=== PATIENT | male | born 1940 | race Caucasian/White ===

== ENCOUNTER → 2018-04-24 | Outpatient (CLI) | payer MEDICARE ==
--- NOTE | 2018-04-24 18:03 | CT ---
EXAMINATION TYPE: CT abdomen pelvis wo con DATE OF EXAM: 04/24/2018 COMPARISON: None HISTORY: LEFT FLANK PAIN, HX OF PROSTATE CA CT DLP: 670.0 mGycm Automated exposure control for dose reduction was used. TECHNIQUE: Helical acquisition of images was performed from the lung bases through the pelvis. FINDINGS: Lung bases are clear. There is no pleural effusion. Heart size is normal. There is no pericardial eff usion. Stomach appears fairly normal. The gallbladder is dilated and measures 5.7 cm in diameter. The intrah epatic bile ducts are not dilated. Spleen appears normal. There is 2.4 cm area of somewhat rounded de nsity in the anterior body of the pancreas that could be a mass. The common bile duct measures 1.7 cm . There is no adrenal mass. There are multiple bilateral renal cortical cysts that measure up to 3.5 cm . There is no hydronephrosis. There is no retroperitoneal adenopathy. Ureters are not dilated. Abdomi nal aorta is atheromatous. There is left hip prosthesis. There is penile implant. The bladder distend s smoothly. There is no evidence of a pelvic mass. The appendix appears normal. I see no intestinal wall thickening. There are no dilated loops. There i s no mesenteric adenopathy or edema. There is multilevel spondylotic changes in the lumbar spine. The re is no compression fracture. The bony pelvis appears intact. There is multilevel laminectomy defect in the lumbar spine. IMPRESSION: Dilated gallbladder. There is also dilated common bile duct. Distal common bile duct obstruction is s uspected. Possible mass in the body of the pancreas. Follow-up is recommended. MR scan or contrast CT scan woul d be helpful for further evaluation if clinically indicated.
== END ==
LOC: RADCTMAIN 17:31
PROVIDERS: ATTEND Family Medicine
DX: K82.8 Other specified diseases of gallbladder (principal); K83.8 Other specified diseases of biliary tract
CPT/HCPCS: 74176

== ENCOUNTER 2018-04-25 09:00 | Inpatient (IN) | payer MEDICARE ==
--- NOTE | 2018-04-25 09:17 | ED ---
General Adult HPI - General Stated complaint: dialated gallbladder Time Seen by Provider: 04/25/18 09:07 Source: patient, family, RN notes reviewed Limitations: no limitations - History of Present Illness Initial comments: Patient is a pleasant 77-year-old male presenting to the emergency department with abnormal CT. Patient did have computed tomography scan done yesterday. This reportedly is secondary to having some abdominal discomfort and jaundice discoloration. Patient has been having intermittent left-sided abdominal discomfort over the past 2-3 weeks. Patient has had some jaundice discoloration that has progressively worsened over the past 2 weeks. No history of similar symptoms previously. No nausea vomiting. patient diarrhea. No fevers. Patient states no discomfort at this time. No history of previous liver disease. Patient was called and was told computed tomography scan was abnormal and to come to the emergency department. - Related Data Home Medications Medication Instructions Recorded Confirmed Aspirin 325 mg PO DAILY 11/16/15 11/29/15 Carisoprodol [Soma] 350 mg PO TID PRN 11/16/15 11/29/15 Multivitamins, Thera [Multivitamin 1 tab PO DAILY 11/16/15 11/29/15 (formulary)] Previous Rx's Medication Instructions Recorded Aspirin 325 mg PO DAILY #30 tab 12/02/15 Docusate [Colace] 100 mg PO BID #60 capsule 12/02/15 Warfarin [Coumadin] 2.5 mg PO DIRECTED #30 tab 12/02/15 HYDROcodone/APAP 10-325MG [[place] 1 - 2 each PO Q6H PRN #90 tab 12/03/15 10-325] Allergies Allergy/AdvReac Type Severity Reaction Status Date / Time No Known Allergies Allergy Verified 11/29/15 12:28 Review of Systems ROS Statement: Those systems with pertinent positive or pertinent negative responses have been documented in the HPI. ROS Other: All systems not noted in ROS Statement are negative. Constitutional: Denies: fever Eyes: Denies: eye pain ENT: Denies: ear pain Respiratory: Denies: cough Cardiovascular: Denies: chest pain Endocrine: Denies: fatigue Gastrointestinal: Reports: abdominal pain Genitourinary: Denies: dysuria Musculoskeletal: Denies: back pain Skin: Reports: rash Neurological: Denies: weakness Past Medical History Past Medical History: Cancer, GERD/Reflux, Osteoarthritis (OA) Additional Past Medical History / Comment(s): Back pain,steroid dose pack September 2015,prostate CA ?1999 History of Any Multi-Drug Resistant Organisms: None Reported Past Surgical History: Back Surgery, Prostate Surgery Additional Past Surgical History / Comment(s): lower back,prostatectomy, cervical fusions x2 Past Anesthesia/Blood Transfusion Reactions: No Reported Reaction Past Psychological History: No Psychological Hx Reported Smoking Status: Former smoker Past Alcohol Use History: Occasional Additional Past Alcohol Use History / Comment(s): quit smoking , smoked for approx 20 yrs 1ppd Past Drug Use History: None Reported - Past Family History Mother Additional Family Medical History / Comment(s): heart problems age 90 Father Family Medical History: Cancer Additional Family Medical History / Comment(s): Father at the age of 68 yrs. Brother(s) Additional Family Medical History / Comment(s): prostate CA Sister(s) Family Medical History: Cancer Additional Family Medical History / Comment(s): 3 sisters with CA General Exam Limitations: no limitations General appearance: alert, in no apparent distress Head exam: Present: atraumatic Eye exam: Present: scleral icterus ENT exam: Present: normal oropharynx Neck exam: Present: normal inspection Respiratory exam: Present: normal lung sounds bilaterally Cardiovascular Exam: Present: regular rate, normal rhythm Expanded Peripheral pulses: 2+: Dorsalis Pedis (R), Dorsalis Pedis (L) GI/Abdominal exam: Present: soft, normal bowel sounds. Absent: distended, tenderness, guarding, rebound, rigid, organomegaly, pulsatile mass Extremities exam: Present: normal inspection Neurological exam: Present: alert Psychiatric exam: Present: normal affect, normal mood Skin exam: Present: other (Jaundiced) Course Vital Signs 04/25/18 09:17 Temperature 98.3 F Pulse Rate 87 Respiratory 18 Rate Blood Pressure 132/75 O2 Sat by Pulse 97 Oximetry Medical Decision Making - Medical Decision Making Case was discussed with Dr. Rollins, who will admit his patient. Patient and family were updated. - Radiology Data Radiology results: report reviewed (CT report from yesterday shows distended gallbladder and biliary duct. Possible pancreatic mass.) Disposition Clinical Impression: Biliary obstruction Disposition: ADMITTED IP TO THIS [facility] Condition: Serious Is patient prescribed a controlled substance at d/c from ED?: No Referrals: Ayo,Jasbir, DO [Primary Care Provider] - 1-2 days Decision Time: 09:17
[2018-04-25] MEDS ORDERED: NALOXONE 0.4 MG/ML 1 ML VIAL IV PRN (09:18)
[2018-04-25 09:57] LABS: Basophils # (A) 0.1 k/uL (0-0.2); Basophils % (A) 1 %; Eosinophils # (A) 0.4 k/uL (0-0.7); Eosinophils % (A) 5 %; HCT 38.9 % (39.0-53.0); HGB 12.3 gm/dL (13.0-17.5); Hypochromasia Slight; Lymphocytes # (A) 1.9 k/uL (1.0-4.8); Lymphocytes % (A) 23 %; MCHC 31.5 g/dL (31.0-37.0); MCV 98.2 fL (80.0-100.0); Mean Platelet Volume 7.7; Monocytes # (A) 0.3 k/uL (0-1.0); Monocytes % (A) 4 %; Neutrophils # (A) 5.4 k/uL (1.3-7.7); Neutrophils % (A) 66 %; Platelet Count 355 k/uL (150-450); RBC 3.96 m/uL (4.30-5.90); RDW 14.9 % (11.5-15.5); WBC 8.2 k/uL (3.8-10.6)
[2018-04-25 10:13] LABS: INR 1.2 (<1.2); Partial Thromboplastin Time 24.9 sec (22.0-30.0); Prothrombin Time 11.4 sec (9.0-12.0)
[2018-04-25 10:17] LABS: ALT 87 U/L (21-72); AST 141 U/L (17-59); Albumin 3.2 g/dL (3.5-5.0); Alkaline Phosphatase 434 U/L (38-126); Amylase 72 U/L (30-110); Anion Gap 11 mmol/L; Blood Urea Nitrogen 16 mg/dL (9-20); Calcium 8.7 mg/dL (8.4-10.2); Carbon Dioxide 21 mmol/L (22-30); Chloride 108 mmol/L (98-107); Glucose 109 mg/dL (74-99); Lipase 888 U/L (23-300); Potassium 4.2 mmol/L (3.5-5.1); Sodium 140 mmol/L (137-145); Total Bilirubin 12.9 mg/dL (0.2-1.3); Total Protein 7.3 g/dL (6.3-8.2)
[2018-04-25] MEDS: SODIUM CHLORIDE 0.9% 1,000 ML IV SCH ×2 (11:42→23:26)
--- NOTE | 2018-04-25 13:38 | P.CONS ---
History of Present Illness - Reason for Consult Consult date: 04/25/18 jaundice Requesting physician: Jasbir Rollins - Chief Complaint jaundice abdominal pain - History of Present Illness 77-year-old gentleman patient of Dr. Rollins with a past medical history of prostate carcinoma status post prostatectomy without chemoradiation, dementia, osteoarthritis multiple back surgeries, and GERD. History obtained from . Patient's spouse notice a slight yellowing of the skin on April 12 as well as new onset of left sided abdominal discomfort radiating down to the inguinal region as well as decreased appetite and mild weight loss. Urine more dark denies acholic stools. No fever or chills diarrhea or constipation hematemesis hematochezia or melena. No history of hepatitis or liver disorders. CT abdomen and pelvis yesterday reported a dilated gallbladder measuring 5.7 cm. 2.4 cm area of somewhat rounded density in the anterior body of the pancreas that could be a mass. CBD 1.7 cm. No mentioning of gallstones. Distal common bile duct obstruction is suspected. MRCP pending. Admission hemoglobin 12.3. White count 8.2. Platelets 355. INR 1.2. Total bilirubin 11.9-12.9. AST 141. ALT 87. AP 434. Lipase 888. Amylase 72. Review of Systems Constitutional: Denies fever, chills, sweats, weight gain, or loss. New onset jaundice. History of dementia. HEENT: Negative for migraines, blurred vision or loss, earaches, drainage, tinnitus, oral mucosal lesions, dysphagia, or odynophagia. Cardiac: Negative for chest pain, arrhythmias, or palpitation. Respiratory: Negative for shortness of breath, hemoptysis, cough, or sputum production. Gastrointestinal: See HPI for pertinent findings. Genitourinary: Negative for hematuria, urgency, frequency, polyuria, dysuria, or penile discharge. Musculoskeletal: Negative for muscle aches, swelling, arthritis, and arthralgias. Neurologic: Negative for stroke or TIA. Endocrine: Negative for thyroid problems. Skin: Negative for rash or itching. Psychiatric: Negative history for depression and anxiety Past Medical History Past Medical History: Cancer, GERD/Reflux, Osteoarthritis (OA) Additional Past Medical History / Comment(s): Back pain,steroid dose pack September 2015,prostate CA ?1999 History of Any Multi-Drug Resistant Organisms: None Reported Past Surgical History: Back Surgery, Prostate Surgery Additional Past Surgical History / Comment(s): lower back,prostatectomy, cervical fusions x2 Past Anesthesia/Blood Transfusion Reactions: No Reported Reaction Past Psychological History: No Psychological Hx Reported Smoking Status: Former smoker Past Alcohol Use History: Occasional Additional Past Alcohol Use History / Comment(s): quit smoking , smoked for approx 20 yrs 1ppd Past Drug Use History: None Reported - Past Family History Mother Additional Family Medical History / Comment(s): heart problems age 90 Father Family Medical History: Cancer Additional Family Medical History / Comment(s): Father at the age of 68 yrs. Brother(s) Additional Family Medical History / Comment(s): prostate CA Sister(s) Family Medical History: Cancer Additional Family Medical History / Comment(s): 3 sisters with CA Medications and Allergies Home Medications Medication Instructions Recorded Confirmed Type Donepezil [Aricept] 10 mg PO HS 04/25/18 04/25/18 History Allergies Allergy/AdvReac Type Severity Reaction Status Date / Time No Known Allergies Allergy Verified 04/25/18 09:26 Physical Exam Vitals: Vital Signs Temp Pulse Pulse Resp BP BP Pulse Ox 04/25/18 11:46 98.6 F 96 18 142/79 04/25/18 09:17 98.3 F 87 18 132/75 97 Intake and Output 04/24/18 04/25/18 04/25/18 22:59 06:59 14:59 Other: Weight 86.183 kg General appearance: The patient is alert, oriented, in no acute distress. Visibly jaundice. HET: Head is normocephalic and atraumatic. Pupils are equal and reactive. Sclerae icterus. Oropharynx is clear without lesions. Neck: Supple without lymphadenopathy. Trachea midline. Heart: S1 S2. Regular rate and rhythm. Lungs: No crackles or wheezes are heard. Abdomen: Soft, mild tenderness to the left upper quadrant, nondistended with bowel sounds. No peritoneal signs. No palpable organomegaly or masses. Extremities: Normal skin color and turgor. No cyanosis, rash, ulceration, clubbing, or edema. Radial and pedal pulses are 2/4 bilaterally. Neurological: No focal deficits. Strength and sensation are grossly intact. Results CBC & Chem 7: 04/25/18 09:45 10/26/18 09:45 Labs: Abnormal Lab Results - Last 24 Hours (Table) 04/25/18 04/25/18 04/25/18 Range/Units 09:45 09:45 09:45 RBC 3.96 L (4.30-5.90) m/uL Hgb 12.3 L (13.0-17.5) gm/dL Hct 38.9 L (39.0-53.0) % INR 1.2 H (<1.2) Chloride 108 H (98-107) mmol/L Carbon Dioxide 21 L (22-30) mmol/L Glucose 109 H (74-99) mg/dL Total Bilirubin 12.9 H (0.2-1.3) mg/dL AST 141 H (17-59) U/L ALT 87 H (21-72) U/L Alkaline Phosphatase 434 H (38-126) U/L Albumin 3.2 L (3.5-5.0) g/dL Lipase 888 H (23-300) U/L CT scan - abdomen: report reviewed (Reviewed by Dr. Phipps) Assessment and Plan (1) Obstructive jaundice Narrative/Plan: 77-year-old male admitted with new onset of jaundice abdominal pain pancreatitis with CT imaging reported a dilated gallbladder and common bile duct stone and possible pancreatic body mass. Possible choledocholithiasis possible neoplasm within the differential. An underlying viral hepatitis needs to be excluded. Current Visit: Yes Status: Acute Code(s): K83.8 - OTHER SPECIFIED DISEASES OF BILIARY TRACT SNOMED Code(s): 36915628 (2) Pancreatitis Current Visit: Yes Status: Acute Code(s): K85.90 - ACUTE PANCREATITIS WITHOUT NECROSIS OR INFECTION, UNSP SNOMED Code(s): 29970184 (3) Dementia Current Visit: Yes Status: Chronic Code(s): F03.90 - UNSPECIFIED DEMENTIA WITHOUT BEHAVIORAL DISTURBANCE SNOMED Code(s): 04846472 Plan: 1. Hepatitis screen. MRCP. CA-19-9 and CEA. CMP CBC pancreatic enzymes in a.m. We'll proceed with ERCP possible biliary stent placement in a.m. Pending MRI findings if pancreatic masses demonstrated on MRI advised outpatient endoscopic ultrasound for further assessment. Will follow closely with you. General surgical consult. 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 The patient spouse has indicated understanding and acceptance of the risks and procedures discussed. Thank you for this kind referral and the opportunity to participate in the care of your patient. This consultation was discussed with Dr. Phipps. The impression and plan of care have been directed as dictated.
--- NOTE | 2018-04-25 13:51 | P.GSCN ---
History of Present Illness Consult date: 04/25/18 Reason for Consult: Jaundice abdominal pain History of present illness: 77-year-old male being seen in the emergency room at the request of the attending for surgical eval for an abnormal CAT scan of the abdomen and pelvis done the day before As part of workup for progressive jaundice with abdominal discomfort. Patient reportedly had been experiencing intermittent episodes of left-sided abdominal discomfort for the past several weeks . No change in appetite no weight loss. No nausea vomiting no diarrhea no fever chills. No prior history of liver disease. Patient was seen by his primary doctor for jaundice underwent a CAT scan abdomen and pelvis CAT abdomen pelvis scan was abnormal patient was called and told to come to the emergency room to be evaluated labs reviewed total bilirubin 12.9 AST 141 ALT 87 alkaline phosphorus 434 white count 8.2 Patient is a poor historian health history is been obtained from interviewing and patient bedside. Patient has a past medical history of prostate cancer , dementia, osteoarthritis, multiple back surgeries, esophageal reflex. Past surgical history back surgery and prostate surgery CAT scan done on April 24 reviewing the report in summary dilated gallbladder , dilated common bile duct , distal common bile duct obstruction suspected reported somewhat round density in the anterior body of the pancreas could be a mass Review of Systems Essentially unremarkable except as mentioned in the present illness Past Medical History Past Medical History: Cancer, GERD/Reflux, Osteoarthritis (OA) Additional Past Medical History / Comment(s): Back pain,steroid dose pack September 2015,prostate [place] ?1999 History of Any Multi-Drug Resistant Organisms: None Reported Past Surgical History: Back Surgery, Prostate Surgery Additional Past Surgical History / Comment(s): lower back,prostatectomy, cervical fusions x2 Past Anesthesia/Blood Transfusion Reactions: No Reported Reaction Past Psychological History: No Psychological Hx Reported Smoking Status: Former smoker Past Alcohol Use History: Occasional Additional Past Alcohol Use History / Comment(s): quit smoking , smoked for approx 20 yrs 1ppd Past Drug Use History: None Reported - Past Family History Mother Additional Family Medical History / Comment(s): heart problems age 90 Father Family Medical History: Cancer Additional Family Medical History / Comment(s): Father at the age of 68 yrs. Brother(s) Additional Family Medical History / Comment(s): prostate CA Sister(s) Family Medical History: Cancer Additional Family Medical History / Comment(s): 3 sisters with CA Medications and Allergies Home Medications Medication Instructions Recorded Confirmed Type Donepezil [Aricept] 10 mg PO HS 04/25/18 04/25/18 History Allergies Allergy/AdvReac Type Severity Reaction Status Date / Time No Known Allergies Allergy Verified 04/25/18 09:26 Surgical - Exam Vital Signs Temp Pulse Resp BP Pulse Ox 98.3 F 87 18 132/75 97 04/25/18 09:17 04/25/18 09:17 04/25/18 09:17 04/25/18 09:17 04/25/18 09:17 GENERAL APPEARANCE: 77-year-old male jaundice alert, oriented, in no acute distress. VITAL SIGNS: Reviewed HEENT: Head is normocephalic and atraumatic. Pupils are equal and reactive. The nares are patent. Oropharynx is clear without lesions. NECK: Supple without lymphadenopathy. Traches midline. HEART: S1, S2. Regular rate and rhythm. No murmur noted LUNGS: No crackles or wheezes are heard. Adequate air movement ABDOMEN: Soft, mild tenderness to the left upper quadrant reports no nausea no vomiting nondistended with good bowel sounds. No peritoneal signs. No palpable organomegaly or masses. reports the patient's urine has been orange in color and dark EXTREMITIES: Normal skin color and turgor. No cyanosis, rash, ulceration, clubbing or edema. Radial pedal pulses are 2/4 bilaterally. NEUROLOGICAL: No focal deficits. Strength and sensation are grossly intact. Results - Labs 04/25/18 09:45 04/25/18 09:45 Abnormal Lab Results - Last 24 Hours (Table) 04/25/18 04/25/18 04/25/18 Range/Units 09:45 09:45 09:45 RBC 3.96 L (4.30-5.90) m/uL Hgb 12.3 L (13.0-17.5) gm/dL Hct 38.9 L (39.0-53.0) % INR 1.2 H (<1.2) Chloride 108 H (98-107) mmol/L Carbon Dioxide 21 L (22-30) mmol/L Glucose 109 H (74-99) mg/dL Total Bilirubin 12.9 H (0.2-1.3) mg/dL AST 141 H (17-59) U/L ALT 87 H (21-72) U/L Alkaline Phosphatase 434 H (38-126) U/L Albumin 3.2 L (3.5-5.0) g/dL Lipase 888 H (23-300) U/L Diabetes panel 04/25/18 Range/Units 09:45 Sodium 140 (137-145) mmol/L Potassium 4.2 (3.5-5.1) mmol/L Chloride 108 H (98-107) mmol/L Carbon Dioxide 21 L (22-30) mmol/L BUN 16 (9-20) mg/dL Creatinine 0.91 (0.66-1.25) mg/dL Glucose 109 H (74-99) mg/dL Calcium 8.7 (8.4-10.2) mg/dL AST 141 H (17-59) U/L ALT 87 H (21-72) U/L Alkaline Phosphatase 434 H (38-126) U/L Total Protein 7.3 (6.3-8.2) g/dL Albumin 3.2 L (3.5-5.0) g/dL Calcium panel 04/25/18 Range/Units 09:45 Calcium 8.7 (8.4-10.2) mg/dL Albumin 3.2 L (3.5-5.0) g/dL Pituitary panel 04/25/18 Range/Units 09:45 Sodium 140 (137-145) mmol/L Potassium 4.2 (3.5-5.1) mmol/L Chloride 108 H (98-107) mmol/L Carbon Dioxide 21 L (22-30) mmol/L BUN 16 (9-20) mg/dL Creatinine 0.91 (0.66-1.25) mg/dL Glucose 109 H (74-99) mg/dL Calcium 8.7 (8.4-10.2) mg/dL Adrenal panel 04/25/18 Range/Units 09:45 Sodium 140 (137-145) mmol/L Potassium 4.2 (3.5-5.1) mmol/L Chloride 108 H (98-107) mmol/L Carbon Dioxide 21 L (22-30) mmol/L BUN 16 (9-20) mg/dL Creatinine 0.91 (0.66-1.25) mg/dL Glucose 109 H (74-99) mg/dL Calcium 8.7 (8.4-10.2) mg/dL Total Bilirubin 12.9 H (0.2-1.3) mg/dL AST 141 H (17-59) U/L ALT 87 H (21-72) U/L Alkaline Phosphatase 434 H (38-126) U/L Total Protein 7.3 (6.3-8.2) g/dL Albumin 3.2 L (3.5-5.0) g/dL Assessment and Plan Assessment: Impression Present on admission obstructive jaundice new-onset suspect Present on admission left upper quadrant abdominal pain Present on admission pancreatitis elevated lipase Dementia without behavioral disturbance CAT scan of the abdomen and pelvis showed dilated gallbladder common bile duct stone possible pancreatic body mass CAT scan of the abdomen pelvis possible cholelithiasis possible neoplasm within the gallbladder History prostate cancer Plan Schedule MRCP today GI service plans ERCP with possible biliary stent placement tomorrow morning Follow up on the CA-19-9 and CEA markers Follow up on the pending MRI report Repeat labs in the morning DVT and GI prophylaxis Further surgical recommendations pending will follow with you Surgical consultation dictated for dr mcintosh The above impression and plan of care have been discussed and directed by signing physician. Darling Rai nurse practitioner acting as scribe for signing physician.
[2018-04-25 13:52] LABS: Appearance,Urine Cloudy (Clear); Bilirubin,Urine 3+ (Negative); Blood,Urine Negative (Negative); Color,Urine Dark Brown; Glucose,Urine (UA) Negative (Negative); Ketones,Urine Negative (Negative); Leukocyte Esterase,Urine Negative (Negative); Mucus,Urine Few /hpf; Nitrite,Urine Negative (Negative); PH, Urine 5.5 (5.0-8.0); Protein,Urine Trace (Negative); RBC,Urine 1 /hpf (0-5); Specific Gravity,Urine 1.014 (1.001-1.035); Urobilinogen,Urine <2.0 mg/dL (<2.0); WBC,Urine <1 /hpf (0-5)
--- NOTE | 2018-04-25 19:10 | MR ---
EXAMINATION TYPE: MR MRCP DATE OF EXAM: 04/25/2018 COMPARISON: None HISTORY: Jaundice, Left side abdominal pain Standard multiplanar, multisequence MRI departmental protocol Multiplanar, multisequence images of the abdomen were acquired. FINDINGS: The liver shows no focal defect. There is marked dilation of the gallbladder that measure 6 cm in diameter. There is dilated intra and extrahepatic biliary tree. The common bile duct measures 1.5 cm. There is also dilated pancreatic duct. Pancreatic duct measures 7 mm. There is a fusiform str icture of the distal common bile duct. The lumen measures 2 to 3 mm. There is also stricture of the d istal pancreatic duct. The lumen is obliterated. This is in same location as the common bile duct str icture. The pancreatic duct segment of narrowing measures 1.5 cm. Stricture of the common bile duct m easures 5 mm in length. I do not see a definite filling defect within the common bile duct. I do not see a definite mass in the pancreatic head. There is a fluid signal 1.8 cm area in the posterior aspect of the body of the pancreas near the panc reatic head consistent with a pseudocyst. There are multiple bilateral renal cortical cysts. These measure up to 4.5 cm. There is no hydronephr osis. The spleen appears normal. Stomach appears normal. There is no adrenal mass. There is no hydron ephrosis. There is no evidence of ascites. IMPRESSION: Dilated pancreatic duct and entire biliary tree. Dilated gallbladder. There are strictures of the com mon bile duct and pancreatic duct without a definite obstructing mass seen. I would consider possibil ities of benign stricture as well as cholangiocarcinoma. No evidence of a common duct stone. There is pseudocyst in the body of the pancreas near the pancreatic head.
[2018-04-26 03:31] LABS: Hepatitis A Antibody IgM Non-Reactive (Non-Reactive)
[2018-04-26 03:32] LABS: Hepatitis B Core IgM Non-Reactive (Non-Reactive)
[2018-04-26] MEDS: SODIUM CHLORIDE 0.9% 1,000 ML IV SCH ×3 (04:21→23:17)
[2018-04-26] MEDS ORDERED: INDOMETHACIN 50MG SUPPOSITORY RECTAL ONE ×2 (06:00→07:00)
[2018-04-26] MEDS ORDERED: LEVOFLOXACIN 500MG-D5W PMX 500 MG in DEXTROSE/WATER 1 100ML.BAG IVPB ONE ×2 (06:00→07:00)
[2018-04-26] MEDS: PANTOPRAZOLE 40 MG/10 ML VIAL IV SCH (07:49)
[2018-04-26] MEDS ORDERED: IV FLUID CONTINUATION 900 ML IV ONE (08:36)
[2018-04-26] MEDS ORDERED: PROPOFOL 10 MG/ML 20 ML VIAL IV ONE (08:42)
[2018-04-26] MEDS ORDERED: LIDOCAINE 1% INJ 10MG/ML (20 ML MDV) ONE (08:42)
[2018-04-26] MEDS ORDERED: KETAMINE 10 MG/ML 20 ML VIAL ONE (08:42)
[2018-04-26] MEDS ORDERED: IOHEXOL 300 MG/ML 50 ML BOTTLE MISCELLANE ONE (09:18)
--- NOTE | 2018-04-26 09:23 | P.PCN ---
Date of Procedure: 04/26/18 Procedure(s) Performed: Brief history: Patient is a 77-year-old white male, admitted hospital with abdominal pain for the last 2 weeks' duration associated with decreased appetite weight loss of 12 pounds and jaundice. He was noted to have elevated bilirubin at 12 g/dL, And phosphatase of 400s and mild elevation of serum transaminases. CT of the abdomen showed dilated CBD and questionable lesion in the body of the pancreas. Subsequent MRCP showed stricture of the distal common bile duct and mild dilation of pancreatic duct with no evidence of pancreatic mass.He is hence scheduled for an ERCP to evaluate further Procedure performed: ERCP with CBD stent placement Preoperative diagnoses: obstructive jaundice IV sedation per anesthesia: Procedure: After informed consent was obtained from the patient and after the risks benefits and complications including bleeding perforation and pancreatitis explained in detail the patient was brought into the endoscopy unit. The patient was placed in prone position and IV conscious sedation was administered by anesthesia under continuous monitoring. The Olympus side-viewing duodenoscope was then inserted into the mouth and esophagus intubated without any difficulty. The scope was gradually advanced into the stomach and duodenum. The major papilla was identified without any difficulty. initial cannulation resulted in the base of occasional the pancreatic duct. There was irregular stricture in the head of the pancreas with distal pancreatic ductal dilation. Subsequently using a guidewire technique I was able to cannulate the common bile duct and upon injection of the dye there was a short tight stricture in the distal CBD measuring 1 cm in length with significant proximal biliary ductal dilation. At this time proceeded with a 7-[place], 5 cm pigtail stent into the proximal CBD to ensure biliary drainage. Following this I tried to cannulate the pancreatic duct but this time I was not successful and hence for cytology and was not performed. Patient tolerated the procedure Impression: !. Dilated common bile duct with the short distal common bile duct stricture measuring 1 cm in length, status post 7-Montene[place] 5 cm pigtail stent placement as described above 2. Irregular stricture of the pancreatic duct involving the head of the pancreas with distal ductal dilation. This is suspicious for pancreatic neoplasm Recommendations: The findings of this examination were discussed with the patient . We will repeat labs in the morning and if his bilirubin is improving he can be discharged home and I will make outpatient arrangements for him to be evaluate at [facility] for endoscopic ultrasound of the pancreas.
--- NOTE | 2018-04-26 09:45 | P.PN ---
Progress Note - Text Progress Note Date: 04/26/18 The patient resting comfortably in his bed. His MRCP performed yesterday shows evidence of a distal common bile duct stricture. On exam is lesser stable. His evidence soft. Patient will be scheduled for ERCP today with possible biliary stent. We will follow with you.
--- NOTE | 2018-04-26 09:51 | FL ---
FLUOROSCOPY 55 seconds of fluoroscopy time were utilized during ERCP. 5 images document the procedure.
[2018-04-26 10:21] LABS: ALT 79 U/L (21-72); AST 126 U/L (17-59); Albumin 2.5 g/dL (3.5-5.0); Alkaline Phosphatase 349 U/L (38-126); Amylase 62 U/L (30-110); Anion Gap 6 mmol/L; Blood Urea Nitrogen 15 mg/dL (9-20); Carbon Dioxide 23 mmol/L (22-30); Chloride 111 mmol/L (98-107); Glucose 94 mg/dL (74-99); Lipase 781 U/L (23-300); Potassium 4.2 mmol/L (3.5-5.1); Sodium 140 mmol/L (137-145); Total Bilirubin 11.8 mg/dL (0.2-1.3)
[2018-04-26 10:30] LABS: Basophils % (A) 1 %; Eosinophils # (A) 0.1 k/uL (0-0.7); Eosinophils % (A) 2 %; HCT 35.4 % (39.0-53.0); HGB 11.2 gm/dL (13.0-17.5); Hypochromasia Slight; Lymphocytes # (A) 1.4 k/uL (1.0-4.8); Lymphocytes % (A) 24 %; MCH 30.8 pg (25.0-35.0); MCHC 31.6 g/dL (31.0-37.0); MCV 97.5 fL (80.0-100.0); Mean Platelet Volume 7.4; Monocytes # (A) 0.3 k/uL (0-1.0); Monocytes % (A) 6 %; Neutrophils % (A) 67 %; Platelet Count 314 k/uL (150-450); RBC 3.63 m/uL (4.30-5.90); RDW 14.8 % (11.5-15.5); WBC 5.9 k/uL (3.8-10.6)
[2018-04-26] MEDS ORDERED: ACETAMINOPHEN TAB 325 MG TAB PO PRN (10:53)
[2018-04-26] MEDS ORDERED: ONDANSETRON 4 MG/2 ML VIAL IVP PRN (10:53)
[2018-04-26 11:25] VITALS: BMI 28.8
--- NOTE | 2018-04-26 15:50 | P.PN ---
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 77-year-old gentleman patient of Dr. Rollins with a past medical history of prostate carcinoma status post prostatectomy without chemoradiation, dementia, osteoarthritis multiple back surgeries, and GERD. pt could not provide history , information obtained from staff and medical records. pt presents because spouse notice a slight yellowing of the skin on April 12 as well as new onset of left sided abdominal discomfort radiating down to the inguinal region as well as decreased appetite and mild weight loss. Urine more dark denies acholic stools. No fever or chills diarrhea or constipation hematemesis hematochezia or melena. No history of hepatitis or liver disorders. 04/26/2018 pt is improving slightly , pt could not provide infomraiton , pt with televated CA 9-19 , possible pancreatic mass, stauts post stenting. his liver enz and lipase are trending down slightly . Objective - Vital Signs Vital signs: Vital Signs Temp 97.7 F 04/26/18 09:50 Pulse 89 04/26/18 11:24 Resp 16 04/26/18 09:50 BP 153/91 04/26/18 11:24 Pulse Ox 95 04/26/18 11:24 Intake & Output 04/25/18 04/26/18 04/26/18 18:59 06:59 18:59 Intake Total 200 Balance 200 Weight 86.183 kg 86.183 kg Intake: IV 200 Other: Voiding Method Toilet Toilet Toilet # Voids 2 3 - Exam GENERAL: The patient is alert and awake, not in any acute distress. HEENT: Pupils are round and equally reacting to light. EOMI. No scleral icterus. No conjunctival pallor. Normocephalic, atraumatic. No pharyngeal erythema. No thyromegaly. CARDIOVASCULAR: S1 and S2 present. No murmurs, rubs, or gallops. PULMONARY: Chest is clear to auscultation, no wheezing or crackles. -ABDOMEN: Soft, Mild left upper quadrant tenderness, no rebound. nondistended, normoactive bowel sounds. No palpable organomegaly. MUSCULOSKELETAL: No joint swelling or deformity. EXTREMITIES: No cyanosis, clubbing, or pedal edema. NEUROLOGICAL: Gross neurological examination did not reveal any focal deficits. SKIN: No rashes. - Labs CBC & Chem 7: 04/26/18 09:47 04/26/18 09:47 Labs: Abnormal Lab Results - Last 24 Hours (Table) 04/25/18 04/26/18 04/26/18 Range/Units 09:45 09:47 09:47 RBC 3.63 L (4.30-5.90) m/uL Hgb 11.2 L (13.0-17.5) gm/dL Hct 35.4 L (39.0-53.0) % Chloride 111 H (98-107) mmol/L Calcium 8.0 L (8.4-10.2) mg/dL Total Bilirubin 11.8 H (0.2-1.3) mg/dL AST 126 H (17-59) U/L ALT 79 H (21-72) U/L Alkaline Phosphatase 349 H (38-126) U/L Total Protein 6.0 L (6.3-8.2) g/dL Albumin 2.5 L (3.5-5.0) g/dL Lipase 781 H (23-300) U/L CA 19-9 Antigen 132.9 H (0.0-34.9) U/mL Assessment and Plan Assessment: obstructive jaundice dilated gallbladder and common bile duct stone possible distal obstruction pancreatic body mass pancreatitis history of prostate carcinoma status post prostatectomy dementia osteoarthritis, s/p multiple back surgeries GERD Plan: this is a pleasant 77 yo M who presests with obstructive jaundice and possible mass. elevated CA 9-19, continue with the same medication , continue with the same treatment, resume home medication , monitor lyts and vitals and liver test . GI and DVT prophylaxis , further recommendation as per clinical course of the pt DVT prophylasix :
[2018-04-26] MEDS: DONEPEZIL 10 MG TAB PO SCH (20:56)
[2018-04-27] MEDS: PANTOPRAZOLE 40 MG/10 ML VIAL IV SCH (07:57)
[2018-04-27] MEDS: SODIUM CHLORIDE 0.9% 1,000 ML IV SCH ×2 (08:02→16:20)
[2018-04-27 08:17] LABS: Albumin 2.5 g/dL (3.5-5.0); Calcium 8.3 mg/dL (8.4-10.2); Potassium 4.1 mmol/L (3.5-5.1); Total Protein 6.1 g/dL (6.3-8.2)
[2018-04-27 08:28] LABS: HCT 35.5 % (39.0-53.0); HGB 11.2 gm/dL (13.0-17.5); MCH 30.7 pg (25.0-35.0); MCHC 31.5 g/dL (31.0-37.0); MCV 97.3 fL (80.0-100.0); Mean Platelet Volume 7.3; Platelet Count 296 k/uL (150-450); RBC 3.64 m/uL (4.30-5.90); RDW 15.3 % (11.5-15.5); WBC 6.7 k/uL (3.8-10.6)
[2018-04-27 09:08] LABS: Neutrophils # (M) 5.09 k/uL (1.3-7.7); Neutrophils % (M) 76 %; Nucleated Red Blood Cells 0 /100 WBC (0-0); Total Cells Counted 100
--- NOTE | 2018-04-27 10:01 | P.PN ---
Progress Note - Text Progress Note Date: 04/27/18 The patient resting In his bed. He underwent ERCP yesterday which showed a 1 cm distal common bile duct stricture, which is suspicious for a pancreatic neoplasm. Patient has stent placement. On exam his abdomen is soft. Status post biliary stent placement for obstructive jaundice. Patient is stable for discharge home. He'll follow-up with a tertiary care center for further workup of his probable pancreatic mass.
--- NOTE | 2018-04-27 10:33 | P.PN ---
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 77-year-old gentleman patient of Dr. Rollins with a past medical history of prostate carcinoma status post prostatectomy without chemoradiation, dementia, osteoarthritis multiple back surgeries, and GERD. pt could not provide history , information obtained from staff and medical records. pt presents because spouse notice a slight yellowing of the skin on April 12 as well as new onset of left sided abdominal discomfort radiating down to the inguinal region as well as decreased appetite and mild weight loss. Urine more dark denies acholic stools. No fever or chills diarrhea or constipation hematemesis hematochezia or melena. No history of hepatitis or liver disorders. 04/26/2018 pt is improving slightly , pt could not provide infomraiton , pt with televated CA 9-19 , possible pancreatic mass, stauts post stenting. his liver enz and lipase are trending down slightly . 04/27/2018 Patient still improving gradually. Is less abdominal pain and is tolerating his diet. No bowel movement yet. Patient informed about the possible of cancer as he has possible pancreatic mass and cholangiocarcinoma is suspected too. Patient verbalized understanding and acceptance. Patient needs further workup for this reason. GI and surgery teams R following the case. Objective - Vital Signs Vital signs: Vital Signs Temp 98.4 F 04/27/18 06:10 Pulse 84 04/27/18 06:10 Resp 16 04/27/18 06:10 BP 131/71 04/27/18 06:10 Pulse Ox 96 04/27/18 06:10 Intake & Output 04/26/18 04/27/18 04/27/18 18:59 06:59 18:59 Intake Total 800 Balance 800 Weight 86.183 kg Intake: IV 200 Oral 600 Other: Voiding Method Toilet Toilet Toilet # Voids 1 1 - Exam GENERAL: The patient is alert and awake, not in any acute distress. HEENT: Pupils are round and equally reacting to light. EOMI. No scleral icterus. No conjunctival pallor. Normocephalic, atraumatic. No pharyngeal erythema. No thyromegaly. CARDIOVASCULAR: S1 and S2 present. No murmurs, rubs, or gallops. PULMONARY: Chest is clear to auscultation, no wheezing or crackles. -ABDOMEN: Soft, Mild left upper quadrant tenderness, no rebound. nondistended, normoactive bowel sounds. No palpable organomegaly. MUSCULOSKELETAL: No joint swelling or deformity. EXTREMITIES: No cyanosis, clubbing, or pedal edema. NEUROLOGICAL: Gross neurological examination did not reveal any focal deficits. SKIN: No rashes. - Labs CBC & Chem 7: 04/27/18 07:42 04/27/18 07:42 Labs: Abnormal Lab Results - Last 24 Hours (Table) 04/26/18 04/27/18 04/27/18 Range/Units 09:47 07:42 07:42 RBC 3.63 L 3.64 L (4.30-5.90) m/uL Hgb 11.2 L 11.2 L (13.0-17.5) gm/dL Hct 35.4 L 35.5 L (39.0-53.0) % Lymphocytes # (Manual) 0.60 L (1.0-4.8) k/uL Chloride 111 H (98-107) mmol/L Calcium 8.3 L (8.4-10.2) mg/dL Total Bilirubin 9.0 H (0.2-1.3) mg/dL AST 149 H (17-59) U/L ALT 85 H (21-72) U/L Alkaline Phosphatase 339 H (38-126) U/L Total Protein 6.1 L (6.3-8.2) g/dL Albumin 2.5 L (3.5-5.0) g/dL Lipase (23-300) U/L 04/27/18 Range/Units 07:42 RBC (4.30-5.90) m/uL Hgb (13.0-17.5) gm/dL Hct (39.0-53.0) % Lymphocytes # (Manual) (1.0-4.8) k/uL Chloride (98-107) mmol/L Calcium (8.4-10.2) mg/dL Total Bilirubin (0.2-1.3) mg/dL AST (17-59) U/L ALT (21-72) U/L Alkaline Phosphatase (38-126) U/L Total Protein (6.3-8.2) g/dL Albumin (3.5-5.0) g/dL Lipase 399 H (23-300) U/L Assessment and Plan Assessment: obstructive jaundice dilated gallbladder and common bile duct stone possible distal obstruction pancreatic body mass pancreatitis history of prostate carcinoma status post prostatectomy dementia osteoarthritis, s/p multiple back surgeries GERD Plan: this is a pleasant 77 yo M who presests with obstructive jaundice and possible mass. elevated CA 9-19, continue with the same medication , continue with the same treatment, resume home medication , monitor lyts and vitals and liver test . GI and DVT prophylaxis , further recommendation as per clinical course of the pt Dr. Rollins resume the care of the patient tomorrow
--- NOTE | 2018-04-27 13:03 | PN ---
PROGRESS NOTE Patient is a 77-year-old pleasant white male admitted to the hospital with abdominal pain and obstructive jaundice of 2 weeks duration. He underwent an ERCP yesterday which revealed a stricture of the pancreatic head with pancreatic ductal dilation as well as a short distal common bile duct stricture with proximal CBD dilation and he underwent a CBD stent placement. The findings were suspicious for pancreatic neoplasm. The patient is doing better today. No abdominal pain. No nausea, vomiting. PHYSICAL EXAMINATION: Appears comfortable in no apparent distress. Vital signs are stable. Blood pressure 153/91, pulse rate 89, temperature 98. HEENT examination is unremarkable. Conjunctivae pink. Sclerae anicteric. Oral cavity, no lesions. NECK: No JVD or lymph node enlargement. The chest was clear to auscultation. HEART: Regular rate and rhythm. The abdomen is soft, nontender, nondistended. Bowel sounds are positive. No organomegaly. EXTREMITIES: No pedal edema. SKIN: No rashes. NEURO: He is alert and oriented x3. No focal deficits. LABS: WBC 6.7, hemoglobin 11.2, platelets are normal. Bilirubin is down to 9. AST and ALT are 149 and 85, respectively. Alkaline phosphatase 339. CA-99 is 132. IMPRESSION: 1. Obstructive jaundice/abdominal pain of 2 weeks duration. ERCP done yesterday showed stricture pancreatic head with distal bile duct dilation and short stricture involving the distal common bile duct stricture with proximal biliary dilation, status post ERCP with stent placement. Patient doing much better today. 2. Elevated CA 99 at 132. RECOMMENDATIONS: I discussed with the patient about the ERCP findings and suspicion for pancreatic neoplasm. At this time, since he is doing well, he can be discharged home today and I will make arrangements for him to be seen at [facility] for endoscopic ultrasound of the pancreas early next week. He will also follow up with me in the office in 3-4 days. MMODL / IJN: [id number] /
[2018-04-27 15:49] VITALS: RESP 18
[2018-04-27] MEDS: DONEPEZIL 10 MG TAB PO SCH (21:10)
[2018-04-28 02:47] VITALS: BP 151/74
[2018-04-28] MEDS: SODIUM CHLORIDE 0.9% 1,000 ML IV SCH (06:05)
[2018-04-28 07:46] VITALS: PULSE 93; TEMP 99.5
[2018-04-28] MEDS: PANTOPRAZOLE 40 MG/10 ML VIAL IV SCH (08:59)
[2018-04-28 09:20] LABS: Albumin 2.8 g/dL (3.5-5.0); Anion Gap 7 mmol/L; Blood Urea Nitrogen 13 mg/dL (9-20); Calcium 8.3 mg/dL (8.4-10.2); Carbon Dioxide 25 mmol/L (22-30); Chloride 108 mmol/L (98-107); Glucose 125 mg/dL (74-99); Potassium 4.2 mmol/L (3.5-5.1); Sodium 140 mmol/L (137-145); Total Protein 6.5 g/dL (6.3-8.2)
[2018-04-28 09:21] LABS: ALT 96 U/L (21-72); AST 149 U/L (17-59); Alkaline Phosphatase 368 U/L (38-126); Basophils # (A) 0.1 k/uL (0-0.2); Basophils % (A) 1 %; Eosinophils # (A) 0.3 k/uL (0-0.7); Eosinophils % (A) 5 %; HCT 36.6 % (39.0-53.0); HGB 11.9 gm/dL (13.0-17.5); Hypochromasia Slight; Lymphocytes # (A) 1.7 k/uL (1.0-4.8); Lymphocytes % (A) 25 %; MCH 31.6 pg (25.0-35.0); MCHC 32.4 g/dL (31.0-37.0); MCV 97.4 fL (80.0-100.0); Monocytes # (A) 0.4 k/uL (0-1.0); Monocytes % (A) 6 %; Neutrophils # (A) 4.3 k/uL (1.3-7.7); Neutrophils % (A) 62 %; Platelet Count 289 k/uL (150-450); RBC 3.76 m/uL (4.30-5.90); RDW 15.2 % (11.5-15.5); Total Bilirubin 7.3 mg/dL (0.2-1.3); WBC 6.9 k/uL (3.8-10.6)
--- NOTE | 2018-04-28 09:51 | P.PN ---
Subjective Progress Note Date: 04/28/18 Principal diagnosis: Obstructive jaundice Feels better. Status post ERCP with biliary stent placement. White count 6.9. Hemoglobin 11.9. Platelet 289. Total bilirubin 7.3. AST 149. ALT 96. AP 368. CA-19-9 132.9. Objective - Vital Signs Vital signs: Vital Signs Temp 99.5 F 04/28/18 07:00 Pulse 93 04/28/18 07:00 Resp 18 04/28/18 07:00 BP 151/74 04/27/18 23:00 Pulse Ox 98 04/28/18 07:00 Intake & Output 04/27/18 04/28/18 04/28/18 18:59 06:59 18:59 Intake Total 650 Balance 650 Intake: Oral 650 Other: Voiding Method Toilet # Voids 4 1 - Exam General appearance: The patient is alert, oriented, in no acute distress. Jaundice. HET: Head is normocephalic and atraumatic. Pupils are equal and reactive. Sclerae icterus. Oropharynx is clear without lesions. Neck: Supple without lymphadenopathy. Trachea midline. Heart: S1 S2. Regular rate and rhythm. Lungs: No crackles or wheezes are heard. Abdomen: Soft, nontender, nondistended with bowel sounds. No peritoneal signs. No palpable organomegaly or masses. Extremities: Normal skin color and turgor. No cyanosis, rash, ulceration, clubbing, or edema. Radial and pedal pulses are 2/4 bilaterally. Neurological: No focal deficits. Strength and sensation are grossly intact. - Labs CBC & Chem 7: 04/28/18 08:24 04/28/18 08:24 Labs: Abnormal Lab Results - Last 24 Hours (Table) 04/28/18 04/28/18 Range/Units 08:24 08:24 RBC 3.76 L (4.30-5.90) m/uL Hgb 11.9 L (13.0-17.5) gm/dL Hct 36.6 L (39.0-53.0) % Chloride 108 H (98-107) mmol/L Glucose 125 H (74-99) mg/dL Calcium 8.3 L (8.4-10.2) mg/dL Total Bilirubin 7.3 H (0.2-1.3) mg/dL AST 149 H (17-59) U/L ALT 96 H (21-72) U/L Alkaline Phosphatase 368 H (38-126) U/L Albumin 2.8 L (3.5-5.0) g/dL Assessment and Plan (1) Obstructive jaundice Narrative/Plan: That is post ERCP biliary stent placement underlying neoplasm could not be excluded Current Visit: Yes Status: Acute Code(s): K83.8 - OTHER SPECIFIED DISEASES OF BILIARY TRACT SNOMED Code(s): 02583268 (2) Pancreatitis Current Visit: Yes Status: Acute Code(s): K85.90 - ACUTE PANCREATITIS WITHOUT NECROSIS OR INFECTION, UNSP SNOMED Code(s): 15550748 (3) Dementia Current Visit: Yes Status: Chronic Code(s): F03.90 - UNSPECIFIED DEMENTIA WITHOUT BEHAVIORAL DISTURBANCE SNOMED Code(s): 89632649 (4) Elevated CA 19-9 level Current Visit: Yes Status: Acute Code(s): R97.8 - OTHER ABNORMAL TUMOR MARKERS SNOMED Code(s): 439029812 Plan: 1. Agreeable for discharge. Follow-up in office May [address] Melendez for discussion of outpatient [facility] office will facilitate follow-up. Discharge per medicine. Assessment and plan a care discussed with Dr. Phipps
[2018-04-28 11:22] LABS: Target Cells Present
--- NOTE | 2018-04-28 11:23 | P.DS ---
Providers Date of admission: 04/25/18 09:20 Expected date of discharge: 04/28/18 Attending physician: Jasbir Rollins Consults: 04/25/18 09:18 Consult Physician Urgent Consulting Provider: Natividad Melendez Consult Reason/Comments: Biliary obstruction, probable ERCP Do you want consulting provider notified?: Yes 04/25/18 09:20 Consult Physician Urgent Consulting Provider: Chung Parikh Consult Reason/Comments: billiary obstruction Do you want consulting provider notified?: Yes Primary care physician: Jasbir Rollins [facility] Hospital Course: 77-year-old male with a past medical history of prostate carcinoma status post prostatectomy without chemoradiation, dementia, osteoarthritis multiple back surgeries, and GERD. The patient is a poor historian. Apparently , the patient had been having some abdominal pain as well as jaundice. The patient has also noticed decreased appetite and unintentional weight loss. He underwent a CT on 04/24/2018 revealing dilated gallbladder measuring 5.7 cm. 2.4 cm area of somewhat rounded density in the anterior body of the pancreas that could be a mass. CBD 1.7 cm. No mentioning of gallstones. Distal common bile duct obstruction is suspected. GI was consulted for further evaluation. Admission hemoglobin 12.3. White count 8.2. Platelets 355. INR 1.2. Total bilirubin 11.9-12.9. AST 141. ALT 87. AP 434. Lipase 888. Amylase 72. The patient underwent MRCP revealing dilated pancreatic duct and entire biliary tree. Dilated gallbladder. There are strictures of the common bile duct and pancreatic duct without a definite obstructing mass seen. Possibility of benign stricture as well as choloangiocarcinoma. No evidence of common duct stone. There is a pseudocyst in the body of the pancreas near the pancreas. He underwent ERCP on 04/26/2018 with stent placement to the common bile duct. Irregular stricture of the pancreatic duct involving the head of the pancreas with distal ductal dilation. This was suspicious for pancreatic neoplasm. The patient was cleared for discharge from a GI standpoint. He is to follow up with GI on an outpatient basis. GI service making arrangements for the patient to be evaluated at [facility] for endoscopic evaluation of the pancreas. The patient is also to follow-up with Dr. Rollins outpatient. DISCHARGE DIAGNOSIS: Obstructive jaundice, status post ERCP with placement of stent to common bile duct. Neoplasm cannot be excluded, elevated CA 19-9 level Acute pancreatitis History of prostate carcinoma status post prostatectomy History of dementia Osteoarthritis, status post multiple back surgeries History of GERD Nurse practitioner note has been reviewed by physician. Signing provider agrees with the documented findings, assessment, and plan of care. Patient Condition at Discharge: Fair Plan - Discharge Summary Discharge Rx Participant: No New Discharge Prescriptions: Continue Donepezil [Aricept] 10 mg PO HS Discharge Medication List Donepezil [Aricept] 10 mg PO HS 04/25/18 [History] Follow up Appointment(s)/Referral(s): Jasbir Rollins DO [Primary Care Provider] - 1 Week Natividad Melendez MD [STAFF PHYSICIAN] - 05/01/18 4:30 pm Discharge Disposition: HOME SELF-CARE
--- NOTE | 2018-05-01 12:11 | CDI ---
Documentation Clarification Form Date: 05/01/18 From: Nena Suh Phone: If questions, call Alee Hdz @ Admit Date: 04/25/2018 9:20:00 AM Patient Name: Rupesh Carlos Visit Number: [id number] Discharge Date:04/28/18 ATTENTION: The Clinical Documentation Specialists (CDI) and [facility] Coding Staff appreciate your assistance in clarifying documentation. Please respond to the clarification below the line at the bottom and electronically sign. The CDI & [facility] Coding staff will review the response and follow-up if needed. Please note: Queries are made part of the Legal Health Record. If you have any questions, please contact the author of this message via ITS. Jasbir Lazcano , Patient presented with obstructive jaundice. Final discharge diagnosis is Obstructive jaundice Neoplasm cannot be excluded.On 04/27, Patient informed about the possible of cancer as he has possible pancreatic mass and cholangiocarcinoma is suspected too. Patient history/risk factors: Prostate CA HX Clinical Indicators: elevated CA 19-[address]: strictures of the common bile duct and pancreatic duct without a definite obstructing mass seen. Possibility of benign stricture as well as cholangiocarcinoma. No evidence of common duct stone ERCP 04/26 showed Irregular stricture of the pancreatic duct involving the head of the pancreas with distal ductal &dilation.This was suspicious for pancreatic neoplasm. Follow up with [facility] was arranged In your professional opinion, can you please specify likely or possible neoplastic behavior for both the pancreatic mass and the suspected cholangiocarcinoma , if known? possible primary pancreatic malignancy possible secondary pancreatic malignancy primary cholangiocarcinoma of the common bile duct secondary CBD malignancy In situ Of uncertain behavior Other, please specify Unable to determine MTDD
--- NOTE | 2018-05-06 20:25 | CDI ---
Documentation Clarification Form Date: 05/06/2018 From: Nena Suh Phone: If question, call Alee Hdz, Clearing Tub Worker, Admit Date: 04/25/2018 9:20:00 AM Patient Name: Rupesh Carlos Visit Number: [id number] Discharge Date: 04/28/18 ATTENTION: The Clinical Documentation Specialists (CDI) and [facility] Coding Staff appreciate your assistance in clarifying documentation. Please respond to the clarification below the line at the bottom and electronically sign. The CDI & [facility] Coding staff will review the response and follow-up if needed. Please note: Queries are made part of the Legal Health Record. If you have any questions, please contact the author of this message via ITS. Jasbir Adrian , Patient presented with obstructive jaundice. Final discharge diagnosis is Obstructive jaundice, status post ERCP with placement of stent to common bile duct. Neoplasm cannot be excluded, elevated CA 19-9 level . On 04/27, Patient informed about the possible of cancer as he has possible pancreatic mass and cholangiocarcinoma is suspected too. Patient history/risk factors: Prostate CA HX Clinical Indicators: elevated CA 19-[address]: strictures of the common bile duct and pancreatic duct without a definite obstructing mass seen. Possibility of benign stricture as well as cholangiocarcinoma. No evidence of common duct stone ERCP 04/26 showed Irregular stricture of the pancreatic duct involving the head of the pancreas with distal ductal &dilation.This was suspicious for pancreatic neoplasm. Follow up with [facility] was arranged. In your professional opinion, can you please specify likely or possible neoplastic behavior for both the pancreatic mass and the suspected cholangiocarcinoma , if known? possible primary pancreatic malignancy possible secondary pancreatic malignancy primary cholangiocarcinoma of the common bile duct secondary CBD malignancy In situ Of uncertain behavior Other, please specify Unable to determine See addendum to Discharge Summary MTDD
== END 2018-04-28 12:15 | disposition home or self-care (01) | DRG 444 ==
LOC: EC 09:00 → 4SSUR 09:20 → 4MS4W 14:33
PROVIDERS: ADMIT Family Medicine; ATTEND Family Medicine
PROC: 0F798DZ Dilation of Common Bile Duct with Intraluminal Device, Via Natural or Artificial Opening Endoscopic (ICD-10-PCS; principal; 2018-04-26 07:45)
DX: K83.1 Obstruction of bile duct (principal); K85.90 Acute pancreatitis without necrosis or infection, unspecified; K86.3 Pseudocyst of pancreas; C22.1 Intrahepatic bile duct carcinoma; K21.9 Gastro-esophageal reflux disease without esophagitis; Z90.79 Acquired absence of other genital organ(s); Z85.46 Personal history of malignant neoplasm of prostate; F03.90 Unspecified dementia, unspecified severity, without behavioral disturbance, psychotic disturbance, mood disturbance, and anxiety; M19.90 Unspecified osteoarthritis, unspecified site; Z98.1 Arthrodesis status; Z87.891 Personal history of nicotine dependence; Z82.49 Family history of ischemic heart disease and other diseases of the circulatory system; Z80.42 Family history of malignant neoplasm of prostate; Z80.9 Family history of malignant neoplasm, unspecified; Z79.899 Other long term (current) drug therapy; Z79.82 Long term (current) use of aspirin; Z79.01 Long term (current) use of anticoagulants; D49.0 Neoplasm of unspecified behavior of digestive system
CPT/HCPCS: 43260; 43274; 74176; 74181; 74330; 80053; 80061; 80074; 81001; 82150; 82247; 82248; 82378; 83690; 85025; 85610; 85730; 86301; 87086; 99285

== ENCOUNTER 2019-03-12 14:24 | Inpatient (IN) | payer MEDICARE ==
[2019-03-12] MEDS ORDERED: SODIUM CHLORIDE 0.9% 500 ML 500 ML IV STA (15:10)
[2019-03-12] MEDS ORDERED: PANTOPRAZOLE 40 MG/10 ML VIAL IVP STA (15:10)
--- NOTE | 2019-03-12 15:24 | ED ---
General Adult HPI - General Chief complaint: Weakness Stated complaint: Weakness Time Seen by Provider: 03/12/19 14:30 Source: EMS, RN notes reviewed Mode of arrival: EMS Limitations: physical limitation - History of Present Illness Initial comments: This is a 78-year-old male who presents emergency Department with a past medical history significant of pancreatic cancer. Patient had Whipple procedure done 2 months ago. Patient comes in today because he is extremely weak and getting weaker. Family states he doesn't eat or drink much. Family states his stools are black and they're worried about bleeding. Patient denies any abdominal pain patient denies nausea vomiting diarrhea. Patient denies chest pain palpitations difficulty breathing or shortness of breath. Patient denies headache patient denies numbness weakness. - Related Data Home Medications Medication Instructions Recorded Confirmed Donepezil [Aricept] 10 mg PO HS 04/25/18 03/12/19 Aspirin EC [Ecotrin Low Dose] 81 mg PO DAILY 03/12/19 03/12/19 Lipase/Protease/Amylase [Sophia Hollingsworth 72,000 units PO TID BETWEEN MEALS 03/12/19 03/12/19 36,000 Units Capsule] Lipase/Protease/Amylase [Sophia Hollingsworth 108,000 units PO TID 03/12/19 03/12/19 36,000 Units Capsule] Allergies Allergy/AdvReac Type Severity Reaction Status Date / Time No Known Allergies Allergy Verified 03/12/19 15:19 Review of Systems ROS Statement: Those systems with pertinent positive or pertinent negative responses have been documented in the HPI. ROS Other: All systems not noted in ROS Statement are negative. Past Medical History Past Medical History: Cancer, Dementia, GERD/Reflux, Hyperlipidemia, Memory Impairment, Osteoarthritis (OA) Additional Past Medical History / Comment(s): 1999 Prostate cancer with prostatectomy, occasional low back pain with bilateral lower leg numbness but much improved since back surgery, hyperlipidemia in past but taken off RX, bilateral pedal edema past 1-2 years History of Any Multi-Drug Resistant Organisms: None Reported Past Surgical History: Back Surgery, Joint Replacement, Prostate Surgery Additional Past Surgical History / Comment(s): Prostatectomy, low back surgery, 2 cervical fusions, total L hip arthroplasty, ESS, colonoscopy. Past Anesthesia/Blood Transfusion Reactions: No Reported Reaction Past Psychological History: No Psychological Hx Reported Smoking Status: Former smoker - Past Family History Mother Additional Family Medical History / Comment(s): heart problems age 90 Father Family Medical History: Cancer Additional Family Medical History / Comment(s): Father at the age of 68 yrswith metatstatic cancer unknown primary. Brother(s) Additional Family Medical History / Comment(s): prostate CA Sister(s) Family Medical History: Cancer Additional Family Medical History / Comment(s): 3 sisters with CA General Exam - General Exam Comments Initial Comments: GENERAL: Patient is well-developed and well-nourished. Patient is nontoxic and well- hydrated and is in mild distress. ENT: Neck is soft and supple. No significant lymphadenopathy is noted. Oropharynx is clear. Moist mucous membranes. Neck has full range of motion without eliciting any pain. EYES: The sclera were anicteric and conjunctiva were pink and moist. Extraocular movements were intact and pupils were equal round and reactive to light. Eyelids were unremarkable. PULMONARY: Unlabored respirations. Good breath sounds bilaterally. No audible rales rhonchi or wheezing was noted. CARDIOVASCULAR: There is a regular rate and rhythm without any murmurs gallops or rubs. ABDOMEN: Soft and nontender with normal bowel sounds. No palpable organomegaly was noted. There is no palpable pulsatile mass. RECTAL: On rectal exam the stool was black SKIN: Pale NEUROLOGIC: Patient is alert and oriented x3. Cranial nerves II through XII are grossly intact. Motor and sensory are also intact. Normal speech, volume and content. Symmetrical smile. MUSCULOSKELETAL: Normal extremities with adequate strength and full range of motion. No lower extremity swelling or edema. No calf tenderness. LYMPHATICS: No significant lymphadenopathy is noted PSYCHIATRIC: Normal psychiatric evaluation. Limitations: physical limitation Course Vital Signs 03/12/19 14:28 Temperature 97.8 F Pulse Rate 80 Respiratory 16 Rate Blood Pressure 118/68 O2 Sat by Pulse 100 Oximetry Medical Decision Making - Medical Decision Making I spoke to Dr. Rollins and he agreed to admit the patient admitted the patient I wrote admitting orders I continued CBCs every 6 hours - Lab Data Result diagrams: 03/12/19 15:09 03/12/19 15:09 Lab Results 03/12/19 03/12/19 03/12/19 Range/Units 15:09 15:09 15:09 WBC 8.2 (3.8-10.6) k/uL RBC 2.73 L (4.30-5.90) m/uL Hgb 8.4 L (13.0-17.5) gm/dL Hct 25.7 L (39.0-53.0) % MCV 94.3 (80.0-100.0) fL MCH 30.8 (25.0-35.0) pg MCHC 32.6 (31.0-37.0) g/dL RDW 13.6 (11.5-15.5) % Plt Count 304 (150-450) k/uL Neutrophils % 81 % Lymphocytes % 12 % Monocytes % 4 % Eosinophils % 2 % Basophils % 0 % Neutrophils # 6.6 (1.3-7.7) k/uL Lymphocytes # 1.0 (1.0-4.8) k/uL Monocytes # 0.3 (0-1.0) k/uL Eosinophils # 0.2 (0-0.7) k/uL Basophils # 0.0 (0-0.2) k/uL PT 14.5 H (9.0-12.0) sec INR 1.4 H (<1.2) APTT 27.1 (22.0-30.0) sec Sodium 137 (137-145) mmol/L Potassium 4.1 (3.5-5.1) mmol/L Chloride 111 H (98-107) mmol/L Carbon Dioxide 21 L (22-30) mmol/L Anion Gap 5 mmol/L BUN 34 H (9-20) mg/dL Creatinine 0.86 (0.66-1.25) mg/dL Est GFR (CKD-EPI)AfAm >90 (>60 ml/min/1.73 sqM) Est GFR (CKD-EPI)NonAf 84 (>60 ml/min/1.73 sqM) Glucose 147 H (74-99) mg/dL Calcium 7.3 L (8.4-10.2) mg/dL Magnesium 1.7 (1.6-2.3) mg/dL Total Bilirubin 0.3 (0.2-1.3) mg/dL AST 45 (17-59) U/L ALT 27 (21-72) U/L Alkaline Phosphatase 78 (38-126) U/L Troponin I (0.000-0.034) ng/mL Total Protein 4.7 L (6.3-8.2) g/dL Albumin 1.9 L (3.5-5.0) g/dL Stool Occult Blood (Negative) 03/12/19 03/12/19 Range/Units 15:09 15:09 WBC (3.8-10.6) k/uL RBC (4.30-5.90) m/uL Hgb (13.0-17.5) gm/dL Hct (39.0-53.0) % MCV (80.0-100.0) fL MCH (25.0-35.0) pg MCHC (31.0-37.0) g/dL RDW (11.5-15.5) % Plt Count (150-450) k/uL Neutrophils % % Lymphocytes % % Monocytes % % Eosinophils % % Basophils % % Neutrophils # (1.3-7.7) k/uL Lymphocytes # (1.0-4.8) k/uL Monocytes # (0-1.0) k/uL Eosinophils # (0-0.7) k/uL Basophils # (0-0.2) k/uL PT (9.0-12.0) sec INR (<1.2) APTT (22.0-30.0) sec Sodium (137-145) mmol/L Potassium (3.5-5.1) mmol/L Chloride (98-107) mmol/L Carbon Dioxide (22-30) mmol/L Anion Gap mmol/L BUN (9-20) mg/dL Creatinine (0.66-1.25) mg/dL Est GFR (CKD-EPI)AfAm (>60 ml/min/1.73 sqM) Est GFR (CKD-EPI)NonAf (>60 ml/min/1.73 sqM) Glucose (74-99) mg/dL Calcium (8.4-10.2) mg/dL Magnesium (1.6-2.3) mg/dL Total Bilirubin (0.2-1.3) mg/dL AST (17-59) U/L ALT (21-72) U/L Alkaline Phosphatase (38-126) U/L Troponin I <0.012 (0.000-0.034) ng/mL Total Protein (6.3-8.2) g/dL Albumin (3.5-5.0) g/dL Stool Occult Blood Positive (Negative) Disposition Clinical Impression: Anemia, GI bleed Disposition: ADMITTED IP TO THIS HOSP Referrals: Jasbir Rollins DO [Primary Care Provider] - 1-2 days Time of Disposition: 16:15
[2019-03-12 15:28] LABS: Basophils % (A) 0 %; Eosinophils # (A) 0.2 k/uL (0-0.7); Eosinophils % (A) 2 %; HCT 25.7 % (39.0-53.0); HGB 8.4 gm/dL (13.0-17.5); Lymphocytes % (A) 12 %; MCH 30.8 pg (25.0-35.0); MCHC 32.6 g/dL (31.0-37.0); MCV 94.3 fL (80.0-100.0); Mean Platelet Volume 8.1; Monocytes # (A) 0.3 k/uL (0-1.0); Monocytes % (A) 4 %; Neutrophils # (A) 6.6 k/uL (1.3-7.7); Neutrophils % (A) 81 %; Platelet Count 304 k/uL (150-450); RBC 2.73 m/uL (4.30-5.90); RDW 13.6 % (11.5-15.5); WBC 8.2 k/uL (3.8-10.6)
[2019-03-12 15:40] LABS: INR 1.4 (<1.2); Partial Thromboplastin Time 27.1 sec (22.0-30.0); Prothrombin Time 14.5 sec (9.0-12.0)
[2019-03-12 15:45] LABS: ALT 27 U/L (21-72); AST 45 U/L (17-59); African American GFR (CKD) >90 (>60 ml/min/1.73 sqM); Albumin 1.9 g/dL (3.5-5.0); Alkaline Phosphatase 78 U/L (38-126); Anion Gap 5 mmol/L; Blood Urea Nitrogen 34 mg/dL (9-20); Calcium 7.3 mg/dL (8.4-10.2); Carbon Dioxide 21 mmol/L (22-30); Chloride 111 mmol/L (98-107); Glucose 147 mg/dL (74-99); Magnesium 1.7 mg/dL (1.6-2.3); Sodium 137 mmol/L (137-145); Total Bilirubin 0.3 mg/dL (0.2-1.3); Total Protein 4.7 g/dL (6.3-8.2)
[2019-03-12 15:58] LABS: Potassium 4.1 mmol/L (3.5-5.1)
[2019-03-12] MEDS ORDERED: SODIUM CHLORIDE 0.9% 1,000 ML IV ONE (16:15)
[2019-03-12 17:33] VITALS: BMI 24.3
[2019-03-12 21:11] LABS: Basophils % (A) 0 %; Eosinophils # (A) 0.1 k/uL (0-0.7); Eosinophils % (A) 1 %; HCT 25.6 % (39.0-53.0); HGB 8.3 gm/dL (13.0-17.5); Lymphocytes # (A) 1.8 k/uL (1.0-4.8); Lymphocytes % (A) 20 %; MCH 30.5 pg (25.0-35.0); MCHC 32.4 g/dL (31.0-37.0); MCV 94.1 fL (80.0-100.0); Mean Platelet Volume 7.5; Monocytes # (A) 0.4 k/uL (0-1.0); Monocytes % (A) 4 %; Neutrophils # (A) 6.9 k/uL (1.3-7.7); Neutrophils % (A) 74 %; Platelet Count 333 k/uL (150-450); RBC 2.72 m/uL (4.30-5.90); RDW 13.9 % (11.5-15.5); WBC 9.4 k/uL (3.8-10.6)
[2019-03-13 08:19] LABS: Basophils % (A) 1 %; Eosinophils # (A) 0.2 k/uL (0-0.7); Eosinophils % (A) 2 %; HCT 20.7 % (39.0-53.0); Lymphocytes # (A) 1.6 k/uL (1.0-4.8); Lymphocytes % (A) 23 %; MCH 31.4 pg (25.0-35.0); MCHC 33.3 g/dL (31.0-37.0); MCV 94.2 fL (80.0-100.0); Mean Platelet Volume 7.2; Monocytes # (A) 0.4 k/uL (0-1.0); Monocytes % (A) 5 %; Neutrophils # (A) 4.8 k/uL (1.3-7.7); Neutrophils % (A) 68 %; Platelet Count 244 k/uL (150-450); RDW 13.2 % (11.5-15.5)
[2019-03-13 08:42] LABS: HGB 6.9 gm/dL (13.0-17.5)
[2019-03-13] MEDS ORDERED: FUROSEMIDE 10 MG/ML 2 ML VIAL IVP ONE (09:04)
--- NOTE | 2019-03-13 12:45 | P.CONS ---
History of Present Illness - Reason for Consult Consult date: 03/13/19 GI bleed Requesting physician: Jasbir Rollins - Chief Complaint weakness melena - History of Present Illness 78-year-old gentleman per nursing with an underlying history of dementia pancreatic cancer. History obtained from nursing staff ER medical records. Patient has a history of pancreatic cancer with Whipple procedure possibly 2 months ago at [facility] Dr. Szymanski. Previous ERCP biliary stent in March [address] Sreedhar Melendez for obstructive jaundice. Patient admitted to the ER secondary to fatigue family noticed black or looking bowel moods. Nursing reports a bowel movement last night that was red in color. Presently he is resting comfortably denying abdominal pain. According to the patient his last colonoscopy was more than 10 years ago he is unsure if he had a recent EGD patient stated he had stomach cancer and had surgery last year. Upon interv iewing the nursing staff they clarified that he had surgery for pancreatic cancer within the past few months. No reports of coffee-ground emesis or gross hematemesis. Admission hemoglobin 8.4 presently 6.9 blood transfusion ordered. MCV 94. Platelet 244. INR 1.4. BUN 34. Creatinine 0.8. FOBT positive. LFTs normal. Home medications reviewed no NSAIDs or antiplatelet medications. Review of Systems Constitutional: Denies fever, chills, sweats, weight gain, or loss. Fatigue. HEENT: Negative for migraines, blurred vision or loss, earaches, drainage, tinnitus, oral mucosal lesions, dysphagia, or odynophagia. Cardiac: Negative for chest pain, arrhythmias, or palpitation. Respiratory: Negative for shortness of breath, hemoptysis, cough, or sputum production. Gastrointestinal: See HPI for pertinent findings. Genitourinary: Negative for hematuria, urgency, frequency, polyuria, dysuria, or penile discharge. Musculoskeletal: Negative for muscle aches, swelling, arthritis, and arthralgias. Neurologic: Negative for stroke or TIA. Endocrine: Negative for thyroid problems. Skin: Negative for rash or itching. Psychiatric: Negative history for depression and anxiety Past Medical History Past Medical History: Cancer, Dementia, GERD/Reflux, Hyperlipidemia, Memory Impairment, Osteoarthritis (OA) Additional Past Medical History / Comment(s): 1999 Prostate cancer with prostatectomy, occasional low back pain with bilateral lower leg numbness but much improved since back surgery, hyperlipidemia in past but taken off RX, bilateral pedal edema past 1-2 years History of Any Multi-Drug Resistant Organisms: None Reported Past Surgical History: Back Surgery, Joint Replacement, Prostate Surgery Additional Past Surgical History / Comment(s): Prostatectomy, low back surgery, 2 cervical fusions, total L hip arthroplasty, ESS, colonoscopy. Past Anesthesia/Blood Transfusion Reactions: No Reported Reaction Past Psychological History: No Psychological Hx Reported Additional Psychological History / Comment(s): Pt resides with his spouse of 56 yrs. He uses a cane occasionally. He is independent. Smoking Status: Former smoker Past Alcohol Use History: Occasional Additional Past Alcohol Use History / Comment(s): Pt started smoking in 1954 and quit in 1984. Past Drug Use History: None Reported - Past Family History Mother Additional Family Medical History / Comment(s): heart problems age 90 Father Family Medical History: Cancer Additional Family Medical History / Comment(s): Father at the age of 68 yrswith metatstatic cancer unknown primary. Brother(s) Additional Family Medical History / Comment(s): prostate CA Sister(s) Family Medical History: Cancer Additional Family Medical History / Comment(s): 3 sisters with CA Medications and Allergies Home Medications Medication Instructions Recorded Confirmed Type Donepezil [Aricept] 10 mg PO HS 04/25/18 03/12/19 History Aspirin EC [Ecotrin Low Dose] 81 mg PO DAILY 03/12/19 03/12/19 History Lipase/Protease/Amylase [Sophia Hollingsworth 72,000 units PO TID BETWEEN MEALS 03/12/19 03/12/19 History 36,000 Units Capsule] Lipase/Protease/Amylase [Sophia Hollingsworth 108,000 units PO TID 03/12/19 03/12/19 History 36,000 Units Capsule] Allergies Allergy/AdvReac Type Severity Reaction Status Date / Time No Known Allergies Allergy Verified 03/12/19 15:19 Physical Exam Vitals: Vital Signs Temp Pulse Pulse Pulse Resp BP BP 03/13/19 07:00 98.3 F 80 16 108/63 03/13/19 01:35 98.7 F 77 18 113/70 03/12/19 19:07 98.7 F 87 18 118/58 03/12/19 17:55 98.2 F 80 12 120/72 03/12/19 14:28 97.8 F 80 16 118/68 Pulse Ox 03/13/19 07:00 100 03/13/19 01:35 99 03/12/19 19:07 100 03/12/19 17:55 100 03/12/19 14:28 100 Intake and Output 03/12/19 03/13/19 03/13/19 22:59 06:59 14:59 Intake Total 750 Output Total 100 200 125 Balance -100 550 -125 Intake: Intake, IV Titration 750 Amount Sodium Chloride 0.9% 1, 750 000 ml @ 75 mls/hr IV . [id number] ONE Rx#:[id number] Output: Urine 100 200 125 Other: # Voids 1 # Bowel Movements 1 general appearance: The patient is alert, in no acute distress. HET: Head is normocephalic and atraumatic. Pupils are equal and reactive. Oropharynx is clear without lesions. Neck: Supple without lymphadenopathy. Trachea midline. Heart: S1 S2. Regular rate and rhythm. Lungs: No crackles or wheezes are heard. Abdomen: Soft, nontender, nondistended with bowel sounds. No peritoneal signs. No palpable organomegaly or masses. Extremities: Normal skin color and turgor. No cyanosis, rash, ulceration, clubbing, or edema. Radial and pedal pulses are 2/4 bilaterally. Neurological: No focal deficits. Strength and sensation are grossly intact. Results CBC & Chem 7: 03/13/19 07:17 03/12/19 15:09 Labs: Abnormal Lab Results - Last 24 Hours (Table) 03/12/19 03/12/19 03/12/19 Range/Units 14:39 15:09 15:09 RBC 2.73 L (4.30-5.90) m/uL Hgb 8.4 L (13.0-17.5) gm/dL Hct 25.7 L (39.0-53.0) % PT (9.0-12.0) sec INR (<1.2) Chloride 111 H (98-107) mmol/L Carbon Dioxide 21 L (22-30) mmol/L BUN 34 H (9-20) mg/dL Glucose 147 H (74-99) mg/dL Calcium 7.3 L (8.4-10.2) mg/dL Total Protein 4.7 L (6.3-8.2) g/dL Albumin 1.9 L (3.5-5.0) g/dL Crossmatch See Detail 03/12/19 03/12/19 03/13/19 Range/Units 15:09 20:52 07:17 RBC 2.72 L 2.20 L (4.30-5.90) m/uL Hgb 8.3 L 6.9 L* (13.0-17.5) gm/dL Hct 25.6 L 20.7 L (39.0-53.0) % PT 14.5 H (9.0-12.0) sec INR 1.4 H (<1.2) Chloride (98-107) mmol/L Carbon Dioxide (22-30) mmol/L BUN (9-20) mg/dL Glucose (74-99) mg/dL Calcium (8.4-10.2) mg/dL Total Protein (6.3-8.2) g/dL Albumin (3.5-5.0) g/dL Crossmatch Assessment and Plan (1) Anemia Narrative/Plan: Acute GI bleed component of acute blood loss anemia fatigue melena per family report with underlying history of pancreatic cancer s/p recent Whipple. Nursing reported red colored bowel movement last night with remote history of colonoscopy more than 10 years ago. Current Visit: Yes Status: Acute Code(s): D64.9 - ANEMIA, UNSPECIFIED SNOMED Code(s): 502642873 (2) Pancreatic cancer Narrative/Plan: History of obstructive jaundice 03/2018 s/p ERCP biliary stent followed by reported Whipple possible 2 months ago at [facility]. Current Visit: Yes Status: Acute Code(s): C25.9 - MALIGNANT NEOPLASM OF PANCREAS, UNSPECIFIED SNOMED Code(s): 539424936 Plan: 1. Surgical records requested from [facility] on chart for review. 2. Clear liquids. CBC monitoring. Blood transfusion as indicated. 3. Protonix 40 mg BID. 4. EGD/colonoscopy in am. The hydrotechnical specialist has discussed the risks, benefits and alternative therapies for the above-mentioned procedure and for both sedation/analgesia as well as necessary blood product administration, if indicated, as they pertain to this patient. The patient has indicated understanding and acceptance of the risks and procedures discussed. Thank you for this kind referral and the opportunity to participate in the care of your patient. This consultation was discussed with Dr. Melendez. The impression and plan of care have been directed as dictated.
--- NOTE | 2019-03-13 14:51 | P.CONS ---
History of Present Illness - Reason for Consult Consult date: 03/13/19 Pancreatic Cancer Requesting physician: Angelina Nguyen - Chief Complaint Melena - History of Present Illness This is a very nice patient who initially presented with obstructive jaundice in March/2018,he had extensive work up,ERCP and tent palcement,was referred to [facility],multiple attempted to obtain tissue diagnosis were unsuccessful. 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 Only seen in January one time by Dr. Obrien in office and at this time he discussed with the patient and his He is at very high risk of systemic recurrence and local recurrence. His performance status is very borderline at this time. They discussed adjuvant systemic therapy regimen, Dr. obrien did not think he would be a candidate for modified FOLFIRINX regimen or gemzar/xeloda combination. They, discussed single agent gemzar,potential side effects/benefits,the absolute benefit from it is likely small, if no systemic recurrence,may consider c hemoradiation with oral xeloda after treatment with single agent gemzar. Consider repeating imaging studies,it has been almost 2 months since his surgery to make sure he has not developed metastatic disease already. His stated that he has a follow up at [facility] on 02/27/[address] scan will be repeated then, plan was to will await results and further improvement in his PS before deciding on adjuvant therapy. Also,in view of his personal history of prostate and pancreatic cancer and in view of his family history,discussed genetic testing,the implications of positive or negative results on him and his family,they agreed to proceed with it. Next gen Sequencing and Genetic testing are pending I have requested CT from [facility] from January. His hemoglobin today is 6.9 and One unit of PRBC has been ordered He was admitted with Bloody stools. GI is following. Review of Systems A 14 point review of systems was assessed and completed and are all negative except for HPI Past Medical History Past Medical History: Cancer, Dementia, GERD/Reflux, Hyperlipidemia, Memory Impairment, Osteoarthritis (OA) Additional Past Medical History / Comment(s): 1999 Prostate cancer with prostatectomy, occasional low back pain with bilateral lower leg numbness but much improved since back surgery, hyperlipidemia in past but taken off RX, bilateral pedal edema past 1-2 years History of Any Multi-Drug Resistant Organisms: None Reported Past Surgical History: Back Surgery, Joint Replacement, Prostate Surgery Additional Past Surgical History / Comment(s): Prostatectomy, low back surgery, 2 cervical fusions, total L hip arthroplasty, ESS, colonoscopy. Past Anesthesia/Blood Transfusion Reactions: No Reported Reaction Past Psychological History: No Psychological Hx Reported Additional Psychological History / Comment(s): Pt resides with his spouse of 56 yrs. He uses a cane occasionally. He is independent. Smoking Status: Former smoker Past Alcohol Use History: Occasional Additional Past Alcohol Use History / Comment(s): Pt started smoking in 1954 and quit in 1984. Past Drug Use History: None Reported - Past Family History Mother Additional Family Medical History / Comment(s): heart problems age 90 Father Family Medical History: Cancer Additional Family Medical History / Comment(s): Father at the age of 68 yrswith metatstatic cancer unknown primary. Brother(s) Additional Family Medical History / Comment(s): prostate CA Sister(s) Family Medical History: Cancer Additional Family Medical History / Comment(s): 3 sisters with CA Medications and Allergies Home Medications Medication Instructions Recorded Confirmed Type Donepezil [Aricept] 10 mg PO HS 04/25/18 03/12/19 History Aspirin EC [Ecotrin Low Dose] 81 mg PO DAILY 03/12/19 03/12/19 History Lipase/Protease/Amylase [Sophia Hollingsworth 72,000 units PO TID BETWEEN MEALS 03/12/19 03/12/19 History 36,000 Units Capsule] Lipase/Protease/Amylase [Sophia Hollingsworth 108,000 units PO TID 03/12/19 03/12/19 History 36,000 Units Capsule] Allergies Allergy/AdvReac Type Severity Reaction Status Date / Time No Known Allergies Allergy Verified 03/12/19 15:19 Physical Exam Vitals: Vital Signs Temp Pulse Pulse Pulse Resp BP BP 03/13/19 14:07 98.4 F 85 16 109/61 03/13/19 13:37 98.2 F 78 16 103/57 03/13/19 13:27 98.5 F 71 16 102/52 03/13/19 07:00 98.3 F 80 16 108/63 03/13/19 01:35 98.7 F 77 18 113/70 03/12/19 19:07 98.7 F 87 18 118/58 03/12/19 17:55 98.2 F 80 12 120/72 Pulse Ox 03/13/19 14:07 100 03/13/19 13:37 100 03/13/19 13:27 97 03/13/19 07:00 100 03/13/19 01:35 99 03/12/19 19:07 100 03/12/19 17:55 100 Intake and Output 03/12/19 03/13/19 03/13/19 22:59 06:59 14:59 Intake Total 750 600 Output Total 100 200 125 Balance -100 550 475 Intake: IV 600 Sodium Chloride 0.9% 1, 600 000 ml @ 75 mls/hr IV . [id number] ONE Rx#:[id number] Intake, IV Titration 750 Amount Sodium Chloride 0.9% 1, 750 000 ml @ 75 mls/hr IV . [id number] ONE Rx#:[id number] Blood Product 0 Rc As-1 Unit 0 [id number] Output: Urine 100 200 125 Other: Voiding Method Urinal # Voids 1 # Bowel Movements 1 Gen: Alert and Oriented, NAD Head: NCNT Neck Supple Heart RRR Lungs No increased effort CTA B Abdomen: S/ND/NT Ext: No Rash, No Edema, Equal Strength Psych: Calm and Coroperative Neuro: No Focal Deficits Noted. Results CBC & Chem 7: 03/13/19 07:17 03/12/19 15:09 Labs: Abnormal Lab Results - Last 24 Hours (Table) 03/12/19 03/12/19 03/12/19 Range/Units 14:39 15:09 15:09 RBC 2.73 L (4.30-5.90) m/uL Hgb 8.4 L (13.0-17.5) gm/dL Hct 25.7 L (39.0-53.0) % PT (9.0-12.0) sec INR (<1.2) Chloride 111 H (98-107) mmol/L Carbon Dioxide 21 L (22-30) mmol/L BUN 34 H (9-20) mg/dL Glucose 147 H (74-99) mg/dL Calcium 7.3 L (8.4-10.2) mg/dL Total Protein 4.7 L (6.3-8.2) g/dL Albumin 1.9 L (3.5-5.0) g/dL Crossmatch See Detail 03/12/19 03/12/19 03/13/19 Range/Units 15:09 20:52 07:17 RBC 2.72 L 2.20 L (4.30-5.90) m/uL Hgb 8.3 L 6.9 L* (13.0-17.5) gm/dL Hct 25.6 L 20.7 L (39.0-53.0) % PT 14.5 H (9.0-12.0) sec INR 1.4 H (<1.2) Chloride (98-107) mmol/L Carbon Dioxide (22-30) mmol/L BUN (9-20) mg/dL Glucose (74-99) mg/dL Calcium (8.4-10.2) mg/dL Total Protein (6.3-8.2) g/dL Albumin (3.5-5.0) g/dL Crossmatch Assessment and Plan Plan: Assessment and Rec: Normocytic Anemia: - Acute Blood Loss Anemia, possible component of dilution - Red Stools per RN and Family - GI is following - PRBC Transfusing, can draw iron studies although accuracy maybe decreased with PRBC transfusion - Agree with transfusion less than 7 Recent Diagnosis Pancreastic Carcinoma: - Status Post Whipple [facility] 2 months prior - Due to decreased performance status and baseline mental status from dementia it was felt he was not a good candidate for sytemic treatment in combination which would e the standard treatment options - CT scan restage at [facility] 03.31.19, will obtain this and the result of the Next Gen sequencing ordered in January to see if further options available - Recommend GI Evaluation with EGD and Colonoscopy, planned for tomorrow am - Await these results Continue supportive care and GI evaluation Carmen REYESP Physician Attest: I have completed the full history history and physical and devloped the above impression and plan agree with dictation by Carmen Gamboa NP, Dictated as a scribe
[2019-03-13] MEDS ORDERED: PEG 3350-NA SULF,BICARB,CL/KCL 4,000 ML BOTTLE PO ONE (15:00)
[2019-03-14] MEDS ORDERED: NA PHOS,M-B/NA PHOS,DI-BA 133 ML ENEMA RECTAL STA (07:49)
[2019-03-14] MEDS ORDERED: IV FLUID CONTINUATION 200 ML IV ONE (08:48)
[2019-03-14] MEDS ORDERED: LIDOCAINE 1% INJ 10MG/ML (20 ML MDV) ONE (09:00)
[2019-03-14] MEDS ORDERED: PROPOFOL 10 MG/ML 20 ML VIAL IV ONE (09:00)
[2019-03-14] MEDS ORDERED: LACTATED RINGERS 1,000 ML IV ONE (09:10)
--- NOTE | 2019-03-14 09:31 | P.PCN ---
Date of Procedure: 03/14/19 Procedure(s) Performed: Brief history: Patient is a pleasant 78-year-old white male, admitted to the hospital with acute GI bleed. He had several episodes of bright red blood per rectum for the last 2 days' duration. He dropped his hemoglobin went from 8.3-6.9 g/dL requiring a unit of blood transfusion. He is status post Whipple surgery at [facility] in November 2089 of pancreas cancer. Because of the GI bleed he is scheduled for an upper endoscopy as well as colonoscopy . Procedure performed: Esophagogastroduodenoscopy Colonoscopy with snare polypectomy Preoperative diagnosis: acute GI bleed Anesthesia: MAC Procedure: After informed consent was obtained from the patient was brought into the endoscopy unit and IV sedation was administered by anesthesia under continuous monitoring. Initially upper endoscopy was done. The Olympus GF 160 video endoscope was inserted inserted into the mouth and esophagus intubated without any difficulty and was gradually advanced into the stomach was evidence of previous Whipple surgery with distal antrectomy. There is mild gastritis noted in the body of the stomach. The gastrojejunal anastomosis was visualized and appeared normal. The scope was advanced into the jejunum and approximately 60 cm was visualized and appeared normal. There was some bilious fluid noted in this area. The scope was then withdrawn into the stomach. The body, cardia and fundus appeared normal. The scope was then withdrawn into the esophagus. The GE junction was located at 40 cm to the incisors. It appeared regular with no erythema erosions or ulcerations. Rest of the esophagus appeared normal. Patient tolerated the procedure well. At this time the patient continued to remain sedation. Initial digital rectal examination was normal. Olympus CF 160 video colonoscope was then inserted into the rectum and gradually advanced to the cecum without any difficulty. Careful examination was performed as the scope was gradually being withdrawn. The prep was excellent. There was liquid brown stool in the right colon. Terminal ileum was intubated and 20 cm visualized appeared normal. The cecum appeared normal. In the ascending colon there was a 5 mm sessile polyp that was removed by snare polypectomy Rest of the, ascending colon, transverse colon, appeared normal. There was some old diluted blood noted in the left colon. There were scattered left-sided diverticulosis seen but no active bleeding identified. Rest of the descending colon, sigmoid colon and rectum appeared normal. Retroflexion was performed in the rectum and no lesions were noted. Patient tolerated the procedure well. Impression: 1. Upper endoscopy revealed evidence of Whipple surgery with distal antrectomy and gastrojejunostomy that appeared normal. No active upper GI bleed 2. Colonoscopy revealed some old blood in the left colon with scattered sigmoid diverticulosis which appears to be the source of bleeding. No active bleeding at the time of examination. A 5 mm ascending colon polyp was seen status post snare polypectomy Recommendations: Findings of this examination were discussed with the patient as well as his family. He will be started on a full liquid diet. CBC every 12 hours.
[2019-03-14] MEDS: SODIUM CHLORIDE 0.9% 1,000 ML IV SCH ×3 (11:16→20:51)
[2019-03-14 12:13] LABS: Basophils # (A) 0.1 k/uL (0-0.2); Basophils % (A) 1 %; Eosinophils # (A) 0.4 k/uL (0-0.7); Eosinophils % (A) 5 %; HCT 28.2 % (39.0-53.0); Lymphocytes # (A) 1.3 k/uL (1.0-4.8); Lymphocytes % (A) 16 %; MCH 30.3 pg (25.0-35.0); MCHC 32.6 g/dL (31.0-37.0); MCV 93.1 fL (80.0-100.0); Mean Platelet Volume 9.5; Monocytes # (A) 0.3 k/uL (0-1.0); Monocytes % (A) 3 %; Neutrophils # (A) 6.1 k/uL (1.3-7.7); Neutrophils % (A) 75 %; Platelet Count 190 k/uL (150-450); RBC 3.03 m/uL (4.30-5.90); WBC 8.1 k/uL (3.8-10.6)
[2019-03-14 12:17] LABS: HGB 9.2 gm/dL (13.0-17.5)
--- NOTE | 2019-03-14 12:26 | P.HPIM ---
History of Present Illness 38-year-old pleasant gentleman came in with bright red blood per rectum. Patient underwent colonoscopy found to have a bleeding polyp which was cauterized and polyp was removed. Patient had 1 bowel movement with clots patient will be monitored for more GI bleed clinically will obtain another repeat hemoglobin later in the day today. Patient will be transfused if hemoglobin is less than 7 or if he had any other bowel movement which is bloody. Patient to was having some lightheadedness when he stands up patient will be started on IV fluids. Patient was recently diagnosed with pancreatic cancer recently underwent Whipple's procedure because of which patient was on pancreatic enzyme supplements for 3 on which will be resumed patient denied any hematemesis or melena. Denied any NSAID use. And MCV is 94 hemoglobin when he came in was around 6.9. received 1 unit of PRBC transfusion Review of Systems REVIEW OF SYSTEMS: CONSTITUTIONAL: No fever, no malaise, no fatigue. HEENT: No recent visual problems or hearing problems. Denied any sore throat. CARDIOVASCULAR: No chest pain, orthopnea, PND, no palpitations, no syncope. PULMONARY: No shortness of breath, no cough, no hemoptysis. GASTROINTESTINAL: as mentioned in HPI NEUROLOGICAL: No headaches, no weakness, no numbness. HEMATOLOGICAL: Denies any bleeding or petechiae. GENITOURINARY: Denies any burning micturition, frequency, or urgency. MUSCULOSKELETAL/RHEUMATOLOGICAL: Denies any joint pain, swelling, or any muscle pain. ENDOCRINE: Denies any polyuria or polydipsia. The rest of the 14-point review of systems is negative. Past Medical History Past Medical History: Cancer, Dementia, GERD/Reflux, Hyperlipidemia, Memory Impairment, Osteoarthritis (OA) Additional Past Medical History / Comment(s): 1999 Prostate cancer with prostatectomy, occasional low back pain with bilateral lower leg numbness but much improved since back surgery, hyperlipidemia in past but taken off RX, bilateral pedal edema past 1-2 years History of Any Multi-Drug Resistant Organisms: None Reported Past Surgical History: Back Surgery, Joint Replacement, Prostate Surgery Additional Past Surgical History / Comment(s): Prostatectomy, low back surgery, 2 cervical fusions, total L hip arthroplasty, ESS, colonoscopy. Past Anesthesia/Blood Transfusion Reactions: No Reported Reaction Past Psychological History: No Psychological Hx Reported Additional Psychological History / Comment(s): Pt resides with his spouse of 56 yrs. He uses a cane occasionally. He is independent. Smoking Status: Former smoker Past Alcohol Use History: Occasional Additional Past Alcohol Use History / Comment(s): Pt started smoking in 7 and quit in 1984. Past Drug Use History: None Reported - Past Family History Mother Additional Family Medical History / Comment(s): heart problems age 90 Father Family Medical History: Cancer Additional Family Medical History / Comment(s): Father at the age of 68 yrswith metatstatic cancer unknown primary. Brother(s) Additional Family Medical History / Comment(s): prostate CA Sister(s) Family Medical History: Cancer Additional Family Medical History / Comment(s): 3 sisters with CA Medications and Allergies Home Medications Medication Instructions Recorded Confirmed Type Donepezil [Aricept] 10 mg PO HS 04/25/18 03/12/19 History Aspirin EC [Ecotrin Low Dose] 81 mg PO DAILY 03/12/19 03/12/19 History Lipase/Protease/Amylase [Sophia Hollingsworth 72,000 units PO TID BETWEEN MEALS 03/12/19 03/12/19 History 36,000 Units Capsule] Lipase/Protease/Amylase [Sophia Hollingsworth 108,000 units PO TID 03/12/19 03/12/19 History 36,000 Units Capsule] Allergies Allergy/AdvReac Type Severity Reaction Status Date / Time No Known Allergies Allergy Verified 03/12/19 15:19 Physical Exam Vitals: Vital Signs Temp Pulse Pulse Resp BP BP Pulse Ox 03/14/19 12:00 89 109/69 03/14/19 11:45 92 105/66 03/14/19 11:30 92 115/71 03/14/19 11:15 88 105/68 03/14/19 11:00 95 112/71 03/14/19 10:45 122 H 120/69 03/14/19 10:30 98 105/67 03/14/19 10:15 104 H 115/77 03/14/19 10:00 109 H 16 109/68 99 03/14/19 09:53 105 H 12 101/65 100 03/14/19 08:00 80 13 03/14/19 07:00 98 F 80 13 121/73 97 03/14/19 01:03 98.3 F 73 18 118/69 99 03/13/19 23:24 97 F L 85 20 135/77 100 03/13/19 17:16 98.6 F 74 16 118/69 100 03/13/19 14:38 98.4 F 80 18 108/66 100 03/13/19 14:07 98.4 F 85 16 109/61 100 03/13/19 13:37 98.2 F 78 16 103/57 100 03/13/19 13:27 98.5 F 71 16 102/52 97 03/13/19 12:43 98 F 78 13 121/73 97 Intake and Output 03/13/19 03/14/19 03/14/19 22:59 06:59 14:59 Intake Total 750 700 Output Total 250 Balance 750 -250 700 Intake: IV 700 Oral 440 Blood Product 310 Rc As-1 Unit 310 [id number] Output: Urine 250 Other: Voiding Method Urinal Urinal Urinal # Voids 1 # Bowel Movements 1 5 PHYSICAL EXAMINATION: GENERAL: The patient is alert and oriented x3, not in any acute distress. Well developed, well nourished. HEENT: Pupils are round and equally reacting to light. EOMI. No scleral icterus. does have conjunctival pallor. Normocephalic, atraumatic. No pharyngeal erythema. No thyromegaly. CARDIOVASCULAR: S1 and S2 present. No murmurs, rubs, or gallops. PULMONARY: Chest is clear to auscultation, no wheezing or crackles. ABDOMEN: Soft, nontender, nondistended, normoactive bowel sounds. No palpable organomegaly. MUSCULOSKELETAL: No joint swelling or deformity. EXTREMITIES: No cyanosis, clubbing, or pedal edema. NEUROLOGICAL: Gross neurological examination did not reveal any focal deficits. SKIN: No rashes. Results CBC & Chem 7: 03/14/19 11:44 03/12/19 15:09 Labs: Abnormal Lab Results - Last 24 Hours (Table) 03/12/19 03/14/19 Range/Units 14:39 11:44 RBC 3.03 L (4.30-5.90) m/uL Hgb 9.2 L D (13.0-17.5) gm/dL Hct 28.2 L (39.0-53.0) % Crossmatch See Detail Thrombosis Risk Factor Assmnt - Choose All That Apply Any of the Below Risk Factors Present?: No Other Risk Factors: No Other congenital or acquired thrombophilia - If yes, enter type in comment: No Thrombosis Risk Factor Assessment Level: Very Low Risk Assessment and Plan Plan: -acute blood loss anemia from a lower GI bleed secondary to a bleeding polyp which was cauterized will monitor patient and will be transfused if needed for above-mentioned reasons.\ -lightheadedness secondary to hypovolemia from GI bleed patient will be continued on IV fluids. -pancreatic cancer status post Whipple's procedure and patient will be resumed her previous supplementation. -hyperlipidemia -Patient will need GI prophylaxis, DVT prophylaxis early ambulation
[2019-03-14] MEDS ORDERED: CREON 36000 UNIT PO SCH (15:00)
[2019-03-14] MEDS: CREON 36000 UNIT PO SCH (18:19)
[2019-03-14] MEDS: DONEPEZIL 10 MG TAB PO SCH (20:48)
[2019-03-15] MEDS: SODIUM CHLORIDE 0.9% 1,000 ML IV SCH ×5 (00:08→17:30)
[2019-03-15] MEDS ORDERED: SODIUM CHLORIDE 0.9% 1,000 ML IV ONE (09:28)
[2019-03-15 09:52] LABS: Basophils % (A) 0 %; Eosinophils # (A) 0.2 k/uL (0-0.7); Eosinophils % (A) 2 %; Lymphocytes # (A) 0.8 k/uL (1.0-4.8); Lymphocytes % (A) 11 %; MCH 31.6 pg (25.0-35.0); MCHC 33.4 g/dL (31.0-37.0); MCV 94.6 fL (80.0-100.0); Mean Platelet Volume 7.6; Monocytes # (A) 0.3 k/uL (0-1.0); Monocytes % (A) 5 %; Neutrophils # (A) 5.9 k/uL (1.3-7.7); Neutrophils % (A) 81 %; Platelet Count 208 k/uL (150-450); RBC 2.01 m/uL (4.30-5.90); RDW 13.6 % (11.5-15.5); WBC 7.2 k/uL (3.8-10.6)
[2019-03-15] MEDS: CREON 36000 UNIT PO SCH ×3 (09:55→17:26)
[2019-03-15 10:08] LABS: HGB 6.3 gm/dL (13.0-17.5)
--- NOTE | 2019-03-15 10:42 | P.PN ---
Subjective 78-year-old present gentleman with history of Edu cancer came in with a GI bleed appears to be bleeding polyp which was a cauterize it. Patient had 1 dark stool today because of which I cannot rule out upper GI bleed patient was started on Protonix. Patient hemoglobin dropped again patient will require 2 units of blood transfusion patient had couple episodes which are bloody because of which his hemoglobin dropped patient had 1 dark stool today. Patient had a syncopal episode patient is fatigued at this time and the patient received 1 L o f her bolus of IV fluids that may be something more agitation effect as well and patient is on 100 mL of normal saline. Discussed with gastroenterology Constitutional: patient is fatigued Cardio vascular: denied any chest pain, palpitations Gastrointestinal denied any nausea vomiting Pulmonary: Denied any shortness of breath cough Neurologic denied any new focal deficits All inpatient medications were reviewed and appropriate changes in these medications as dictated in the interval history and assessment and plan. Objective - Vital Signs Vital signs: Vital Signs Temp 97.5 F L 03/15/19 00:54 Pulse 74 03/15/19 09:58 Resp 18 03/15/19 07:54 BP 95/61 03/15/19 09:58 Pulse Ox 99 03/15/19 07:54 Intake & Output 03/14/19 03/15/19 03/15/19 18:59 06:59 18:59 Intake Total 700 1000 Balance 700 1000 Intake: IV 700 Intake, IV Titration 1000 Amount Sodium Chloride 0.9% 1, 1000 000 ml @ 100 mls/hr IV . Q10H [facility] Rx#:[id number] Other: Voiding Method Urinal Toilet # Voids 3 3 - Exam PHYSICAL EXAMINATION: GENERAL: The patient is alert and oriented x3, not in any acute distress. Well developed, well nourished. HEENT: Pupils are round and equally reacting to light. EOMI. No scleral icterus. does have conjunctival pallor. Normocephalic, atraumatic. No pharyngeal erythema. No thyromegaly. CARDIOVASCULAR: S1 and S2 present. No murmurs, rubs, or gallops. PULMONARY: Chest is clear to auscultation, no wheezing or crackles. ABDOMEN: Soft, nontender, nondistended, normoactive bowel sounds. No palpable organomegaly. MUSCULOSKELETAL: No joint swelling or deformity. EXTREMITIES: No cyanosis, clubbing, or pedal edema. NEUROLOGICAL: Gross neurological examination did not reveal any focal deficits. SKIN: No rashes. - Labs CBC & Chem 7: 03/15/19 09:37 03/12/19 15:09 Labs: Abnormal Lab Results - Last 24 Hours (Table) 03/12/19 03/14/19 03/15/19 Range/Units 14:39 11:44 09:37 RBC 3.03 L 2.01 L (4.30-5.90) m/uL Hgb 9.2 L D 6.3 L* D (13.0-17.5) gm/dL Hct 28.2 L 19.0 L* (39.0-53.0) % Lymphocytes # 0.8 L (1.0-4.8) k/uL Crossmatch See Detail Assessment and Plan Plan: -acute blood loss anemia from a lower GI bleed secondary to a bleeding polyp which was cauterized , patient will be transfused couple more units of blood because of syncope hypotension and low hemoglobin.will be started on proton pump inhibitor -lightheadedness secondary to hypovolemia from GI bleed patient will be continued on IV fluids2 units of blood transfusion -pancreatic cancer status post Whipple's procedure and patient will be resumed her previous supplementation. -hyperlipidemia -Patient will need GI prophylaxis, DVT prophylaxis early ambulation
--- NOTE | 2019-03-15 13:11 | PN ---
PROGRESS NOTE DATE OF SERVICE: 03/15/2019 REQUESTING PHYSICIAN: Dr. Rollins The patient is a 78-year-old pleasant white male admitted to the hospital with acute GI bleed. He underwent an upper endoscopy as well as colonoscopy yesterday that revealed some gastritis, prior history of Whipple surgery and evidence of left-sided diverticulosis, which was probably the source of bleeding. There was no active bleeding noted at the time of examination. He is doing better. He had no further episodes of bleeding. He said that he had 1 maroon-colored stools following the colonoscopy yesterday but none today. He reports no abdominal pain. No nausea, vomiting. PHYSICAL EXAMINATION: Appears comfortable, no apparent distress. Vital signs are stable. Blood pressure is 70/43, pulse rate 144. HEENT examination unremarkable. Conjunctivae pink, sclerae anicteric. Oral cavity, no lesions. NECK: No JVD or lymph node enlargement. CHEST: Clear to auscultation. HEART: Regular rate and rhythm. ABDOMEN: Soft. Bowel sounds are positive. No organomegaly. EXTREMITIES: No pedal edema. SKIN: No rashes. NEURO: He is alert and oriented x3. No focal deficits. LABS: Done today, WBC 7.2, hemoglobin 6.3, platelets are normal. IMPRESSION: 1. Acute gastrointestinal bleed, possibly diverticular in nature. Hemoglobin dropped to 6.3 g/dL. So far he received 1 unit of blood transfusion 2 days ago. He is receiving 2 more units today. He had an EGD and colonoscopy yesterday that showed left-sided diverticulosis, which appears to be the source of bleeding but no active bleeding since the colonoscopy. 2. Hypertension and tachycardia secondary to volume depletion/gastrointestinal bleed. RECOMMENDATION: 1. We will transfuse him with 2 units of blood. 2. CBC every 6 hours. 3. Keep him on a full liquid diet. 4. We will follow him closely during his hospital stay. MMODL / IJN: [id number] /
--- NOTE | 2019-03-15 21:17 | US ---
EXAMINATION TYPE: US venous doppler duplex UE LT DATE OF EXAM: 03/15/2019 COMPARISON: NONE CLINICAL HISTORY: swollen elbow. Patient denies prior DVT; Blood pressures were performed on patient' s left arm and swelling anterior left forearm was noted at 1700. SIDE PERFORMED: left Left Arm: Negative for DVT. Very small, and thick walled superficial veins noted in mid and distal fo rearm. Distal left Cephalic Vein does not compress distally suggesting SVT distally. Edema channels are noted anterior left forearm at patient's swelling. Grayscale, color doppler, spectral doppler imaging performed of the deep veins of the left upper extr emity. There is normal flow, compressibility and vascular waveforms. IMPRESSION: Significant subcutaneous edema seen left forearm level. No ultrasound evidence for acute DVT. Suggestion of acute thrombus involving the superficial left cephalic vein towards end of study.
--- NOTE | 2019-03-15 21:23 | XR ---
EXAMINATION TYPE: XR elbow complete LT DATE OF EXAM: 03/15/2019 CLINICAL HISTORY: Pain and swelling. TECHNIQUE: Frontal, lateral and oblique images of the left elbow are obtained. COMPARISON: None FINDINGS: Osseous structures are demineralized. Nonspecific periosteal reaction along the radial asp ect of distal humeral diaphysis. There is no acute fracture/dislocation evident in the left elbow. N o abnormal fat pad signs are seen. Mild to moderate diffuse subcutaneous edema is seen. There is nons pecific focus of air adjacent the radial head on oblique image, cannot exclude soft tissue infection or focal abscess. Correlate clinically. IMPRESSION: As above.
[2019-03-15] MEDS: DONEPEZIL 10 MG TAB PO SCH (23:09)
[2019-03-15] MEDS: PANTOPRAZOLE 40 MG/10 ML VIAL IVP SCH (23:09)
[2019-03-16] MEDS: SODIUM CHLORIDE 0.9% 1,000 ML IV SCH ×4 (06:06→15:11)
[2019-03-16 07:31] LABS: African American GFR (CKD) >90 (>60 ml/min/1.73 sqM); Anion Gap 5 mmol/L; Blood Urea Nitrogen 25 mg/dL (9-20); Carbon Dioxide 21 mmol/L (22-30); Chloride 110 mmol/L (98-107); Glucose 90 mg/dL (74-99); Potassium 4.2 mmol/L (3.5-5.1); Sodium 136 mmol/L (137-145)
[2019-03-16 07:34] LABS: Anisocytosis Slight; Basophils % (A) 0 %; Eosinophils # (A) 0.2 k/uL (0-0.7); Eosinophils % (A) 2 %; Lymphocytes # (A) 1.8 k/uL (1.0-4.8); Lymphocytes % (A) 17 %; MCHC 33.7 g/dL (31.0-37.0); MCV 88.9 fL (80.0-100.0); Mean Platelet Volume 7.9; Monocytes # (A) 0.5 k/uL (0-1.0); Monocytes % (A) 5 %; Neutrophils % (A) 76 %; Platelet Count 216 k/uL (150-450); RBC 3.07 m/uL (4.30-5.90); RDW 16.8 % (11.5-15.5); WBC 10.6 k/uL (3.8-10.6)
[2019-03-16 07:37] LABS: HGB 9.2 gm/dL (13.0-17.5)
[2019-03-16 07:38] LABS: HCT 27.3 % (39.0-53.0)
--- NOTE | 2019-03-16 07:43 | P.CNOR ---
History of Present Illness - HPI Consult date: 03/16/19 History of present illness: This is a 78-year-old male who is admitted for anemia and GI bleed. Orthopedics is consulted due to left elbow pain. Patient states that the left elbow was swollen yesterday. Patient denies any known injury or cause of swelling. Patient states that the swelling has completely resolved today and he denies any pain in the left elbow. Patient denies any fever/chills, numbness, weakness, ti ngling, shortness of breath or chest pain. Review of Systems See HPI. Past Medical History Past Medical History: Cancer, Dementia, GERD/Reflux, Hyperlipidemia, Memory Impairment, Osteoarthritis (OA) Additional Past Medical History / Comment(s): 1999 Prostate cancer with prostatectomy, occasional low back pain with bilateral lower leg numbness but much improved since back surgery, hyperlipidemia in past but taken off RX, bilateral pedal edema past 1-2 years History of Any Multi-Drug Resistant Organisms: None Reported Past Surgical History: Back Surgery, Joint Replacement, Prostate Surgery Additional Past Surgical History / Comment(s): Prostatectomy, low back surgery, 2 cervical fusions, total L hip arthroplasty, ESS, colonoscopy. Past Anesthesia/Blood Transfusion Reactions: No Reported Reaction Past Psychological History: No Psychological Hx Reported Additional Psychological History / Comment(s): Pt resides with his spouse of 56 yrs. He uses a cane occasionally. He is independent. Smoking Status: Former smoker Past Alcohol Use History: Occasional Additional Past Alcohol Use History / Comment(s): Pt started smoking in 1954 and quit in 1984. Past Drug Use History: None Reported - Past Family History Mother Additional Family Medical History / Comment(s): heart problems age 90 Father Family Medical History: Cancer Additional Family Medical History / Comment(s): Father at the age of 68 yrswith metatstatic cancer unknown primary. Brother(s) Additional Family Medical History / Comment(s): prostate CA Sister(s) Family Medical History: Cancer Additional Family Medical History / Comment(s): 3 sisters with CA Medications and Allergies Home Medications Medication Instructions Recorded Confirmed Type Donepezil [Aricept] 10 mg PO HS 04/25/18 03/12/19 History Aspirin EC [Ecotrin Low Dose] 81 mg PO DAILY 03/12/19 03/12/19 History Lipase/Protease/Amylase [Sophia Hollingsworth 72,000 units PO TID BETWEEN MEALS 03/12/19 03/12/19 History 36,000 Units Capsule] Lipase/Protease/Amylase [Sophia Hollingsworth 108,000 units PO TID 03/12/19 03/12/19 History 36,000 Units Capsule] Allergies Allergy/AdvReac Type Severity Reaction Status Date / Time No Known Allergies Allergy Verified 03/12/19 15:19 Physical Examination On exam patient is resting comfortably in bed in no acute distress. There is no tenderness to palpation over the left elbow. There is no swelling, erythema or ecchymosis. Patient has full flexion, extension, pronation and supination of the left elbow without pain or difficulty. Sensation intact. Skin intact. Radial pulse is 2+. Neurovascular status and circulatory status are intact. Results X-rays of the left elbow are negative for any fracture or dislocation. - Labs Labs: Abnormal Lab Results - Last 24 Hours (Table) 03/12/19 03/15/19 03/15/19 Range/Units 14:39 09:37 21:00 RBC 2.01 L (4.30-5.90) m/uL Hgb 6.3 L* D (13.0-17.5) gm/dL Hct 19.0 L* (39.0-53.0) % Lymphocytes # 0.8 L (1.0-4.8) k/uL Sodium (137-145) mmol/L Chloride (98-107) mmol/L Carbon Dioxide (22-30) mmol/L BUN (9-20) mg/dL Calcium (8.4-10.2) mg/dL Crossmatch See Detail See Detail 03/16/19 Range/Units 06:56 RBC (4.30-5.90) m/uL Hgb (13.0-17.5) gm/dL Hct (39.0-53.0) % Lymphocytes # (1.0-4.8) k/uL Sodium 136 L (137-145) mmol/L Chloride 110 H (98-107) mmol/L Carbon Dioxide 21 L (22-30) mmol/L BUN 25 H (9-20) mg/dL Calcium 7.0 L (8.4-10.2) mg/dL Crossmatch H & H 03/12/19 03/12/19 03/13/19 Range/Units 15:09 20:52 07:17 Hgb 8.4 L 8.3 L 6.9 L* (13.0-17.5) gm/dL Hct 25.7 L 25.6 L 20.7 L (39.0-53.0) % 03/14/19 03/15/19 Range/Units 11:44 09:37 Hgb 9.2 L D 6.3 L* D (13.0-17.5) gm/dL Hct 28.2 L 19.0 L* (39.0-53.0) % Coagulation 03/12/19 Range/Units 15:09 INR 1.4 H (<1.2) Result Diagrams: 03/16/19 06:56 03/16/19 06:56 Assessment and Plan (1) Pain and swelling of left elbow Current Visit: Yes Status: Acute Code(s): M25.522 - PAIN IN LEFT ELBOW; M25.422 - EFFUSION, LEFT ELBOW SNOMED Code(s): 42321277 (2) Anemia Current Visit: Yes Status: Acute Code(s): D64.9 - ANEMIA, UNSPECIFIED SNOMED Code(s): 775673512 (3) GI bleed Current Visit: Yes Status: Acute Code(s): K92.2 - GASTROINTESTINAL HEMORRHAGE, UNSPECIFIED SNOMED Code(s): 03439555 Plan: 1. X-rays and exam of the left elbow are within normal limits. Patient states that his symptoms have completely resolved. 2. Patient may advance activities as tolerated with the left upper extremity. 3. No surgical intervention planned. Patient may follow up as an outpatient as needed.
[2019-03-16] MEDS: PANTOPRAZOLE 40 MG/10 ML VIAL IVP SCH ×2 (09:52→20:45)
[2019-03-16] MEDS: CREON 36000 UNIT PO PRN (09:52)
[2019-03-16] MEDS: CREON 36000 UNIT PO SCH ×3 (10:07→17:49)
--- NOTE | 2019-03-16 14:21 | P.PN ---
Subjective Progress Note Date: 03/16/19 Principal diagnosis: GI bleed. Onc for pancreatic adenocarcinoma, s/p WHIPPLE procedure-high risk path, need for adjuvant chemo In f/u today pt denies hematmesis, coffee ground emesis, epigastric pain, abd pain, bloating, hematuria, no BM today to comment on color Objective - Vital Signs Vital signs: Vital Signs Temp 98.2 F 03/16/19 12:49 Pulse 88 03/16/19 12:49 Resp 16 03/16/19 12:49 BP 119/61 03/16/19 12:49 Pulse Ox 98 03/16/19 12:49 Intake & Output 03/15/19 03/16/19 03/16/19 18:59 06:59 18:59 Intake Total 420 620 Output Total 375 Balance 420 245 Intake: Oral 420 Blood Product 0 620 Rc As-1 Unit 310 [id number] Rc As-1 Unit 0 310 [id number] Output: Urine 375 Other: Voiding Method Urinal Urinal # Voids 1 # Bowel Movements 1 - Constitutional General appearance: Present: cooperative, no acute distress, thin - EENT Eyes: Present: anicteric sclerae, EOMI ENT: Present: hearing grossly normal - Respiratory Respiratory: bilateral: CTA - Cardiovascular Heart sounds: normal: S1, S2 - Peripheral edema leg Peripheral Edema: bilateral: None - Gastrointestinal General gastrointestinal: Present: normal bowel sounds, soft - Neurologic Neurologic: Present: CNII-XII intact - Musculoskeletal Musculoskeletal: Present: generalized weakness, strength equal bilaterally - Psychiatric Psychiatric: Present: A&O x's 3, appropriate affect, intact judgment & insight - Labs CBC & Chem 7: 03/16/19 06:56 03/16/19 06:56 Labs: Abnormal Lab Results - Last 24 Hours (Table) 03/12/19 03/15/19 03/16/19 Range/Units 14:39 21:00 06:56 RBC 3.07 L (4.30-5.90) m/uL Hgb 9.2 L D (13.0-17.5) gm/dL Hct 27.3 L (39.0-53.0) % RDW 16.8 H (11.5-15.5) % Neutrophils # 8.0 H (1.3-7.7) k/uL Sodium (137-145) mmol/L Chloride (98-107) mmol/L Carbon Dioxide (22-30) mmol/L BUN (9-20) mg/dL Calcium (8.4-10.2) mg/dL Crossmatch See Detail See Detail 03/16/19 Range/Units 06:56 RBC (4.30-5.90) m/uL Hgb (13.0-17.5) gm/dL Hct (39.0-53.0) % RDW (11.5-15.5) % Neutrophils # (1.3-7.7) k/uL Sodium 136 L (137-145) mmol/L Chloride 110 H (98-107) mmol/L Carbon Dioxide 21 L (22-30) mmol/L BUN 25 H (9-20) mg/dL Calcium 7.0 L (8.4-10.2) mg/dL Crossmatch Assessment and Plan (1) GI bleed Narrative/Plan: S/P EGD/colon with Dr. Melendez, snared polyp and left colon suspicious as site of bleed-nothing active. Defer mgmt of the same. Current Visit: Yes Status: Acute Priority: High Code(s): K92.2 - GASTROINTESTINAL HEMORRHAGE, UNSPECIFIED SNOMED Code(s): 46350973 (2) Pancreatic cancer Narrative/Plan: S/P WHIPPLE procedure. Pathological findings place him in high risk for recurrence and adj chemo has been recommended. Pt will keep sched f/u with Dr. Obrien to discuss further. Current Visit: Yes Status: Acute Priority: High Code(s): C25.9 - MALIGNANT NEOPLASM OF PANCREAS, UNSPECIFIED SNOMED Code(s): 182390102 (3) Anemia Narrative/Plan: Secondary to acute GI bleed. Transfuse for Hgb <7 or if symptomatic. Work up will be ordered. Current Visit: Yes Status: Acute Priority: Medium Code(s): D64.9 - ANEMIA, UNSPECIFIED SNOMED Code(s): 844350729
--- NOTE | 2019-03-16 18:28 | P.PN ---
Subjective Progress Note Date: 03/16/19 78-year-old present gentleman with history of Edu cancer came in with a GI bleed appears to be bleeding polyp which was a cauterize it. Patient had 1 dark stool today because of which I cannot rule out upper GI bleed patient was started on Protonix. Patient hemoglobin dropped again patient will require 2 units of blood transfusion patient had couple episodes which are bloody because of which his hemoglobin dropped patient had 1 dark stool today. Patient had a syncopal episode patient is fatigued at this time and the patient received 1 L of her bolus of IV fluids that may be something more agitation effect as well and patient is on 100 mL of normal saline. Discussed with gastroenterology Constitutional: patient is fatigued Cardio vascular: denied any chest pain, palpitations Gastrointestinal denied any nausea vomiting Pulmonary: Denied any shortness of breath cough Neurologic denied any new focal deficits All inpatient medications were reviewed and appropriate changes in these medications as dictated in the interval history and assessment and plan. 03/16/2019 hemoglobin 9.2 status post transfusion of 2 units packed RBCs. Status post EGD and colonoscopy reporting left-sided diverticulosis. Serial CBCs in place. No further bleeding reported. No abdominal pain. No bowel movement. Tolerating full liquids with no nausea vomiting or diarrhea. Left elbow x-ray reporting no fractures, evaluated by orthopedics with no surgical intervention recommended at this time. Doppler of left arm reporting significant subcutaneous edema in the left forearm, no acute DVT, possible acute thrombosis of the superficial left cephalic vein. Objective - Vital Signs Vital signs: Vital Signs Temp 98.2 F 03/16/19 12:49 Pulse 88 03/16/19 12:49 Resp 16 03/16/19 12:49 BP 119/61 03/16/19 12:49 Pulse Ox 98 03/16/19 12:49 Intake & Output 03/15/19 03/16/19 03/16/19 18:59 06:59 18:59 Intake Total 420 620 800 Output Total 375 Balance 420 245 800 Intake: Intake, IV Titration 800 Amount Sodium Chloride 0.9% 1, 800 000 ml @ 100 mls/hr IV . Q10H [facility] Rx#:[id number] Oral 420 Blood Product 0 620 Rc As-1 Unit 310 [id number] Rc As-1 Unit 0 310 [id number] Output: Urine 375 Other: Voiding Method Urinal Urinal # Voids 1 3 # Bowel Movements 1 - Exam GENERAL: The patient is alert and oriented x3, not in any acute distress. Well developed, well nourished. HEENT: Pupils are round and equally reacting to light. EOMI. No scleral icterus. does have conjunctival pallor. Normocephalic, atraumatic. No pharyngeal erythema. No thyromegaly. CARDIOVASCULAR: S1 and S2 present. No murmurs, rubs, or gallops. PULMONARY: Chest is clear to auscultation, no wheezing or crackles. ABDOMEN: Soft, nontender, nondistended, normoactive bowel sounds. No palpable organomegaly. MUSCULOSKELETAL: No joint swelling or deformity. EXTREMITIES: No cyanosis, clubbing, or pedal edema. NEUROLOGICAL: Gross neurological examination did not reveal any focal deficits. SKIN: No rashes. - Labs CBC & Chem 7: 03/16/19 06:56 03/16/19 06:56 Labs: Abnormal Lab Results - Last 24 Hours (Table) 03/12/19 03/15/19 03/16/19 Range/Units 14:39 21:00 06:56 RBC 3.07 L (4.30-5.90) m/uL Hgb 9.2 L D (13.0-17.5) gm/dL Hct 27.3 L (39.0-53.0) % RDW 16.8 H (11.5-15.5) % Neutrophils # 8.0 H (1.3-7.7) k/uL Sodium (137-145) mmol/L Chloride (98-107) mmol/L Carbon Dioxide (22-30) mmol/L BUN (9-20) mg/dL Calcium (8.4-10.2) mg/dL Crossmatch See Detail See Detail 03/16/19 Range/Units 06:56 RBC (4.30-5.90) m/uL Hgb (13.0-17.5) gm/dL Hct (39.0-53.0) % RDW (11.5-15.5) % Neutrophils # (1.3-7.7) k/uL Sodium 136 L (137-145) mmol/L Chloride 110 H (98-107) mmol/L Carbon Dioxide 21 L (22-30) mmol/L BUN 25 H (9-20) mg/dL Calcium 7.0 L (8.4-10.2) mg/dL Crossmatch Assessment and Plan Assessment: -Acute blood loss anemia secondary to left-sided diverticulosis, bleeding polyp that was cauterized. Status post transfusion of packed RBCs -Symptomatic hypotension secondary to the above, improved -Lightheadedness secondary to hypovolemia secondary to GI bleed, improved -History of pancreatic adenocarcinoma , status post Whipple's procedure -Hyperlipidemia -possible acute thrombosis of the superficial left cephalic vein Plan: Continue on current medication regime ,monitoring and symptomatic treatment. PPI. Maintain full liquid diet, serial CBCs. Diet advancement as per GI PT/OT, potential subacute rehab. Prognosis guarded given multiple complex medical issues. The impression and plan of care has been dictated as directed. : I performed a history and examination of this patient, discussed the same with the dictator. I agree with the dictator's note ,documented as a scribe. Any additional findings or plans will be noted.
[2019-03-16] MEDS ORDERED: ASPIRIN 325 MG TAB PO SCH (19:00)
[2019-03-16 19:26] LABS: Ferritin 207.5 ng/mL (22.0-322.0)
[2019-03-16 19:27] LABS: Iron Saturation 62.35 (15.00-50.00)
--- NOTE | 2019-03-16 20:14 | PN ---
PROGRESS NOTE DATE OF DICTATION: 03/16/2019 Patient is a 78-year-old pleasant white male admitted to the hospital with acute lower GI bleed. He underwent an upper endoscopy as well as colonoscopy by me 3 days ago and was noted to have left-sided diverticulosis, which appeared to be the source of bleeding, but there was no active bleeding at the time of examination. Following the procedure, the next day the patient had 2 episodes of maroon-colored stools. He dropped his hemoglobin to 6.9, requiring 2 more units of blood transfusion. Since this morning, he did not have any further episodes of bleeding. The patient has mild dementia, and most of the history was obtained from the nurse caring for him. He reports no abdominal pain. No nausea, vomiting. PHYSICAL EXAMINATION: He appears comfortable, in no apparent distress. VITAL SIGNS: Stable. Blood pressure is 119/61, pulse rate 88, temperature 98.2. HEENT examination unremarkable. Conjunctivae pink, sclerae anicteric. Oral cavity no lesions. NECK: No JVD or lymph node enlargement. CHEST: Clear to auscultation. HEART: Regular rate and rhythm. ABDOMEN: Soft. Bowel sounds are positive. No organomegaly. EXTREMITIES: No pedal edema. SKIN: No rashes. NEUROLOGIC: Alert and oriented no focal deficits. LABS: LABS DONE TODAY: Hemoglobin is 9.2, WBC 10.6, platelets are normal. Basic metabolic panel is within normal limits. IMPRESSION: 1. Acute lower gastrointestinal bleed, possibly diverticular in nature. EGD and colonoscopy 3 days ago showed left-sided diverticulosis with some fresh blood in that area. The patient dropped his hemoglobin to 6.3 yesterday, received 2 more units of blood, making a total of 4 units of blood transfusion since hospitalization. No further bleeding for the last 24 hours. 2. Mild dementia. 3. History of Whipple surgery 2 months ago for pancreatic cancer. RECOMMENDATIONS: 1. Continue with a full liquid diet today. 2. CBC in the morning. 3. If the hemoglobin is stable, the diet can be advanced as tolerated. Thank you for this consultation. MMODL / IJN: [id number] /
[2019-03-16] MEDS: DONEPEZIL 10 MG TAB PO SCH (20:45)
[2019-03-17] MEDS: SODIUM CHLORIDE 0.9% 1,000 ML IV SCH ×6 (00:27→18:01)
[2019-03-17 07:38] LABS: HCT 23.3 % (39.0-53.0); HGB 8.1 gm/dL (13.0-17.5); MCH 30.9 pg (25.0-35.0); MCHC 34.6 g/dL (31.0-37.0); MCV 89.2 fL (80.0-100.0); Mean Platelet Volume 7.1; Platelet Count 181 k/uL (150-450); RBC 2.62 m/uL (4.30-5.90); RDW 15.8 % (11.5-15.5)
[2019-03-17] MEDS: CREON 36000 UNIT PO SCH ×3 (08:02→18:01)
[2019-03-17] MEDS: PANTOPRAZOLE 40 MG/10 ML VIAL IVP SCH ×2 (08:02→20:06)
[2019-03-17] MEDS: CYANOCOBALAMIN 1,000 MCG/ML 1 ML VIAL IM SCH (12:22)
--- NOTE | 2019-03-17 14:39 | P.PN ---
Subjective Progress Note Date: 03/17/19 Principal diagnosis: GI bleed. Onc for pancreatic adenocarcinoma, s/p WHIPPLE procedure-high risk path, need for adjuvant chemo In follow-up today patient denies any acute complaints, he currently feels as though he could have a bowel movement, he denies any bleeding, fever, nausea, difficulty in breathing. He is moderately weak. His appetite is fair to poor. He denies any pain Objective - Vital Signs Vital signs: Vital Signs Temp 98 F 03/17/19 10:13 Pulse 89 03/17/19 05:00 Resp 18 03/17/19 10:13 BP 116/60 03/17/19 10:13 Pulse Ox 96 03/17/19 10:13 Intake & Output 03/16/19 03/17/19 03/17/19 18:59 06:59 18:59 Intake Total 800 1920 Output Total 850 Balance 800 1070 Intake: Intake, IV Titration 800 1200 Amount Sodium Chloride 0.9% 1, 800 000 ml @ 100 mls/hr IV . Q10H A[facility] Rx#:[id number] Sodium Chloride 0.9% 1, 800 400 000 ml @ 100 mls/hr IV . Q10H A[facility] Rx#:[id number] Oral 720 Output: Urine 850 Other: Voiding Method Urinal Urinal # Voids 3 # Bowel Movements 0 - Exam Well-developed, thin built, pale but, color is better than yesterday, normocephalic, atraumatic, anicteric sclera, no acute distress, alert and orie nted 4, oral mucosa is free of thrush or lesions, respirations are even and unlabored, no swelling, skin is warm and dry to the touch, patient is able to move all 4 extremities independently, generalized weakness is apparent, no gross foacal or motor neuro deficit - Labs CBC & Chem 7: 03/17/19 07:13 03/16/19 06:56 Labs: Abnormal Lab Results - Last 24 Hours (Table) 03/12/19 03/16/19 03/17/19 Range/Units 14:39 06:56 07:13 RBC 2.62 L (4.30-5.90) m/uL Hgb 8.1 L (13.0-17.5) gm/dL Hct 23.3 L (39.0-53.0) % RDW 15.8 H (11.5-15.5) % TIBC 170 L (228-460) ug/dL Iron Saturation 62.35 H (15.00-50.00) Vitamin B12 193.0 L (200.0-944.0) pg/mL Crossmatch See Detail Assessment and Plan (1) GI bleed Narrative/Plan: S/P EGD/colon with Dr. Melendez, snared polyp and left colon suspicious as site of bleed-nothing active. Defer mgmt of the same. With recent gastrointestinal bleeding antiplatelet therapy for superficial thrombosis of the left upper extremity is going to be at high risk. Recommendation and orders for warm compresses only. Current Visit: Yes Status: Acute Priority: High Code(s): K92.2 - GASTROINTESTINAL HEMORRHAGE, UNSPECIFIED SNOMED Code(s): 62843021 (2) Pancreatic cancer Narrative/Plan: S/P WHIPPLE procedure. Pathological findings place him in high risk for recurrence and adj chemo is recommended. Patient is due for surgical follow-up with imaging at [facility] in early March. His appointment with Dr. Obrien is on April 07. Based on imaging and recovery from surgery patient is going to be considered for adjuvant chemotherapy. Patient's current situation does not seem to be related to his recent surgery or diagnosis of resected pancreatic cancer. Agree with workup and supportive care at this time. Patient will likely require some rehabilitation. Pending pathology from colonoscopy. Further recommendations to follow Offered patient a Dietitian consultation for dietary changes s/p WHIPPLE, he states that they have one at [facility]. Current Visit: Yes Status: Acute Priority: High Code(s): C25.9 - MALIGNANT NEOPLASM OF PANCREAS, UNSPECIFIED SNOMED Code(s): 152600914 (3) Anemia Narrative/Plan: B12 deficiency, secondary to Whipple procedure and lack of absorption. B12 supplementation has been initiated. 1000 g intramuscularly 3-5 days, weekly 1 month, every other week 1 month then monthly is the recommended schedule. Iron deficiency based on iron studies, did have to take into account transfusion. Due to patient's hypotensive episodes today though, parenteral iron will be deferred until tomorrow examination. Patient may require parenteral iron as an outpatient. Suspect that he will likely have poor absorption of iron as well. Current Visit: Yes Status: Acute Priority: Medium Code(s): D64.9 - ANEMIA, UNSPECIFIED SNOMED Code(s): 145521122
[2019-03-17] MEDS: ONDANSETRON 4 MG/2 ML VIAL IVP PRN (18:00)
--- NOTE | 2019-03-17 18:15 | PN ---
PROGRESS NOTE DATE OF DICTATION: 03/17/2019 Patient is a 78-year-old pleasant white male admitted to the hospital with acute GI bleed. He is status post Whipple surgery [address] [facility] for pancreatic cancer. He underwent an EGD and colonoscopy by me 2 days ago that showed left-sided diverticulosis which was the most likely source of bleeding. He gradually dropped his hemoglobin to 6.2, requiring a total of 3 units of blood transfusion since hospitalization. Today hemoglobin is 8.1 g/dL. He had one bowel movement today with dark old blood noted. He denies any abdominal pain. No nausea, vomiting. PHYSICAL EXAMINATION: He appears comfortable, in no apparent distress. Vital signs are stable. Blood pressure is 119/64, pulse rate 84 and temperature 98. HEENT examination unremarkable. Conjunctivae pink. Sclerae anicteric. Oral cavity no lesions. NECK: No JVD or lymph node enlargement. CHEST: Clear to auscultation. HEART: Regular rate and rhythm. ABDOMEN: Soft. Bowel sounds are positive. No organomegaly. EXTREMITIES: No pedal edema. SKIN: No rashes. NEUROLOGIC: He is alert and oriented x3. No focal deficits. LABS: WBC 9, hemoglobin 8.1, platelets 181. IMPRESSION: 1. Acute gastrointestinal bleed, possibly diverticular in etiology, status post esophagogastroduodenoscopy and colonoscopy 2 day ago, as mentioned above. Bleeding appears to be gradually resolving. 2. History of pancreatic cancer, status post Whipple surgery [address] [facility]. Oncology is following the patient closely. RECOMMENDATIONS: 1. Agree with advancing diet as tolerated. 2. CBC in the morning. 3. If he remains stable, he can be discharged home tomorrow with outpatient followup. Thank you for this consultation. MMODL / IJN: [id number] /
[2019-03-17] MEDS: DONEPEZIL 10 MG TAB PO SCH (20:06)
[2019-03-18 07:35] LABS: Anisocytosis Slight; HCT 22.2 % (39.0-53.0); HGB 7.4 gm/dL (13.0-17.5); MCH 29.7 pg (25.0-35.0); MCHC 33.3 g/dL (31.0-37.0); MCV 89.1 fL (80.0-100.0); Mean Platelet Volume 7.8; Platelet Count 177 k/uL (150-450); RBC 2.49 m/uL (4.30-5.90); RDW 16.6 % (11.5-15.5)
[2019-03-18 07:40] LABS: INR 1.2 (<1.2); Prothrombin Time 12.6 sec (9.0-12.0)
[2019-03-18] MEDS: SODIUM CHLORIDE 0.9% 1,000 ML IV SCH ×3 (07:40→16:16)
[2019-03-18] MEDS: PANTOPRAZOLE 40 MG/10 ML VIAL IVP SCH ×2 (07:43→21:44)
[2019-03-18] MEDS: CYANOCOBALAMIN 1,000 MCG/ML 1 ML VIAL IM SCH (07:44)
[2019-03-18] MEDS: CREON 36000 UNIT PO SCH ×3 (07:44→17:54)
[2019-03-18] MEDS: ONDANSETRON 4 MG/2 ML VIAL IVP PRN (07:59)
[2019-03-18] MEDS: SODIUM FERRIC GLUCONAT-SUCROSE 125 MG in SODIUM CHLORIDE 0.9% 100 ML IVPB SCH (13:34)
--- NOTE | 2019-03-18 14:58 | P.PN ---
<Angelina Nguyen - Last Filed: 03/18/19 14:41> Subjective Progress Note Date: 03/18/19 78-year-old present gentleman with history of [place] cancer came in with a GI bleed appears to be bleeding polyp which was a cauterize it. Patient had 1 dark stool today because of which I cannot rule out upper GI bleed patient was sta rted on Protonix. Patient hemoglobin dropped again patient will require 2 units of blood transfusion patient had couple episodes which are bloody because of which his hemoglobin dropped patient had 1 dark stool today. Patient had a syncopal episode patient is fatigued at this time and the patient received 1 L of her bolus of IV fluids that may be something more agitation effect as well and patient is on 100 mL of normal saline. Discussed with gastroenterology Constitutional: patient is fatigued Cardio vascular: denied any chest pain, palpitations Gastrointestinal denied any nausea vomiting Pulmonary: Denied any shortness of breath cough Neurologic denied any new focal deficits All inpatient medications were reviewed and appropriate changes in these medications as dictated in the interval history and assessment and plan. 03/16/2019 hemoglobin 9.2 status post transfusion of 2 units packed RBCs. Status post EGD and colonoscopy reporting left-sided diverticulosis. Serial CBCs in place. No further bleeding reported. No abdominal pain. No bowel movement. Tolerating full liquids with no nausea vomiting or diarrhea. Left elbow x-ray reporting no fractures, evaluated by orthopedics with no surgical intervention recommended at this time. Doppler of left arm reporting signific ant subcutaneous edema in the left forearm, no acute DVT, possible acute thrombosis of the superficial left cephalic vein. 03/18/2019 nausea improving on Zofran.appetite fair. Receiving B12 injections. Dietary consult in place. maintained on IV fluid hydration.Negative for orthostatic hypotension but when standing up at bedside by physical therapy,Staff reporting unable to obtain patient's blood pressure, became extremely pale; diet adjusted to include unlimited salt. Thigh-high teds. Kyle undy bowel movements 2 yesterday, and this morning, brn. Current hemoglobin 7.4.afebrile, normal WBC.Denies pain. Significantly weak. Evaluated by physical therapy, subacute rehab recommended at discharge. Objective - Vital Signs Vital signs: Vital Signs Temp 97.9 F 03/18/19 13:08 Pulse 84 03/18/19 13:08 Resp 16 03/18/19 13:08 BP 98/61 03/18/19 13:08 Pulse Ox 97 03/18/19 13:08 Intake & Output 03/17/19 03/18/19 03/18/19 18:59 06:59 18:59 Intake Total 1390 Output Total 600 200 Balance -600 1190 Intake: Intake, IV Titration 1150 Amount Sodium Chloride 0.9% 1, 1150 000 ml @ 100 mls/hr IV . Q10H AIDA Rx#:[id number] Oral 240 Output: Urine 600 200 Other: Voiding Method Urinal Urinal # Voids 3 # Bowel Movements 1 - Exam GENERAL: The patient is alert and oriented x3, not in any acute distress. HEENT: Pupils are round and equally reacting to light. EOMI. No scleral icterus. does have conjunctival pallor. Normocephalic, atraumatic. No pharyngeal erythema. No thyromegaly. CARDIOVASCULAR: S1 and S2 present. No murmurs, rubs, or gallops. PULMONARY: Unlabored,Chest is clear to auscultation, no wheezing or crackles. no wheezing ABDOMEN: Soft, nontender, nondistended, normoactive bowel sounds. No palpable organomegaly. MUSCULOSKELETAL: No joint swelling or deformity. EXTREMITIES: No cyanosis, clubbing, or pedal edema. NEUROLOGICAL: cranial nerves II through XII grossly intact, moves all 4 extremities, generalized diffuse weakness, no focal deficits. SKIN: No rashes. - Labs CBC & Chem 7: 03/18/19 07:12 03/16/19 06:56 Labs: Abnormal Lab Results - Last 24 Hours (Table) 03/16/19 03/18/19 03/18/19 Range/Units 06:56 07:12 07:12 RBC 2.49 L (4.30-5.90) m/uL Hgb 7.4 L (13.0-17.5) gm/dL Hct 22.2 L (39.0-53.0) % RDW 16.6 H (11.5-15.5) % PT 12.6 H (9.0-12.0) sec INR 1.2 H (<1.2) RBC Folate 1,215 H (280 - 791) ng/mL Assessment and Plan Assessment: -Acute blood loss anemia secondary to left-sided diverticulosis, bleeding polyp that was cauterized. Status post transfusion of packed RBCs.Anemia secondary to B12 deficiency,related to recent Whipple procedure. -Symptomatic hypotension secondary to the above, improved -Lightheadedness secondary to hypovolemia secondary to GI bleed, improved -History of pancreatic adenocarcinoma , status post recentWhipple's procedure -Hyperlipidemia -possible acute thrombosis of the superficial left cephalic vein,no antiplatelet therapy at this time, warm compresses only recommended as per hematology/oncology secondary to high risk given recent GI bleed. -moderate protein calorie malnutrition, BMI 24.3 Plan: Continue on current medication regime ,monitoring and symptomatic treatment. PPI.Dietary consult in place.Secondary to hypotensive episodes, Parental Iron on hold,unlimited salt intake, sodium tabs ordered,thigh-high teds.Possible cardiac consult pending response to prior interventions.close monitoring of hemoglobin with repeat labs ordered in a.m.colonoscopy pathology pending. Potential subacute rehab. at [facility]. Prognosis guarded given multiple complex medical issues. The impression and plan of care has been dictated as directed. : I performed a history and examination of this patient, discussed the same with the dictator. I agree with the dictator's note ,documented as a scribe. Any additional findings or plans will be noted. <Jasbir Rollins - Last Filed: 03/18/19 22:37> Objective - Vital Signs Vital signs: Vital Signs Temp 97.1 F L 03/18/19 20:07 Pulse 87 03/18/19 20:07 Resp 16 03/18/19 20:07 BP 110/59 03/18/19 20:07 Pulse Ox 95 03/18/19 16:57 Intake & Output 03/18/19 03/18/19 03/19/19 06:59 18:59 06:59 Intake Total 1390 2300 Output Total 200 200 Balance 1190 2100 Weight 72.575 kg Intake: Intake, IV Titration 1150 1100 Amount Sodium Chloride 0.9% 1, 1150 1000 000 ml @ 100 mls/hr IV . Q10H AIDA Rx#:[id number] Sodium Ferric Gluconat- 100 Sucrose 125 mg In Sodium Chloride 0.9% 100 ml @ 100 mls/hr IVPB DAILY AIDA Rx#:[id number] Oral 240 1200 Output: Urine 200 200 Other: Voiding Method Urinal Urinal # Voids 5 - Labs CBC & Chem 7: 03/18/19 07:12 03/16/19 06:56 Labs: Abnormal Lab Results - Last 24 Hours (Table) 03/18/19 03/18/19 Range/Units 07:12 07:12 RBC 2.49 L (4.30-5.90) m/uL Hgb 7.4 L (13.0-17.5) gm/dL Hct 22.2 L (39.0-53.0) % RDW 16.6 H (11.5-15.5) % PT 12.6 H (9.0-12.0) sec INR 1.2 H (<1.2) Assessment and Plan (1) Anemia Current Visit: Yes Status: Acute Priority: Medium Code(s): D64.9 - ANEMIA, UNSPECIFIED SNOMED Code(s): 084901314 (2) GI bleed Current Visit: Yes Status: Acute Priority: High Code(s): K92.2 - GASTROINTESTINAL HEMORRHAGE, UNSPECIFIED SNOMED Code(s): 83955137 (3) Pancreatic cancer Current Visit: Yes Status: Acute Priority: High Code(s): C25.9 - MALIGNANT NEOPLASM OF PANCREAS, UNSPECIFIED SNOMED Code(s): 768120177
--- NOTE | 2019-03-18 16:03 | P.PN ---
Subjective Progress Note Date: 03/18/19 Principal diagnosis: GI bleed. Onc for pancreatic adenocarcinoma, s/p WHIPPLE procedure-high risk path, need for adjuvant chemo In follow-up today staff reports that patient had 2 maroon-colored stools yesterday. Patient states ongoing weakness, dizziness with changing positions, difficulty standing up. Appetite is fair to poor, no difficulty in breathing at rest, patient is short of breath on exertion, denies gross bleeding that he is aware of, no lower extremity swelling, patient is not in any pain. Objective - Vital Signs Vital signs: Vital Signs Temp 97.9 F 03/18/19 13:08 Pulse 86 03/18/19 15:07 Resp 16 03/18/19 15:07 BP 98/61 03/18/19 13:08 Pulse Ox 97 03/18/19 13:08 Intake & Output 03/17/19 03/18/19 03/18/19 18:59 06:59 18:59 Intake Total 1390 2300 Output Total 600 200 200 Balance -600 1190 2100 Weight 72.575 kg Intake: Intake, IV Titration 1150 1100 Amount Sodium Chloride 0.9% 1, 1150 1000 000 ml @ 100 mls/hr IV . Q10H AIDA Rx#:[id number] Sodium Ferric Gluconat- 100 Sucrose 125 mg In Sodium Chloride 0.9% 100 ml @ 100 mls/hr IVPB DAILY AIDA Rx#:[id number] Oral 240 1200 Output: Urine 600 200 200 Other: Voiding Method Urinal Urinal Urinal # Voids 3 5 # Bowel Movements 1 - Constitutional Constitutional Comment(s): Patient has good color while laying in bed. Staff reports inability to obtain of blood pressure on patient from sitting to standing position, near syncopy with changing positions and color draining from his face. General appearance: Present: average body habitus, cooperative, no acute distress - EENT Eyes: Present: anicteric sclerae, EOMI ENT: Present: hearing grossly normal - Respiratory Respiratory: bilateral: CTA - Cardiovascular Heart sounds: normal: S1, S2 - Peripheral edema leg Peripheral Edema: bilateral: None - Gastrointestinal General gastrointestinal: Present: normal bowel sounds, soft - Integumentary Integumentary: Present: normal - Neurologic Neurologic: Present: CNII-XII intact - Musculoskeletal Musculoskeletal: Present: generalized weakness - Psychiatric Psychiatric: Present: A&O x's 3, appropriate affect, intact judgment & insight - Labs CBC & Chem 7: 03/18/19 07:12 03/16/19 06:56 Labs: Abnormal Lab Results - Last 24 Hours (Table) 03/16/19 03/18/19 03/18/19 Range/Units 06:56 07:12 07:12 RBC 2.49 L (4.30-5.90) m/uL Hgb 7.4 L (13.0-17.5) gm/dL Hct 22.2 L (39.0-53.0) % RDW 16.6 H (11.5-15.5) % PT 12.6 H (9.0-12.0) sec INR 1.2 H (<1.2) RBC Folate 1,215 H (280 - 791) ng/mL Assessment and Plan (1) GI bleed Narrative/Plan: S/P EGD/colon with Dr. Melendez, snared polyp and left colon suspicious as site of bleed-nothing active. Defer mgmt of the same. Polyp pathology returned negative for malignancy. With recent gastrointestinal bleeding antiplatelet therapy for superficial thrombosis of the left upper extremity is going to be at high risk. Recommendation and orders for warm compresses only. Current Visit: Yes Status: Acute Priority: High Code(s): K92.2 - GASTROINTESTINAL HEMORRHAGE, UNSPECIFIED SNOMED Code(s): 63332345 (2) Pancreatic cancer Narrative/Plan: S/P WHIPPLE procedure. Pathological findings place him in high risk for recurrence and adj chemo is recommended. Patient is due for surgical follow-up with imaging at [facility] in early March. His appointment with Dr. Obrien is on April 07. Based on imaging and recovery from surgery patient is going to be considered for adjuvant chemotherapy. Patient's current situation does not seem to be related to his recent surgery or diagnosis of resected pancreatic cancer. Agree with workup and supportive care at this time. Patient will likely require some rehabilitation which will be good for his recuperation. Pathology from colonoscopy was negative for malignancy. Current Visit: Yes Status: Acute Priority: High Code(s): C25.9 - MALIGNANT NEOPLASM OF PANCREAS, UNSPECIFIED SNOMED Code(s): 982617787 (3) Anemia Narrative/Plan: Suspect progressive related to acute GI bleeding. With recent Whipple procedure there may be a degree of malabsorption. Iron and B12 deficiency diagnosed, both are being supplemented. CBC in a.m. To evaluate for downward trend Stool is being checked for occult. Current Visit: Yes Status: Acute Priority: Medium Code(s): D64.9 - ANEMIA, UNSPECIFIED SNOMED Code(s): 344007642 Plan: Superficial venous thrombosis of the left upper extremity. Due to recent GI bleeding, antiplatelet therapy cannot be utilized at this time. Treatment with warm compresses. May have to perform another Doppler to evaluate. Near syncope on standing, unable to obtain ortho BP standing. Case was discussed with Internal Medicine [employer]. Additional testing is been ordered, possible Cardiology consult in future.
[2019-03-18] MEDS: SODIUM CHLORIDE TAB 1 GM TAB PO SCH (16:15)
--- NOTE | 2019-03-18 16:25 | PN ---
PROGRESS NOTE DATE OF DICTATION: 03/18/2019 Patient is a 78-year-old pleasant white male admitted to hospital with acute GI bleed. He had an EGD and colonoscopy done 5 days ago. Colonoscopy revealed left-sided diverticulosis which appeared to be the source of bleeding. The patient is doing better. He still is extremely weak and tired. He is somewhat dizzy when he gets up from the bed. He had one dark-colored stool this morning. He reports no abdominal pain. No nausea, vomiting. PHYSICAL EXAMINATION: He appears comfortable. No apparent distress. VITAL SIGNS: Stable. Blood pressure 98/61, pulse rate 84, temperature 97.7. HEENT examination unremarkable. Conjunctivae pink. Sclerae anicteric. Oral cavity no lesions. NECK: No JVD or lymph node enlargement. CHEST: Clear to auscultation. HEART: Regular rate and rhythm. ABDOMEN: Soft. Bowel sounds are positive. No organomegaly. EXTREMITIES: No pedal edema. SKIN: No rashes. NEUROLOGIC: Alert and oriented x3. No focal deficits. LABS: Labs from today show WBC 8.0, hemoglobin 7.4, platelets normal. INR 1.2. IMPRESSION: 1. Acute gastrointestinal bleed, possibly diverticular in etiology, status post EGD and colonoscopy 5 days ago. He still continues to drop his hemoglobin slightly. He received a total of 3 units of blood transfusions since hospitalization. Last hemoglobin 7.4. Clinically no active bleeding. 2. History of pancreatic cancer, status post Whipple surgery 2 months ago at [facility]. RECOMMENDATIONS: 1. Agree with iron infusions. 2. CBC on a daily basis. 3. Advance diet as tolerated. 4. Will follow with you closely during his hospital stay. Thank you for this consultation. MMODL / IJN: [id number] /
[2019-03-18] MEDS: DONEPEZIL 10 MG TAB PO SCH (21:44)
[2019-03-19] MEDS: SODIUM CHLORIDE 0.9% 1,000 ML IV SCH ×3 (01:46→23:20)
[2019-03-19 07:27] LABS: HGB 7.6 gm/dL (13.0-17.5); MCH 30.1 pg (25.0-35.0); MCHC 32.9 g/dL (31.0-37.0); MCV 91.6 fL (80.0-100.0); Mean Platelet Volume 7.4; Platelet Count 225 k/uL (150-450); RBC 2.51 m/uL (4.30-5.90); RDW 15.9 % (11.5-15.5); WBC 6.6 k/uL (3.8-10.6)
[2019-03-19] MEDS: CREON 36000 UNIT PO SCH ×3 (09:10→17:15)
[2019-03-19] MEDS: SODIUM FERRIC GLUCONAT-SUCROSE 125 MG in SODIUM CHLORIDE 0.9% 100 ML IVPB SCH (09:10)
[2019-03-19] MEDS: PANTOPRAZOLE 40 MG/10 ML VIAL IVP SCH ×2 (09:10→21:19)
[2019-03-19] MEDS: CYANOCOBALAMIN 1,000 MCG/ML 1 ML VIAL IM SCH (09:10)
[2019-03-19] MEDS: SODIUM CHLORIDE TAB 1 GM TAB PO SCH (09:10)
--- NOTE | 2019-03-19 09:12 | P.PN ---
Subjective Progress Note Date: 03/19/19 78-year-old present gentleman with history of Edu cancer came in with a GI bleed appears to be bleeding polyp which was a cauterize it. Patient had 1 dark stool today because of which I cannot rule out upper GI bleed patient was started on Protonix. Patient hemoglobin dropped again patient will require 2 units of blood transfusion patient had couple episodes which are bloody because of which his hemoglobin dropped patient had 1 dark stool today. Patient had a syncopal episode patient is fatigued at this time and the patient received 1 L of her bolus of IV fluids that may be something more agitation effect as well and patient is on 100 mL of normal saline. Discussed with gastroenterology Constitutional: patient is fatigued Cardio vascular: denied any chest pain, palpitations Gastrointestinal denied any nausea vomiting Pulmonary: Denied any shortness of breath cough Neurologic denied any new focal deficits All inpatient medications were reviewed and appropriate changes in these medications as dictated in the interval history and assessment and plan. 03/16/2019 hemoglobin 9.2 status post transfusion of 2 units packed RBCs. Status post EGD and colonoscopy reporting left-sided diverticulosis. Serial CBCs in place. No further bleeding reported. No abdominal pain. No bowel movement. Tolerating full liquids with no nausea vomiting or diarrhea. Left elbow x-ray reporting no fractures, evaluated by orthopedics with no surgical intervention recommended at this time. Doppler of left arm reporting significant subcutaneous edema in the left forearm, no acute DVT, possible acute thrombosis of the superficial left cephalic vein. 03/18/2019 nausea improving on Zofran.appetite fair. Receiving B12 injections. Dietary consult in place. maintained on IV fluid hydration.Negative for orthostatic hypotension but when standing up at bedside by physical therapy,Staff reporting unable to obtain patient's blood pressure, became extremely pale; diet adjusted to include unlimited salt. Thigh-high teds. Burgundy bowel movements 2 yesterday, and this morning, brn. Current hemog lobin 7.4.afebrile, normal WBC.Denies pain. Significantly weak. Evaluated by physical therapy, subacute rehab recommended at discharge. 03/19/2019 [place] stool last night, hemoglobin 7.6. Ascending colon biopsy, hyperplastic, nonmalignant. Borderline hypotension yesterday afternoon. Reports dizziness with standing. Telemetry sinus rhythm. Echo completed yesterday, report pending. Denies pain. Afebrile, normal WBC. Objective - Vital Signs Vital signs: Vital Signs Temp 97.8 F 03/19/19 05:00 Pulse 83 03/19/19 08:40 Resp 20 03/19/19 08:40 BP 109/64 03/19/19 08:40 Pulse Ox 98 03/19/19 08:40 Intake & Output 03/18/19 03/19/19 03/19/19 18:59 06:59 18:59 Intake Total 2300 2280 Output Total 200 600 Balance 2100 1680 Weight 72.575 kg Intake: Intake, IV Titration 1100 900 Amount Sodium Chloride 0.9% 1, 1000 900 000 ml @ 100 mls/hr IV . Q10H AIDA Rx#:[id number] Sodium Ferric Gluconat- 100 Sucrose 125 mg In Sodium Chloride 0.9% 100 ml @ 100 mls/hr IVPB DAILY AIDA Rx#:[id number] Oral 1200 1380 Output: Urine 200 600 Other: Voiding Method Urinal Urinal # Voids 5 2 # Bowel Movements 2 - Exam GENERAL: The patient is alert and oriented x3, no acute distress. HEENT: Pupils are round and equally reacting to light. EOMI. No scleral icterus. does have conjunctival pallor. Normocephalic, atraumatic. CARDIOVASCULAR: S1 and S2 present. No murmurs, rubs, or gallops. PULMONARY: Unlabored,Chest is clear to auscultation, no wheezing or crackles. no wheezing ABDOMEN: Soft, nontender, nondistended, normoactive bowel sounds. No palpable or ganomegaly. MUSCULOSKELETAL: No joint swelling or deformity. EXTREMITIES: No cyanosis, clubbing, or pedal edema. NEUROLOGICAL: cranial nerves II through XII grossly intact, moves all 4 extremities, generalized diffuse weakness, no focal deficits. SKIN: No rashes. - Labs CBC & Chem 7: 03/19/19 06:52 03/16/19 06:56 Labs: Abnormal Lab Results - Last 24 Hours (Table) 03/19/19 Range/Units 06:52 RBC 2.51 L (4.30-5.90) m/uL Hgb 7.6 L (13.0-17.5) gm/dL Hct 23.0 L (39.0-53.0) % RDW 15.9 H (11.5-15.5) % Assessment and Plan Assessment: -Acute blood loss anemia secondary to left-sided diverticulosis, bleeding polyp that was cauterized. Status post transfusions of packed RBCs.Anemia secondary to B12 deficiency,related to recent Whipple procedure. -Symptomatic hypotension secondary to the above, improved -Lightheadedness secondary to hypovolemia secondary to GI bleed -History of pancreatic adenocarcinoma , status post recent Whipple's procedure -Hyperlipidemia -possible acute thrombosis of the superficial left cephalic vein,no antiplatelet therapy at this time, warm compresses only recommended as per hematology/oncology secondary to high risk given recent GI bleed. -moderate protein calorie malnutrition, BMI 24.3 Plan: Continue on current medication regime ,monitoring and symptomatic treatment. Receiving vitamin B12 ,PPI.one unit of packed RBCs ordered for symptomatic anemia/hemodynamic instability. Further GI recommendations pending. Echo results pending.BMP/magnesium pending. Close monitoring of hemoglobin with repeat labs ordered in a.m.Potential subacute rehab. at nm. Prognosis guarded given multiple complex medical issues. The impression and plan of care has been dictated as directed. : I performed a history and examination of this patient, discussed the same with the dictator. I agree with the dictator's note ,documented as a scribe. Any additional findings or plans will be noted.
--- NOTE | 2019-03-19 11:20 | P.PN ---
Subjective Progress Note Date: 03/19/19 Principal diagnosis: GI bleed. Onc for pancreatic adenocarcinoma, s/p WHIPPLE procedure-high risk path, need for adjuvant chemo In f/u today pt is wanting to go home. He states he feels fine other then weakness and inability to stand up without passing out. No fever, nausea, vomiting, abd pain or cramping, dysuria, hematuria, he continues to have occult + stool as of yesterday, no numbness, tingling, dizziness when resting or sitting. Objective - Vital Signs Vital signs: Vital Signs Temp 97.8 F 03/19/19 05:00 Pulse 83 03/19/19 08:40 Resp 26 H 03/19/19 08:45 BP 73/44 03/19/19 08:45 Pulse Ox 100 03/19/19 08:48 Intake & Output 03/18/19 03/19/19 03/19/19 18:59 06:59 18:59 Intake Total 2300 2280 Output Total 200 600 Balance 2100 1680 Weight 72.575 kg Intake: Intake, IV Titration 1100 900 Amount Sodium Chloride 0.9% 1, 1000 900 000 ml @ 100 mls/hr IV . Q10H AIDA Rx#:[id number] Sodium Ferric Gluconat- 100 Sucrose 125 mg In Sodium Chloride 0.9% 100 ml @ 100 mls/hr IVPB DAILY AIDA Rx#:[id number] Oral 1200 1380 Output: Urine 200 600 Other: Voiding Method Urinal Urinal # Voids 5 2 # Bowel Movements 2 - Constitutional General appearance: Present: average body habitus, cooperative, no acute distress - EENT Eyes: Present: anicteric sclerae, EOMI ENT: Present: hearing grossly normal, normal oropharynx - Respiratory Respiratory: bilateral: CTA - Cardiovascular Heart sounds: normal: S1, S2 Abnormal Heart Sounds: Absent: systolic murmur, diastolic murmur, rub, S3 Gallop, S4 Gallop, click, other - Peripheral edema leg Peripheral Edema: bilateral: None - Gastrointestinal General gastrointestinal: Present: normal bowel sounds, soft, tenderness Localized gastrointestinal: tender: diffuse (mild) - Integumentary Integumentary: Present: pale - Neurologic Neurologic: Present: CNII-XII intact - Musculoskeletal Musculoskeletal: Present: generalized weakness - Psychiatric Psychiatric: Present: A&O x's 3, appropriate affect, intact judgment & insight - Labs CBC & Chem 7: 03/19/19 06:52 03/16/19 06:56 Labs: Abnormal Lab Results - Last 24 Hours (Table) 03/19/19 03/19/19 Range/Units 06:52 09:09 RBC 2.51 L (4.30-5.90) m/uL Hgb 7.6 L (13.0-17.5) gm/dL Hct 23.0 L (39.0-53.0) % RDW 15.9 H (11.5-15.5) % Crossmatch See Detail Assessment and Plan (1) GI bleed Narrative/Plan: S/P EGD/colon with Dr. Melendez, snared polyp and left colon suspicious as site of bleed-nothing active. Defer mgmt of the same. Polyp pathology returned negative for malignancy. With recent gastrointestinal bleeding antiplatelet therapy for superficial thrombosis of the left upper extremity is going to be at high risk. Recommendation and orders for warm compresses only. Current Visit: Yes Status: Acute Priority: High Code(s): K92.2 - GASTROINTESTINAL HEMORRHAGE, UNSPECIFIED SNOMED Code(s): 13095465 (2) Pancreatic cancer Narrative/Plan: S/P WHIPPLE procedure. Pathological findings place him in high risk for recurrence and adj chemo is recommended. Patient is due for surgical follow-up with imaging at [facility] in early March. His appointment with Dr. Obrien is on April 07. Based on imaging and recovery from surgery patient is going to be considered for adjuvant chemotherapy. Patient's current situation does not seem to be related to his recent surgery or diagnosis of resected pancreatic cancer. Agree with workup and supportive care at this time. Patient will likely require some rehabilitation which will be good for his recuperation. Pathology from colonoscopy was negative for malignancy. Current Visit: Yes Status: Acute Priority: High Code(s): C25.9 - MALIGNANT NEOPLASM OF PANCREAS, UNSPECIFIED SNOMED Code(s): 791283343 (3) Anemia Narrative/Plan: Suspect progressive related to acute GI bleeding. With recent Whipple procedure there may be a degree of malabsorption. Iron and B12 deficiency diagnosed, both are being supplemented. CBC is stable. Due to symptoms of dizziness, near syncopy pt is being kearney sfused Current Visit: Yes Status: Acute Priority: Medium Code(s): D64.9 - ANEMIA, UNSPECIFIED SNOMED Code(s): 962555588 Plan: Did research differential Dx for orthostatic hypotension. Pt was fine afte surgery and fully functional until the last few weeks. NCBI/NLM/NIH 4D AID acronym for postural hypotension reviewed. Pending ECHO hugo teague. Med list reviewed-aricept is on the of meds to look at but, he has been on this for quite some time. Pt has no neuropathy, DM. B12 deficiency is on the list for autonomic dysfunction and this is diagnosed. Pt is receiving supplementation. Will cont to follow with Internal Medicine
--- NOTE | 2019-03-19 11:23 | ECHOF ---
Referral Reason:LV fx MEASUREMENTS -------- HEIGHT: 172.7 cm WEIGHT: 72.6 kg BP: 98/61 IVSd: 1.8 cm (0.6 - 1.1) LVIDd: 2.6 cm (3.9 - 5.3) LVPWd: 1.5 cm (0.6 - 1.1) IVSs: 2.1 cm LVIDs: 1.8 cm LVPWs: 1.7 cm Ao Diam: 3.1 cm (2.0 - 3.7) AV Cusp: 1.2 cm (1.5 - 2.6) LA Diam: 3.0 cm (2.7 - 3.8) MV E Jordan: 0.59 m/s MV DecT: 263 ms MV A Jordan: 0.80 m/s MV E/A Ratio: 0.74 RAP: 5.00 mmHg RVSP: 30.11 mmHg FINDINGS -------- Sinus rhythm. TDS STUDY This was a technically difficult study with suboptimal views. The left ventricular size is normal. There is moderate concentric left ventricular hypertrophy. O verall left ventricular systolic function is normal with, an EF between 55 - 60 %. Diastolic functi on sould not be determined The RV was not well visualized. The left atrial size is normal. The right atrium was not well visualized. Lumason used The aortic valve was not well visualized. The mitral valve was not well visualized. No mitral regurgitation. The tricuspid valve was not well visualized. Mild tricuspid regurgitation present. There is no ev idence of pulmonary hypertension. The right ventricular systolic pressure, as measured by Doppler, is 30.11mmHg. The pulmonic valve was not well visualized. There is no pulmonic regurgitation present. The aortic root size is normal. IVC not well visualized There is no pericardial effusion. CONCLUSIONS -------- 1. Sinus rhythm. TDS STUDY 2. The left ventricular size is normal. 3. There is moderate concentric left ventricular hypertrophy. 4. Overall left ventricular systolic function is normal with, an EF between 55 - 60 %. 5. Diastolic function sould not be determined 6. The RV was not well visualized. 7. The left atrial size is normal. 8. The right atrium was not well visualized. 9. Lumason used 10. The aortic valve was not well visualized. 11. The mitral valve was not well visualized. 12. No mitral regurgitation. 13. The tricuspid valve was not well visualized. 14. Mild tricuspid regurgitation present. 15. There is no evidence of pulmonary hypertension. 16. The pulmonic valve was not well visualized. 17. There is no pulmonic regurgitation present. 18. The aortic root size is normal. 19. IVC not well visualized 20. There is no pericardial effusion. RESOURCE SPECIALIST: Cassidy Diego RDCS
[2019-03-19 11:24] LABS: ALT 29 U/L (21-72); AST 29 U/L (17-59); African American GFR (CKD) >90 (>60 ml/min/1.73 sqM); Albumin 1.6 g/dL (3.5-5.0); Alkaline Phosphatase 74 U/L (38-126); Anion Gap 2 mmol/L; Blood Urea Nitrogen 13 mg/dL (9-20); Calcium 7.1 mg/dL (8.4-10.2); Carbon Dioxide 24 mmol/L (22-30); Chloride 113 mmol/L (98-107); Glucose 88 mg/dL (74-99); Potassium 3.6 mmol/L (3.5-5.1); Sodium 139 mmol/L (137-145); Total Bilirubin 0.2 mg/dL (0.2-1.3)
[2019-03-19] MEDS: CREON 36000 UNIT PO PRN (13:05)
--- NOTE | 2019-03-19 14:22 | P.CRDCN ---
History of Present Illness History of present illness: This is a pleasant 78-year-old male past medical history significant for pancreatic cancer, dyslipidemia and former nicotine dependence. He denies history of coronary artery disease, hypertension or diabetes mellitus. In November 2018 he underwent whipple procedure and had a mesenteric artery laceration. He presented to the hospital on this admission secondary to acute GI bleeding and dizziness. He has undergone multiple blood transfusion and a colonoscopy with snare polypectomy. Pathology negative for malignancy. We have been asked to see him due to orthostaitc changes. He is seen and examined laying flat in bed undergoing a PRBC transfusion. He denies dizziness currently while in bed. He states when he gets up to stand or change positions he becomes acutely dizzy and feels like he will pass out. He denies chest pain, shortness of breath, palpitations, nausea, vomiting or diaphoresis. There is no PND/orthopnea. He underwent echocardiogram yesterday revealing preserved LV systolic function with EF 55-60% and mild TR. No EKG on this admission. Laboratory data reviewed, WBC 6.6, hemoglobin 7.6, platelets 225, sodium 139, potassium 3.6, creatinine 0.74, total protein for an albumin 1.6. Blood pressure 122/73 with a heart rate of 73. This morning blood pressure was 73/44. At the time of my exam: CONSTITUTIONAL: Denies fever. Denies chills. EYES: Denies blurred vision. Denies vision changes. Denies eye pain. EARS, NOSE, MOUTH & THROAT: Denies headache. Denies sore throat. Denies ear pain. CARDIOVASCULAR: Denies chest pain. Denies shortness of breath. Denies orthopnea. Denies PND. Denies palpitations. RESPIRATORY: Denies cough. GASTROINTESTINAL: Denies abdominal pain. Denies diarrhea. Denies constipation. Denies nausea. Denies vomiting. MUSCULOSKELETAL: Denies myalgias. INTEGUMENTARY: Denies pruitis. Denies rash. NEUROLOGIC: Denies numbness. Denies tingling. Complains of weakness and dizziness position changes. PSYCHIATRIC: Denies anxiety. Denies depression. ENDOCRINE: Denies fatigue. Denies weight change. Denies polydipsia. Denies polyurina. GENITOURINARY: Denies burning, hematuria or urgency with micturation. HEMATOLOGIC: Denies history of anemia. Denies bleeding. GENERAL: This is a 78-year-old occasion male in no apparent distress at the time of my examination. Generalized pallor. HEENT: Head is atraumatic, normocephalic. Pupils are equal, round. Sclerae anicteric. Conjunctivae are clear. Mucous membranes of the mouth are moist. Neck is supple. There is no jugular venous distention. No carotid bruit is heard. LUNGS: Clear to auscultation no wheezes, rales or rhonchi. No chest wall tenderness is noted on palpation or with deep breathing. HEART: Regular rate and rhythm without murmurs, rubs or gallops. S1 and S2 heard. ABDOMEN: Soft, nontender. Bowel sounds are heard. No organomegaly noted. EXTREMITIES: Bilateral lower extremity nonpitting edema and no calf tenderness noted. VASCULAR: Radial and dorsalis pedis pulses palpated, no evidence of clubbing. NEUROLOGIC: Patient is awake, alert and oriented x3. ASSESSMENT Hypotension Hypoalbuminemia Protein calorie malnutrition Normocytic normochromic anemia, requiring blood transfusion. Secondary to GI bleed. Pancreatic adenocarcinoma s/p whipple procedure PLAN Orthostatic changes secondary to volume depletion from anemia as well as protein deficiency. Symptoms should improve with blood transfusions. Suggest increasing oral intake of protein as tolerated. May require TPN if he cannot tolerate. RAJ hose bilaterally. Changing positions slowly and increasing oral intake of salt. Can consider florinef if this persisted despite volume improvement. Thank you kindly for this consultation. Nurse Practitioner note has been reviewed, I agree with a documented findings and plan of care. Patient was seen and examined. Past Medical History Past Medical History: Cancer, Dementia, GERD/Reflux, Hyperlipidemia, Memory Impairment, Osteoarthritis (OA) Additional Past Medical History / Comment(s): 1999 Prostate cancer with prostatectomy, occasional low back pain with bilateral lower leg numbness but mu ch improved since back surgery, hyperlipidemia in past but taken off RX, bilateral pedal edema past 1-2 years, pancreatic cancer diagnosed March 2018, Whipple procedure done at [facility] 12/25/[address] Oziel Dorman. History of Any Multi-Drug Resistant Organisms: None Reported Past Surgical History: Back Surgery, Joint Replacement, Prostate Surgery Additional Past Surgical History / Comment(s): Prostatectomy, low back surgery, 2 cervical fusions, total L hip arthroplasty, ESS, colonoscopy, Whipple procedure done 12/25/18 Past Anesthesia/Blood Transfusion Reactions: No Reported Reaction Past Psychological History: No Psychological Hx Reported Additional Psychological History / Comment(s): Pt resides with his spouse of 56 yrs. He uses a cane occasionally. He is independent. Smoking Status: Former smoker Past Alcohol Use History: Occasional Additional Past Alcohol Use History / Comment(s): Pt started smoking in 1954 and quit in 1984. Past Drug Use History: None Reported - Past Family History Mother Additional Family Medical History / Comment(s): heart problems age 90 Father Family Medical History: Cancer Additional Family Medical History / Comment(s): Father at the age of 68 yrswith metatstatic cancer unknown primary. Brother(s) Additional Family Medical History / Comment(s): prostate CA Sister(s) Family Medical History: Cancer Additional Family Medical History / Comment(s): 3 sisters with CA Medications and Allergies Home Medications Medication Instructions Recorded Confirmed Type Donepezil [Aricept] 10 mg PO HS 04/25/18 03/12/19 History Aspirin EC [Ecotrin Low Dose] 81 mg PO DAILY 03/12/19 03/12/19 History Lipase/Protease/Amylase [Sophia Hlolingsworth 72,000 units PO TID BETWEEN MEALS 03/12/19 03/12/19 History 36,000 Units Capsule] Lipase/Protease/Amylase [Sophia Hollingsworth 108,000 units PO TID 03/12/19 03/12/19 History 36,000 Units Capsule] Allergies Allergy/AdvReac Type Severity Reaction Status Date / Time No Known Allergies Allergy Verified 03/12/19 15:19 Physical Exam Vitals: Vital Signs Temp Pulse Pulse Resp BP BP BP 03/19/19 13:38 73 18 122/73 03/19/19 12:30 78 18 117/70 03/19/19 12:00 98 F 71 20 107/68 03/19/19 11:50 97.4 F L 79 20 108/67 03/19/19 11:44 97.4 F L 79 16 03/19/19 08:48 03/19/19 08:45 26 H 03/19/19 08:40 83 20 109/64 03/19/19 08:35 79 18 03/19/19 05:00 97.8 F 88 16 124/60 03/19/19 00:00 87 16 03/18/19 20:07 97.1 F L 87 16 110/59 03/18/19 16:59 88 20 03/18/19 16:57 98.8 F 88 16 98/62 03/18/19 15:07 86 16 BP BP Pulse Ox 03/19/19 13:38 100 03/19/19 12:30 100 03/19/19 12:00 100 03/19/19 11:50 100 03/19/19 11:44 108/67 100 03/19/19 08:48 100 03/19/19 08:45 73/44 77 L 03/19/19 08:40 98 03/19/19 08:35 110/62 99 03/19/19 05:00 97 03/19/19 00:00 03/18/19 20:07 03/18/19 16:59 03/18/19 16:57 95 03/18/19 15:07 Intake and Output 03/18/19 03/19/19 03/19/19 22:59 06:59 14:59 Intake Total 1440 840 310 Output Total 200 600 Balance 1240 240 310 Intake: Intake, IV Titration 300 600 Amount Sodium Chloride 0.9% 1, 300 600 000 ml @ 100 mls/hr IV . Q10H [facility] Rx#:[id number] Oral 1140 240 Blood Product 310 Rc As-1 Unit 310 [id number] Output: Urine 200 600 Other: Voiding Method Urinal Urinal # Voids 1 2 # Bowel Movements 2 Weight 72.575 kg Results 03/19/19 06:52 03/19/19 06:52 Cardiac Enzymes 03/19/19 Range/Units 06:52 AST 29 (17-59) U/L CBC 03/19/19 Range/Units 06:52 WBC 6.6 (3.8-10.6) k/uL RBC 2.51 L (4.30-5.90) m/uL Hgb 7.6 L (13.0-17.5) gm/dL Hct 23.0 L (39.0-53.0) % Plt Count 225 (150-450) k/uL Comprehensive Metabolic Panel 03/19/19 Range/Units 06:52 Sodium 139 (137-145) mmol/L Potassium 3.6 (3.5-5.1) mmol/L Chloride 113 H (98-107) mmol/L Carbon Dioxide 24 (22-30) mmol/L BUN 13 (9-20) mg/dL Creatinine 0.74 (0.66-1.25) mg/dL Glucose 88 (74-99) mg/dL Calcium 7.1 L (8.4-10.2) mg/dL AST 29 (17-59) U/L ALT 29 (21-72) U/L Alkaline Phosphatase 74 (38-126) U/L Total Protein 4.0 L (6.3-8.2) g/dL Albumin 1.6 L (3.5-5.0) g/dL Current Medications Generic Name Dose Route Start Last Admin Trade Name Freq PRN Reason Stop Dose Admin Cyanocobalamin 1,000 mcg 03/17/19 10:30 03/19/19 09:10 Vitamin B-12 IM 03/21/19 09:01 1,000 mcg DAILY [facility] Administration Donepezil HCl 10 mg 03/14/19 21:00 03/18/19 21:44 Aricept PO 10 mg HS AIDA Administration Sodium Chloride 1,000 mls @ 100 mls/hr 03/14/19 11:15 03/19/19 09:12 Saline 0.9% IV 100 mls/hr .Q10H [facility] Administration Ferric Sodium Gluconate 125 mg 110 mls @ 100 mls/hr 03/18/19 13:00 03/19/19 09:10 / Sodium Chloride IVPB 03/20/19 10:05 100 mls/hr DAILY [facility] Administration Sophia Hollingsworth (Lipase/ 108,000 units 03/14/19 17:30 03/19/19 09:10 Protease/Amylase) 36 PO 108,000 units ,000 Unit Capsule AC-TID [facility] Administration Sophia Hollingsworth (Lipase/ 72,000 units 03/14/19 14:24 03/19/19 13:05 Protease/Amylase) 36 PO 72,000 units ,000 Unit Capsule TID BETWEEN MEALS PRN Administration SNACKS Ondansetron HCl 4 mg 03/17/19 17:50 03/18/19 07:59 Zofran IVP 4 mg Q6HR PRN Administration Nausea And Vomiting Pantoprazole Sodium 40 mg 03/15/19 21:00 03/19/19 09:10 Protonix IVP 40 mg BID AIDA Administration Sodium Chloride 1 gm 03/18/19 13:30 03/19/19 09:10 Sodium Chloride Tab PO 1 gm DAILY AIDA Administration Intake and Output 03/18/19 03/19/19 03/19/19 22:59 06:59 14:59 Intake Total 1440 840 310 Output Total 200 600 Balance 1240 240 310 Intake: Intake, IV Titration 300 600 Amount Sodium Chloride 0.9% 1, 300 600 000 ml @ 100 mls/hr IV . Q10H [facility] Rx#:[id number] Oral 1140 240 Blood Product 310 Rc As-1 Unit 310 [id number] Output: Urine 200 600 Other: Voiding Method Urinal Urinal # Voids 1 2 # Bowel Movements 2 Weight 72.575 kg 03/19/19 06:52 03/19/19 06:52
--- NOTE | 2019-03-19 19:38 | PN ---
PROGRESS NOTE DATE OF DICTATION: 03/19/2019 Patient is a 78-year-old pleasant white male admitted to the hospital with acute lower GI bleed, possibly diverticular in nature. He underwent an EGD, colonoscopy 5 days ago that showed sigmoid diverticulosis and some gastritis. The patient received a total of 3 units of blood transfusion during this hospitalization. His hemoglobin has been stable for the last 3 days. He still complains of fatigue and weakness and dizziness when standing up. He denies any abdominal pain. No bowel movements today. PHYSICAL EXAMINATION: He appears comfortable. No apparent distress. VITAL SIGNS: Stable. Blood pressure is 128/96, pulse rate 86 per minute and afebrile. HEENT examination unremarkable. Conjunctivae pink. Sclerae anicteric. Oral cavity no lesions. NECK: No JVD or lymph node enlargement. CHEST: Clear to auscultation. HEART: Regular rate and rhythm. ABDOMEN: Soft. It was non-tender, non-distended. Bowel sounds are positive. No organomegaly. EXTREMITIES: No pedal edema. SKIN: No rashes. NEUROLOGIC: Alert and oriented x3. No focal deficits. LABS: Labs from today show WBC 5.4, hemoglobin 8.6, platelets normal. IMPRESSION: 1. Acute diverticular bleed, resolved. Hemoglobin is stable. 2. History of pancreatic cancer, status post Whipple surgery 2 months ago at [facility]. Oncology following the patient closely. 3. Dizziness. Workup in progress. RECOMMENDATIONS: 1. Advance diet as tolerated. 2. Monitor CBC on a daily basis. Will sign off at this time. Please call us if needed. Thank you for this consultation. MMODL / IJN: [id number] /
[2019-03-19] MEDS: DONEPEZIL 10 MG TAB PO SCH (21:19)
[2019-03-20] MEDS: SODIUM CHLORIDE 0.9% 1,000 ML IV SCH ×3 (08:24→20:31)
[2019-03-20] MEDS: CYANOCOBALAMIN 1,000 MCG/ML 1 ML VIAL IM SCH (08:25)
[2019-03-20] MEDS: PANTOPRAZOLE 40 MG/10 ML VIAL IVP SCH ×2 (08:25→20:30)
[2019-03-20] MEDS: SODIUM CHLORIDE TAB 1 GM TAB PO SCH (08:25)
[2019-03-20] MEDS: CREON 36000 UNIT PO PRN (08:43)
[2019-03-20] MEDS: CREON 36000 UNIT PO SCH ×3 (08:48→16:30)
[2019-03-20] MEDS: SODIUM FERRIC GLUCONAT-SUCROSE 125 MG in SODIUM CHLORIDE 0.9% 100 ML IVPB SCH (09:46)
[2019-03-20 11:44] LABS: Basophils # (A) 0.1 k/uL (0-0.2); Basophils % (A) 1 %; Eosinophils # (A) 0.4 k/uL (0-0.7); Eosinophils % (A) 7 %; HCT 27.4 % (39.0-53.0); HGB 8.9 gm/dL (13.0-17.5); Lymphocytes # (A) 0.7 k/uL (1.0-4.8); Lymphocytes % (A) 11 %; MCH 30.2 pg (25.0-35.0); MCHC 32.6 g/dL (31.0-37.0); MCV 92.5 fL (80.0-100.0); Mean Platelet Volume 7.9; Monocytes # (A) 0.4 k/uL (0-1.0); Monocytes % (A) 6 %; Neutrophils # (A) 4.8 k/uL (1.3-7.7); Neutrophils % (A) 74 %; Platelet Count 234 k/uL (150-450); RBC 2.96 m/uL (4.30-5.90); RDW 15.8 % (11.5-15.5); WBC 6.5 k/uL (3.8-10.6)
--- NOTE | 2019-03-20 12:56 | P.PN ---
Subjective Progress Note Date: 03/20/19 Principal diagnosis: Diverticulosis Objective - Vital Signs Vital signs: Vital Signs Temp 98.2 F 03/20/19 12:13 Pulse 97 03/20/19 12:13 Resp 16 03/20/19 12:13 BP 113/71 03/20/19 12:13 Pulse Ox 98 03/20/19 12:13 Intake & Output 03/19/19 03/20/19 03/20/19 18:59 06:59 18:59 Intake Total 310 1150 Balance 310 1150 Intake: Intake, IV Titration 1150 Amount Sodium Chloride 0.9% 1, 1150 000 ml @ 100 mls/hr IV . Q10H [facility] Rx#:[id number] Blood Product 310 Rc As-1 Unit 310 [id number] Other: Voiding Method Urinal Urinal # Voids 2 150 # Bowel Movements 2 - Exam Gen: Alert and Oriented, NAD Head: NCNT Neck Supple Heart RRR Lungs No increased effort CTA B Abdomen: S/ND/NT Ext: No Rash, No Edema, Equal Strength Psych: Calm and Coroperative Neuro: No Focal Deficits Noted. - Labs CBC & Chem 7: 03/23/19 06:34 03/23/19 06:34 Labs: Abnormal Lab Results - Last 24 Hours (Table) 03/19/19 03/20/19 Range/Units 09:09 11:00 RBC 2.96 L (4.30-5.90) m/uL Hgb 8.9 L (13.0-17.5) gm/dL Hct 27.4 L (39.0-53.0) % RDW 15.8 H (11.5-15.5) % Lymphocytes # 0.7 L (1.0-4.8) k/uL Crossmatch See Detail Assessment and Plan Plan: Assessment and Rec: Normocytic Anemia: - Acute Blood Loss Anemia, possible component of dilution - Red Stools per RN and Family - GI is following - PRBC Transfusing, can draw iron studies although accuracy maybe decreased with PRBC transfusion - Agree with transfusion less than 7 - Status Post Parental Iron x3 Recent Diagnosis Pancreatic Carcinoma: - Status Post Whipple HFH 2 months prior - Due to decreased performance status and baseline mental status from dementia it was felt he was not a good candidate for systemic treatment in combination which would e the standard treatment options, although high risk path will need to re-discuss once discharged at outpatient follow-up - CT scan restage at [facility] 03.31.19, will obtain this and the result of the Next Gen sequencing ordered in January to see if further options available - Status post GI Evaluation with EGD and Colonoscopy Syncopal with Standing: - Cardiology evaluation Continue supportive care and GI evaluation [facility] Gamb[facility] Attest: I have completed the full history history and physical and devloped the above impression and plan agree with dictation by Carmen Gamboa NP, Dictated as a scribe
[2019-03-20] MEDS ORDERED: Potassium Replacement Protocol 1 EACH MISC MISCELLANE PRN (14:31)
[2019-03-20] MEDS ORDERED: POTASSIUM CHLORIDE ER 20 MEQ TAB.ER PO STA (14:35)
--- NOTE | 2019-03-20 15:23 | P.PN ---
Subjective Progress Note Date: 03/20/19 78-year-old present gentleman with history of Edu cancer came in with a GI bleed appears to be bleeding polyp which was a cauterize it. Patient had 1 dark stool today because of which I cannot rule out upper GI bleed patient was started on Protonix. Patient hemoglobin dropped again patient will require 2 units of blood transfusion patient had couple episodes which are bloody because of which his hemoglobin dropped patient had 1 dark stool today. Patient had a syncopal episode patient is fatigued at this time and the patient received 1 L of her bolus of IV fluids that may be something more agitation effect as well and patient is on 100 mL of normal saline. Discussed with gastroenterology Constitutional: patient is fatigued Cardio vascular: denied any chest pain, palpitations Gastrointestinal denied any nausea vomiting Pulmonary: Denied any shortness of breath cough Neurologic denied any new focal deficits All inpatient medications were reviewed and appropriate changes in these medications as dictated in the interval history and assessment and plan. 03/16/2019 hemoglobin 9.2 status post transfusion of 2 units packed RBCs. Status post EGD and colonoscopy reporting left-sided diverticulosis. Serial CBCs in place. No further bleeding reported. No abdominal pain. No bowel movement. Tolerating full liquids with no nausea vomiting or diarrhea. Left elbow x-ray reporting no fractures, evaluated by orthopedics with no surgical intervention recommended at this time. Doppler of left arm reporting significant subcutaneous edema in the left forearm, no acute DVT, possible acute thrombosis of the superficial left cephalic vein. 03/18/2019 nausea improving on Zofran.appetite fair. Receiving B12 injections. Dietary consult in place. maintained on IV fluid hydration.Negative for orthostatic hypotension but when standing up at bedside by physical therapy,Staff reporting unable to obtain patient's blood pressure, became extremely pale; diet adjusted to include unlimited salt. Thigh-high teds. Burgundy bowel movements 2 yesterday, and this morning, brn. Current hemog lobin 7.4.afebrile, normal WBC.Denies pain. Significantly weak. Evaluated by physical therapy, subacute rehab recommended at discharge. 03/19/2019 [place] stool last night, hemoglobin 7.6. Ascending colon biopsy, hyperplastic, nonmalignant. Borderline hypotension yesterday afternoon. Reports dizziness with standing. Telemetry sinus rhythm. Echo completed yesterday, report pending. Denies pain. Afebrile, normal WBC. 03/20/2019 status post transfusion of 1 unit of packed RBCs yesterday with significant clinical improvement. Post transfusion ,patient was able to tolerate standing at bedside with PT. Hemoglobin 8.9. Denies chest pain, palpitations, or shortness of breath.. Denies abdominal pain. Consumed 50% of breakfast with no nausea, vomiting.Nonbloody, brown bowel movement this morning. Generalized weakness persists.Telemetry sinus rhythm. Echo technically difficult study, reported moderate left ventricular hypertrophy, normal LV function, EF 55-60%. Evaluated by cardiology with recommendations noted and appreciated. Objective - Vital Signs Vital signs: Vital Signs Temp 98.2 F 03/20/19 12:13 Pulse 97 03/20/19 12:13 Resp 16 03/20/19 12:13 BP 113/71 03/20/19 12:13 Pulse Ox 98 03/20/19 12:13 Intake & Output 03/19/19 03/20/19 03/20/19 18:59 06:59 18:59 Intake Total 310 1150 Balance 310 1150 Intake: Intake, IV Titration 1150 Amount Sodium Chloride 0.9% 1, 1150 000 ml @ 100 mls/hr IV . Q10H [facility] Rx#:[id number] Blood Product 310 Rc As-1 Unit 310 [id number] Other: Voiding Method Urinal Urinal # Voids 2 150 # Bowel Movements 2 - Exam GENERAL: The patient is alert and oriented x3, no acute distress. HEENT: Pupils are round and equally reacting to light. EOMI. No scleral icterus. does have conjunctival pallor. Normocephalic, atraumatic. CARDIOVASCULAR: S1 and S2 present. No murmurs, rubs, or gallops. PULMONARY: Unlabored,Chest is clear to auscultation, no wheezing or crackles. no wheezing ABDOMEN: Soft, nontender, nondistended, normoactive bowel sounds. No palpable organomegaly. EXTREMITIES: No cyanosis, clubbing, or pedal edema. No calf tenderness. NEUROLOGICAL: cranial nerves II through XII grossly intact, moves all 4 extremit ies, generalized diffuse weakness, no focal deficits. SKIN: No rashes. - Labs CBC & Chem 7: 03/20/19 11:00 03/19/19 06:52 Labs: Abnormal Lab Results - Last 24 Hours (Table) 03/20/19 Range/Units 11:00 RBC 2.96 L (4.30-5.90) m/uL Hgb 8.9 L (13.0-17.5) gm/dL Hct 27.4 L (39.0-53.0) % RDW 15.8 H (11.5-15.5) % Lymphocytes # 0.7 L (1.0-4.8) k/uL Assessment and Plan Assessment: -Acute symptomatic blood loss anemia secondary to left-sided diverticulosis, bleeding polyp that was cauterized. Status post transfusions of packed RBCs. -Chronic Anemia secondary to B12 deficiency,related to recent Whipple procedure. -Symptomatic Hypotension, hypovolemic secondary to all the above -Pancreatic adenocarcinoma , status post recent Whipple's procedure -Hyperlipidemia -Possible acute thrombosis of the superficial left cephalic vein,no antiplatelet therapy at this time,as per hematology/oncology secondary to high risk given recent GI bleed. -Hypoalbuminemia -moderate protein calorie malnutrition, BMI 24.3 -Dementia, possibly Alzheimer's Plan: Continue on current medication regime , PPI, monitoring and symptomatic treatment. Dietary supplements between meals .Close monitoring of hemoglobin with CBC/labs ordered for a.m. Echo results pending.BMP/magnesium pending. Close monitoring of hemoglobin with repeat labs ordered in a.m.Potential subacut e rehab. at ri. Prognosis guarded given multiple complex medical issues. The impression and plan of care has been dictated as directed. : I performed a history and examination of this patient, discussed the same with the dictator. I agree with the dictator's note ,documented as a scribe. Any additional findings or plans will be noted.
[2019-03-20] MEDS: DONEPEZIL 10 MG TAB PO SCH (20:30)
[2019-03-21] MEDS: SODIUM CHLORIDE 0.9% 1,000 ML IV SCH ×2 (04:47→22:51)
[2019-03-21 08:14] LABS: Basophils % (A) 1 %; Eosinophils # (A) 0.4 k/uL (0-0.7); Eosinophils % (A) 6 %; HCT 27.5 % (39.0-53.0); HGB 9.1 gm/dL (13.0-17.5); Lymphocytes # (A) 1.3 k/uL (1.0-4.8); Lymphocytes % (A) 19 %; MCH 30.3 pg (25.0-35.0); MCHC 33.2 g/dL (31.0-37.0); MCV 91.2 fL (80.0-100.0); Mean Platelet Volume 8.8; Monocytes # (A) 0.4 k/uL (0-1.0); Monocytes % (A) 5 %; Neutrophils # (A) 4.8 k/uL (1.3-7.7); Neutrophils % (A) 68 %; Platelet Count 295 k/uL (150-450); RBC 3.01 m/uL (4.30-5.90); RDW 15.8 % (11.5-15.5)
[2019-03-21 08:20] LABS: African American GFR (CKD) >90 (>60 ml/min/1.73 sqM); Anion Gap 2 mmol/L; Blood Urea Nitrogen 10 mg/dL (9-20); Calcium 7.1 mg/dL (8.4-10.2); Carbon Dioxide 26 mmol/L (22-30); Chloride 113 mmol/L (98-107); Glucose 86 mg/dL (74-99); Magnesium 1.6 mg/dL (1.6-2.3); Sodium 141 mmol/L (137-145)
[2019-03-21 08:34] LABS: Potassium 3.7 mmol/L (3.5-5.1)
[2019-03-21] MEDS: PANTOPRAZOLE 40 MG/10 ML VIAL IVP SCH ×2 (09:15→20:31)
[2019-03-21] MEDS: CYANOCOBALAMIN 1,000 MCG/ML 1 ML VIAL IM SCH (09:16)
[2019-03-21] MEDS: SODIUM CHLORIDE TAB 1 GM TAB PO SCH (09:16)
[2019-03-21] MEDS: CREON 36000 UNIT PO PRN (09:17)
[2019-03-21] MEDS: CREON 36000 UNIT PO SCH ×3 (09:24→17:51)
[2019-03-21] MEDS: DONEPEZIL 10 MG TAB PO SCH (20:31)
--- NOTE | 2019-03-22 01:31 | P.PN ---
Subjective Progress Note Date: 03/21/19 Principal diagnosis: Acute symptomatic anemia due to GI bleed. Orthostatic hypotension and dizziness 78-year-old present gentleman with history of Edu cancer came in with a GI b leed appears to be bleeding polyp which was a cauterize it. Patient had 1 dark stool today because of which I cannot rule out upper GI bleed patient was started on Protonix. Patient hemoglobin dropped again patient will require 2 units of blood transfusion patient had couple episodes which are bloody because of which his hemoglobin dropped patient had 1 dark stool today. Patient had a syncopal episode patient is fatigued at this time and the patient received 1 L of her bolus of IV fluids that may be something more agitation effect as well and patient is on 100 mL of normal saline. Discussed with gastroenterology 03/16/2019 hemoglobin 9.2 status post transfusion of 2 units packed RBCs. Status post EGD and colonoscopy reporting left-sided diverticulosis. Serial CBCs in place. No further bleeding reported. No abdominal pain. No bowel movement. Tolerating full liquids with no nausea vomiting or diarrhea. Left elbow x-ray reporting no fractures, evaluated by orthopedics with no surgical intervention recommended at this time. Doppler of left arm reporting significant subcutaneous edema in the left forearm, no acute DVT, possible acute thrombosis of the superficial left cephalic vein. 03/18/2019 nausea improving on Zofran.appetite fair. Receiving B12 injections. Dietary consult in place. maintained on IV fluid hydration.Negative for orthostatic hypotension but when standing up at bedside by physical therapy,Staff reporting unable to obtain patient's blood pressure, became extremely pale; diet adjusted to include unlimited salt. Thigh-high teds. Burgundy bowel movements 2 yesterday, and this morning, brn. Current hemoglobin 7.4.afebrile, normal WBC.Denies pain. Significantly weak. Evaluated by physical therapy, subacute rehab recommended at discharge. 03/19/2019 Burgundy stool last night, hemoglobin 7.6. Ascending colon biopsy, hyperplastic, nonmalignant. Borderline hypotension yesterday afternoon. Reports dizziness with standing. Telemetry sinus rhythm. Echo completed yesterday, report pending. Denies pain. Afebrile, normal WBC. 03/20/2019 status post transfusion of 1 unit of packed RBCs yesterday with significant clinical improvement. Post transfusion ,patient was able to tolerate standing at bedside with PT. Hemoglobin 8.9. Denies chest pain, palpitations, or shortness of breath.. Denies abdominal pain. Consumed 50% of breakfast with no nausea, vomiting.Nonbloody, brown bowel movement this morning. Generalized weakness persists.Telemetry sinus rhythm. Echo technically difficult study, reported moderate left ventricular hypertrophy, normal LV function, EF 55-60%. Evaluated by cardiology with recommendations noted and appreciated. 03/21/2019 Patient is awake alert and oriented. No complaints of chest pain are worsening shortness of breath. Hemoglobin improved to 9.1. No abdominal pain. No nausea vomiting. Otherwise patients oral intake has been very less. Encourage to drink ensure as well. Dizziness likely due to Orthostatic hypotension and hypoalbuminemia. 2-D echocardiogram showed normal ejection fraction. Cardiology has seen the patient. Encourage ambulation and PT OT. Possible discharge to home with home physical therapy. Constitutional: patient is fatigued Cardio vascular: denied any chest pain, palpitations Gastrointestinal denied any nausea vomiting Pulmonary: Denied any shortness of breath cough Neurologic denied any new focal deficits All inpatient medications were reviewed and appropriate changes in these medications as dictated in the interval history and assessment and plan. Objective - Vital Signs Vital signs: Vital Signs Temp 97.9 F 03/21/19 12:58 Pulse 72 03/21/19 15:47 Resp 16 03/21/19 15:47 BP 128/75 03/21/19 12:58 Pulse Ox 99 03/21/19 12:58 Intake & Output 03/21/19 03/21/19 03/22/19 06:59 18:59 06:59 Intake Total 2340 240 Output Total 1320 1506 Balance 1020 -1266 Intake: Intake, IV Titration 800 Amount Sodium Chloride 0.9% 1, 800 000 ml @ 100 mls/hr IV . Q10H AIDA Rx#:[id number] Oral 1540 240 Output: Urine 1320 1500 Stool 6 Other: Voiding Method Urinal Urinal Incontinent # Bowel Movements 2 - Exam GENERAL: The patient is alert and oriented x3, no acute distress. HEENT: Pupils are round and equally reacting to light. EOMI. No scleral icterus. does have conjunctival pallor. Normocephalic, atraumatic. CARDIOVASCULAR: S1 and S2 present. No murmurs, rubs, or gallops. PULMONARY: Unlabored,Chest is clear to auscultation, no wheezing or crackles. no wheezing ABDOMEN: Soft, nontender, nondistended, normoactive bowel sounds. No palpable organomegaly. EXTREMITIES: No cyanosis, clubbing, or pedal edema. No calf tenderness. NEUROLOGICAL: cranial nerves II through XII grossly intact, moves all 4 extremities, generalized diffuse weakness, no focal deficits. SKIN: No rashes. - Labs CBC & Chem 7: 03/21/19 06:45 03/21/19 06:45 Labs: Abnormal Lab Results - Last 24 Hours (Table) 03/21/19 03/21/19 Range/Units 06:45 06:45 RBC 3.01 L (4.30-5.90) m/uL Hgb 9.1 L (13.0-17.5) gm/dL Hct 27.5 L (39.0-53.0) % RDW 15.8 H (11.5-15.5) % Chloride 113 H (98-107) mmol/L Calcium 7.1 L (8.4-10.2) mg/dL Assessment and Plan Assessment: -Acute symptomatic blood loss anemia secondary to left-sided diverticulosis, bleeding polyp that was cauterized. Status post transfusions of packed RBCs. -Chronic Anemia secondary to B12 deficiency,related to recent Whipple procedure. -Symptomatic Hypotension, hypovolemic and orthostatic hypotension worsened while at home already anemia and anemia. -Pancreatic adenocarcinoma , status post recent Whipple's procedure -Hyperlipidemia -Possible acute thrombosis of the superficial left cephalic vein,no antiplatelet therapy at this time,as per hematology/oncology secondary to high risk given recent GI bleed. -Hypoalbuminemia -moderate protein calorie malnutrition, BMI 24.3 -Dementia, possibly Alzheimer's Plan: Continue on current medication regime , PPI, monitoring and symptomatic treatment. Dietary supplements between meals .Close monitoring of hemoglobin with CBC/labs ordered for a.m. Echo results urine.. Close monitoring of hemoglobin with repeat labs ordered in a.m.Potential subacute rehab. [place] Prognosis guarded given multiple complex medical issues. Time with Patient: Greater than 30
[2019-03-22] MEDS: SODIUM CHLORIDE TAB 1 GM TAB PO SCH (08:06)
[2019-03-22] MEDS: CREON 36000 UNIT PO SCH ×3 (08:06→18:05)
[2019-03-22] MEDS: PANTOPRAZOLE 40 MG/10 ML VIAL IVP SCH ×2 (08:06→20:23)
[2019-03-22] MEDS: SODIUM CHLORIDE 0.9% 1,000 ML IV SCH ×2 (08:07→20:23)
[2019-03-22] MEDS: DONEPEZIL 10 MG TAB PO SCH (20:23)
--- NOTE | 2019-03-23 03:12 | P.PN ---
Subjective Progress Note Date: 03/22/19 Principal diagnosis: Acute symptomatic anemia due to GI bleed. Orthostatic hypotension and dizziness 78-year-old present gentleman with history of Edu cancer came in with a GI b leed appears to be bleeding polyp which was a cauterize it. Patient had 1 dark stool today because of which I cannot rule out upper GI bleed patient was started on Protonix. Patient hemoglobin dropped again patient will require 2 units of blood transfusion patient had couple episodes which are bloody because of which his hemoglobin dropped patient had 1 dark stool today. Patient had a syncopal episode patient is fatigued at this time and the patient received 1 L of her bolus of IV fluids that may be something more agitation effect as well and patient is on 100 mL of normal saline. Discussed with gastroenterology 03/16/2019 hemoglobin 9.2 status post transfusion of 2 units packed RBCs. Status post EGD and colonoscopy reporting left-sided diverticulosis. Serial CBCs in place. No further bleeding reported. No abdominal pain. No bowel movement. Tolerating full liquids with no nausea vomiting or diarrhea. Left elbow x-ray reporting no fractures, evaluated by orthopedics with no surgical intervention recommended at this time. Doppler of left arm reporting significant subcutaneous edema in the left forearm, no acute DVT, possible acute thrombosis of the superficial left cephalic vein. 03/18/2019 nausea improving on Zofran.appetite fair. Receiving B12 injections. Dietary consult in place. maintained on IV fluid hydration.Negative for orthostatic hypotension but when standing up at bedside by physical therapy,Staff reporting unable to obtain patient's blood pressure, became extremely pale; diet adjusted to include unlimited salt. Thigh-high teds. [place] bowel movements 2 yesterday, and this morning, brn. Current hemoglobin 7.4.afebrile, normal WBC.Denies pain. Significantly weak. Evaluated by physical therapy, subacute rehab recommended at discharge. 03/19/2019 [place] stool last night, hemoglobin 7.6. Ascending colon biopsy, hyperplastic, nonmalignant. Borderline hypotension yesterday afternoon. Reports dizziness with standing. Telemetry sinus rhythm. Echo completed yesterday, report pending. Denies pain. Afebrile, normal WBC. 03/20/2019 status post transfusion of 1 unit of packed RBCs yesterday with significant clinical improvement. Post transfusion ,patient was able to tolerate standing at bedside with PT. Hemoglobin 8.9. Denies chest pain, palpitations, or shortness of breath.. Denies abdominal pain. Consumed 50% of breakfast with no nausea, vomiting.Nonbloody, brown bowel movement this morning. Generalized weakness persists.Telemetry sinus rhythm. Echo technically difficult study, reported moderate left ventricular hypertrophy, normal LV function, EF 55-60%. Evaluated by cardiology with recommendations noted and appreciated. 03/21/2019 Patient is awake alert and oriented. No complaints of chest pain are worsening shortness of breath. Hemoglobin improved to 9.1. No abdominal pain. No nausea vomiting. Otherwise patients oral intake has been very less. Encourage to drink ensure as well. Dizziness likely due to Orthostatic hypotension and hypoalbuminemia. 2-D echocardiogram showed normal ejection fraction. Cardiology has seen the patient. Encourage ambulation and PT OT. Possible discharge to home with home physical therapy. 03/22/2019 Patient denied any complaints of chest pain or shortness of breath. Denied any blood in the stool. No nausea vomiting or abdominal pain. Able to tolerate oral. Patient was started on ensure liquid. Denied any dizziness currently. PTOT consult to increase ambulation. Possible discharge in next 24-48 hours. Constitutional: patient is fatigued Cardio vascular: denied any chest pain, palpitations Gastrointestinal denied any nausea vomiting Pulmonary: Denied any shortness of breath cough Neurologic denied any new focal deficits All inpatient medications were reviewed and appropriate changes in these medications as dictated in the interval history and assessment and plan. Objective - Vital Signs Vital signs: Vital Signs Temp 96.9 F L 03/22/19 11:29 Pulse 76 03/22/19 16:00 Resp 16 03/22/19 16:00 BP 143/70 03/22/19 11:29 Pulse Ox 99 03/22/19 11:29 Intake & Output 03/21/19 03/22/19 03/22/19 18:59 06:59 18:59 Intake Total 240 2340 1160 Output Total 0187 158 6864 Balance -1266 1938 152 Intake: Intake, IV Titration 800 800 Amount Sodium Chloride 0.9% 1, 800 800 000 ml @ 100 mls/hr IV . Q10H AIDA Rx#:[id number] Oral 240 1540 360 Output: Urine 5511 799 6142 Stool 6 2 8 Other: Voiding Method Urinal Urinal Urinal Incontinent # Voids 0 # Bowel Movements 3 - Exam GENERAL: The patient is alert and oriented x3, no acute distress. HEENT: Pupils are round and equally reacting to light. EOMI. No scleral icterus. does have conjunctival pallor. Normocephalic, atraumatic. CARDIOVASCULAR: S1 and S2 present. No murmurs, rubs, or gallops. PULMONARY: Unlabored,Chest is clear to auscultation, no wheezing or crackles. no wheezing ABDOMEN: Soft, nontender, nondistended, normoactive bowel sounds. No palpable organomegaly. EXTREMITIES: No cyanosis, clubbing, or pedal edema. No calf tenderness. NEUROLOGICAL: cranial nerves II through XII grossly intact, moves all 4 extremities, generalized diffuse weakness, no focal deficits. SKIN: No rashes. - Labs CBC & Chem 7: 03/21/19 06:45 03/21/19 06:45 Assessment and Plan Assessment: -Acute symptomatic blood loss anemia secondary to left-sided diverticulosis, bleeding polyp that was cauterized. Status post transfusions of packed RBCs. -Chronic Anemia secondary to B12 deficiency,related to recent Whipple procedure. -Symptomatic Hypotension, hypovolemic and orthostatic hypotension worsened while at home already anemia and anemia. -Pancreatic adenocarcinoma , status post recent Whipple's procedure -Hyperlipidemia -Possible acute thrombosis of the superficial left cephalic vein,no antiplatelet therapy at this time,as per hematology/oncology secondary to high risk given recent GI bleed. -Hypoalbuminemia -moderate protein calorie malnutrition, BMI 24.3 -Dementia, possibly Alzheimer's Plan: Continue on current medication regime , PPI, monitoring and symptomatic treatment. Dietary supplements between meals .Close monitoring of hemoglobin with CBC/labs ordered for a.m. Echo results urine.. Close monitoring of hemoglobin with repeat labs ordered in a.m.Potential subacute rehab. at [place]. Pro gnosis guarded given multiple complex medical issues. Time with Patient: Greater than 30
[2019-03-23] MEDS: SODIUM CHLORIDE 0.9% 1,000 ML IV SCH (06:22)
[2019-03-23 07:30] LABS: African American GFR (CKD) >90 (>60 ml/min/1.73 sqM); Anion Gap 1 mmol/L; Blood Urea Nitrogen 9 mg/dL (9-20); Carbon Dioxide 29 mmol/L (22-30); Chloride 109 mmol/L (98-107); Glucose 87 mg/dL (74-99); Potassium 3.8 mmol/L (3.5-5.1); Sodium 139 mmol/L (137-145)
[2019-03-23 07:47] LABS: Anisocytosis Slight; Basophils # (A) 0.1 k/uL (0-0.2); Basophils % (A) 1 %; Eosinophils # (A) 0.5 k/uL (0-0.7); Eosinophils % (A) 8 %; HCT 26.2 % (39.0-53.0); HGB 8.7 gm/dL (13.0-17.5); Lymphocytes # (A) 1.3 k/uL (1.0-4.8); Lymphocytes % (A) 19 %; MCH 30.6 pg (25.0-35.0); MCHC 33.1 g/dL (31.0-37.0); MCV 92.5 fL (80.0-100.0); Mean Platelet Volume 7.3; Monocytes # (A) 0.4 k/uL (0-1.0); Monocytes % (A) 6 %; Neutrophils # (A) 4.6 k/uL (1.3-7.7); Neutrophils % (A) 66 %; Platelet Count 308 k/uL (150-450); RBC 2.84 m/uL (4.30-5.90); RDW 16.8 % (11.5-15.5)
[2019-03-23] MEDS: PANTOPRAZOLE 40 MG/10 ML VIAL IVP SCH (07:59)
[2019-03-23] MEDS: CREON 36000 UNIT PO SCH ×2 (07:59→11:56)
[2019-03-23] MEDS: SODIUM CHLORIDE TAB 1 GM TAB PO SCH (08:00)
--- NOTE | 2019-03-23 08:34 | P.DS ---
Providers Date of admission: 03/13/19 11:07 Expected date of discharge: 03/23/19 Attending physician: Jasbir Rollins Consults: 03/13/19 11:41 Consult Physician Routine Consulting Provider: Juliane Obrien Consult Reason/Comments: Pancreatic cancer Do you want consulting provider notified?: Yes 03/19/19 11:02 Consult Physician Urgent Consulting Provider: Tatyana Blood Consult Reason/Comments: Orthostatic hypotension Do you want consulting provider notified?: Yes Primary care physician: Jasbir Rollins Hospital Course: Final Diagnoses: -Acute symptomatic blood loss anemia secondary to left-sided diverticulosis, bleeding polyp that was cauterized. Status post transfusions of packed RBCs. -Chronic Anemia secondary to B12 deficiency,related to recent Whipple procedure. -Symptomatic Hypotension, hypovolemic and orthostatic hypotension worsened while at home already anemia and anemia. -Pancreatic adenocarcinoma , status post recent Whipple's procedure -Hyperlipidemia -Possible acute thrombosis of the superficial left cephalic vein,no antiplatelet therapy at this time,as per hematology/oncology secondary to high risk given recent GI bleed. -Hypoalbuminemia -moderate protein calorie malnutrition, BMI 24.3 -Dementia, possibly Alzheimer's Hospital course:Acute symptomatic anemia due to GI bleed. Orthostatic hypotension and dizziness 78-year-old present gentleman with history of Edu cancer came in with a GI bleed appears to be bleeding polyp which was a cauterize it. Patient had 1 dark stool today because of which I cannot rule out upper GI bleed patient was started on Protonix. Patient hemoglobin dropped again patient will require 2 units of blood transfusion patient had couple episodes which are bloody because of which his hemoglobin dropped patient had 1 dark stool today. Patient had a syncopal episode patient is fatigued at this time and the patient received 1 L of her bolus of IV fluids that may be something more agitation effect as well and patient is on 100 mL of normal saline. Discussed with gastroenterology 03/16/2019 hemoglobin 9.2 status post transfusion of 2 units packed RBCs. Status post EGD and colonoscopy reporting left-sided diverticulosis. Serial CBCs in place. No further bleeding reported. No abdominal pain. No bowel movement. Tolerating full liquids with no nausea vomiting or diarrhea. Left elbow x-ray reporting no fractures, evaluated by orthopedics with no surgical intervention recommended at this time. Doppler of left arm reporting significant subcutaneous edema in the left forearm, no acute DVT, possible acute thrombosis of the superficial left cephalic vein. 03/18/2019 nausea improving on Zofran.appetite fair. Receiving B12 injections. Dietary consult in place. maintained on IV fluid hydration.Negative for orthostatic hypotension but when standing up at bedside by physical therapy,Staff reporting unable to obtain patient's blood pressure, became extremely pale; diet adjusted to include unlimited salt. Thigh-high teds. [place] bowel movements 2 yesterday, and this morning, brn. Current hemoglobin 7.4.afebrile, normal WBC.Denies pain. Significantly weak. Evaluated by physical therapy, subacute rehab recommended at discharge. 03/19/2019 [place] stool last night, hemoglobin 7.6. Ascending colon biopsy, hyperplastic, nonmalignant. Borderline hypotension yesterday afternoon. Reports dizziness with standing. Telemetry sinus rhythm. Echo completed yesterday, report pending. Denies pain. Afebrile, normal WBC. 03/20/2019 status post transfusion of 1 unit of packed RBCs yesterday with significant clinical improvement. Post transfusion ,patient was able to tolerate standing at bedside with PT. Hemoglobin 8.9. Denies chest pain, palpitations, or shortness of breath.. Denies abdominal pain. Consumed 50% of breakfast with no nausea, vomiting.Nonbloody, brown bowel movement this morning. Generalized weakness persists.Telemetry sinus rhythm. Echo technically difficult study, reported moderate left ventricular hypertrophy, normal LV function, EF 55-60%. Evaluated by cardiology with recommendations noted and appreciated. 03/21/2019 Patient is awake alert and oriented. No complaints of chest pain are worsening shortness of breath. Hemoglobin improved to 9.1. No abdominal pain. No nausea vomiting. Otherwise patients oral intake has been very less. Encourage to drink ensure as well. Dizziness likely due to Orthostatic hypotension and hypoalbuminemia. 2-D echocardiogram showed normal ejection fraction. Cardiology has seen the patient. Encourage ambulation and PT OT. Possible discharge to home with home physical therapy. 03/22/2019 Patient denied any complaints of chest pain or shortness of breath. Denied any blood in the stool. No nausea vomiting or abdominal pain. Able to tolerate oral. Patient was started on ensure liquid. Denied any dizziness currently. PTOT consult to increase ambulation. Possible discharge in next 24-48 hours. Significant clinical improvement. Patient cleared by all consults for discharge. Patient is being discharged to [facility] subacute rehab in a stable condition with guarded prognosis. Exam GENERAL: The patient is alert and oriented x3, no acute distress. CARDIOVASCULAR: S1 and S2 present. No murmurs, rubs, or gallops. PULMONARY: Unlabored,Chest is clear to auscultation, no wheezing or crackles. no wheezing ABDOMEN: Soft, nontender, nondistended, normoactive bowel sounds. No palpable organomegaly. NEUROLOGICAL: no focal deficits. The impression and plan of care has been dictated as directed. : I performed a history and examination of this patient, discussed the same with the dictator. I agree with the dictator's note ,documented as a scribe. Any additional findings or plans will be noted. Time taken: 35 min. Patient Condition at Discharge: Stable Plan - Discharge Summary Discharge Rx Participant: Yes New Discharge Prescriptions: New Pantoprazole Sodium [Protonix] 40 mg PO BID #60 tablet. Sodium Chloride Tab 1 gm PO DAILY tab Continue Donepezil [Aricept] 10 mg PO HS Lipase/Protease/Amylase [Sophia Hollingsworth 36,000 Units Capsule] 72,000 units PO TID BETWEEN MEALS Lipase/Protease/Amylase [Sophia Hollingsworth 36,000 Units Capsule] 108,000 units PO TID Aspirin EC [Ecotrin Low Dose] 81 mg PO DAILY Discharge Medication List Donepezil [Aricept] 10 mg PO HS 04/25/18 [History] Aspirin EC [Ecotrin Low Dose] 81 mg PO DAILY 03/12/19 [History] Lipase/Protease/Amylase [Sophia Hollingsworth 36,000 Units Capsule] 72,000 units PO TID BETWEEN MEALS 03/12/19 [History] Lipase/Protease/Amylase [Sophia Hollingsworth 36,000 Units Capsule] 108,000 units PO TID 03/12/19 [History] Pantoprazole Sodium [Protonix] 40 mg PO BID #60 tablet. 03/23/19 [Rx] Sodium Chloride Tab 1 gm PO DAILY tab 03/23/19 [Rx] Follow up Appointment(s)/Referral(s): Donnell Sharif DO [Doctor of Osteopathic Medicine] - As Needed Juliane Obrien MD [STAFF PHYSICIAN] - 04/07/19 11:15 am Jasbir Rollins DO [Primary Care Provider] - 1 Week (After DC from subacute rehab) Activity/Diet/Wound Care/Special Instructions: [facility] subacute rehab Diet regular, liberal salt intake Activity: As tolerated CBC, BMP in 3 days Discharge Disposition: TRANSFER TO SNF/ECF
[2019-03-23 12:02] VITALS: BP 110/69; PULSE 76; RESP 16; TEMP 97.8
== END 2019-03-23 15:33 | DRG 378 ==
LOC: EC 14:24 → 4SSUR 16:15 → OBSVTOIN 03-13 11:07 → 3NMEDONC 03-16 12:36
PROVIDERS: ADMIT Family Medicine; ATTEND Family Medicine
PROC: 30233N1 Transfusion of Nonautologous Red Blood Cells into Peripheral Vein, Percutaneous Approach (ICD-10-PCS; 2019-03-13)
PROC: 0DBK8ZZ Excision of Ascending Colon, Via Natural or Artificial Opening Endoscopic (ICD-10-PCS; principal; 2019-03-14 08:00)
PROC: 0DJ08ZZ Inspection of Upper Intestinal Tract, Via Natural or Artificial Opening Endoscopic (ICD-10-PCS; 2019-03-14 08:00)
DX: K57.31 Diverticulosis of large intestine without perforation or abscess with bleeding (principal); C25.9 Malignant neoplasm of pancreas, unspecified; D62 Acute posthemorrhagic anemia; E44.0 Moderate protein-calorie malnutrition; I82.612 Acute embolism and thrombosis of superficial veins of left upper extremity; D51.9 Vitamin B12 deficiency anemia, unspecified; E86.1 Hypovolemia; G30.9 Alzheimer's disease, unspecified; F02.80 Dementia in other diseases classified elsewhere, unspecified severity, without behavioral disturbance, psychotic disturbance, mood disturbance, and anxiety; D12.2 Benign neoplasm of ascending colon; E78.5 Hyperlipidemia, unspecified; I51.7 Cardiomegaly; I95.1 Orthostatic hypotension; K21.9 Gastro-esophageal reflux disease without esophagitis; K29.70 Gastritis, unspecified, without bleeding; M19.90 Unspecified osteoarthritis, unspecified site; Z79.82 Long term (current) use of aspirin; Z79.899 Other long term (current) drug therapy; Z96.642 Presence of left artificial hip joint; Z90.411 Acquired partial absence of pancreas; Z98.1 Arthrodesis status; Z87.891 Personal history of nicotine dependence; Z85.46 Personal history of malignant neoplasm of prostate; Z85.028 Personal history of other malignant neoplasm of stomach; Z90.79 Acquired absence of other genital organ(s); Z68.24 Body mass index [BMI] 24.0-24.9, adult; Z80.42 Family history of malignant neoplasm of prostate; Z80.9 Family history of malignant neoplasm, unspecified
CPT/HCPCS: 36415; 43235; 45385; 80048; 80053; 82272; 82607; 82728; 82747; 83540; 83550; 83735; 84484; 85025; 85027; 85610; 85730; 86850; 86900; 86901; 86920; 88305; 93005; 93306; 96374; 99285